=== PATIENT | female | born 1950 | race Caucasian/White ===

== ENCOUNTER → 2017-02-20 | Outpatient (CLI) | payer MEDICARE ==
[~2017-02-20] MED LIST: AMLO2.5T PO; AMLO5TAB2 PO; ASPI-198 PO; BIOT800T PO; CALC-656 PO; CPR500T PO; DIAZ5TAB3 PO; FAMO-119 PO; HYDR-3729 PO; HYDR-3812 PO; METR500T PO; MULT-608 PO; OMEP20CA12 PO; OMEP40CA36 PO; OXYC-12 PO; POLY17PO23 PO; SIMV20TA3 PO
[2017-02-20 15:42] LABS: BASOPHILS % (AUTO) 0 % (0-10); EOSINOPHILS # (AUTO) 0.4 10^3/uL (0.0-0.3); EOSINOPHILS % (AUTO) 5 % (0-10); LYMPHOCYTES # (AUTO) 2.9 X 10^3 (1.0-4.0); LYMPHOCYTES % (AUTO) 41 % (12-44); MEAN CORPUSCULAR HEMOGLOBIN 30 PG (25-34); MEAN CORPUSCULAR HGB CONC 33 G/DL (32-36); MEAN CORPUSCULAR VOLUME 92 FL (80-99); MEAN PLATELET VOLUME 9.8 FL (7.4-10.4); MONOCYTES # (AUTO) 0.5 X 10^3 (0.0-1.0); MONOCYTES % (AUTO) 7 % (0-12); NEUTROPHILS # (AUTO) 3.3 X 10^3 (1.8-7.8); NEUTROPHILS % (AUTO) 47 % (42-75); PLATELET COUNT 253 10^3/uL (130-400); RED BLOOD COUNT 4.03 10^6/uL (4.35-5.85); RED CELL DISTRIBUTION WIDTH 13.6 % (10.0-14.5); WHITE BLOOD COUNT 7.1 10^3/uL (4.3-11.0)
[2017-02-20 16:02] LABS: ERYTHROCYTE SEDIMENTATION RATE 7 MM/HR (0-30)
[2017-02-20 16:12] LABS: ALANINE AMINOTRANSFERASE 16 U/L (0-55); ALBUMIN 3.8 GM/DL (3.2-4.5); ANION GAP 8 MMOL/L (5-14); ASPARTATE AMINO TRANSFERASE 17 U/L (5-34); BILIRUBIN,TOTAL 0.5 MG/DL (0.1-1.0); BLOOD UREA NITROGEN 13 MG/DL (7-18); BUN/CREATININE RATIO 19; CALCIUM 9.1 MG/DL (8.5-10.1); CARBON DIOXIDE 28 MMOL/L (21-32); CHLORIDE 103 MMOL/L (98-107); CREATININE SERUM 0.67 MG/DL (0.60-1.30); GFR ESTIMATED > 60; GLUCOSE 80 MG/DL (70-105); POTASSIUM 3.4 MMOL/L (3.6-5.0); SODIUM 139 MMOL/L (135-145); TOTAL PROTEIN 6.6 GM/DL (6.4-8.2); URIC ACID 4.7 MG/DL (2.6-7.2)
--- NOTE | 2017-02-20 16:35 | Diagnostic Imaging Report ---
EXAMINATION: Left lower extremity duplex venous ultrasound. TECHNIQUE: DVT protocol. Multiple sonographic images with color Doppler and waveform interrogation were performed of the left lower extremity veins with compression and augmentation maneuvers. INDICATION: Left leg pain. FINDINGS: The left lower extremity veins from the groin to below the knee veins were examined with normal color-flow, compressibility and waveform demonstrated. The great saphenous vein is patent. IMPRESSION: No evidence of DVT in the left lower extremity. Dictated by: Dictated on workstation # [id number]
== END ==
LOC: RAD 15:15
PROVIDERS: ATTEND Internal Medicine
DX: M79.605 Pain in left leg (principal)
CPT/HCPCS: 36415; 80053; 84550; 85025; 85652

== ENCOUNTER → 2017-03-01 | Outpatient (CLI) | payer MEDICARE ==
--- NOTE | 2017-03-01 19:46 | Diagnostic Imaging Report ---
Bilateral screening mammogram 2D views with tomosynthesis The current study was also evaluated with a Computer Aided Detection (CAD) system. Indication: Screening. No current complaints stated on the questionnaire. COMPARISON: 02/29/16. FINDINGS: The breasts are composed of heterogeneously dense parenchyma which may decrease mammographic sensitivity. No mass, architectural distortion or suspicious cluster of calcifications seen. Allowing for technique and positional differences, no suspicious change is seen. IMPRESSION: Dense breasts with no definite change. ACR BI-RADS Category 2: Benign findings. Result letter will be mailed to the patient. Note: At least 10% of breast cancer is not imaged by mammography. Dictated by: Dictated on workstation # [id number]
== END ==
LOC: RAD 08:59
PROVIDERS: ATTEND Internal Medicine
DX: Z12.31 Encounter for screening mammogram for malignant neoplasm of breast (principal)
CPT/HCPCS: 77067

== ENCOUNTER 2017-05-02 08:57 | Emergency (ER) | payer MEDICARE ==
[~2017-05-02] VITALS: Ht 165.1 cm; Wt 68.0 kg
[~2017-05-02 08:57] MED LIST changes: +ACHD5005 PO; -HYDR-3812 PO
--- NOTE | 2017-05-02 09:27 | ED GU-Female ---
General Stated Complaint: BREAKOUTS AND PAIN IN GENITAL AREA Source: patient History of Present Illness Time seen by provider: 09:17 Initial Comments C/O SEVERE PAIN AND " RASH" IN GENITAL AREA SINCE 04/28/17 PT HAD UTI SYMPTOMS AND ON 04/08 WAS PLACED ON CIPRO ON 04/21/17, SAW DENTIST FOR JAW PAIN AND WAS PLACED ON AMOXIL BEGAN HAVING THESE SYMPTOMS ON 04/28/17--THOUGHT SHE HAD A YEAST INFECTION FROM THE ANTIBIOTICS-- AND WAS STARTED ON FLUCONAZOLE-SUPPOSED TO TAKE FOR 5 DAYS, BUT HAS ONLY TAKEN 2 PILLS PT STATES SHE STILL HAS BURNING ON URINATION AND SOME INCONTINENCE ON URINATION C/O SWOLLEN GLANDS IN BILATERAL GROIN AREA X 2 DAYS NO KNOWN FEVER, BUT HAD BRIEF EPISODE OF NAUSEA THIS AM--NOT NOW NO ABDOMINAL PAIN OR BACK PAIN NO SIGNIFICANT VAGINAL DISCHARGE PT HAS HAD SAME SEXUAL PARTNER FOR THE LAST 6 MONTHS. PRIOR TO 6 MONTHS AGO, PT HAD BEEN CELIBATE FOR MANY YEARS. LAST INTERCOURSE WAS 04/28/17--WAS HAVING SYMPTOMS AT THAT TIME, BUT SYMPTOMS HAVE GOTTEN WORSE SINCE THEN NO HISTORY OF SIMILAR HAS NOT TAKEN ANYTHING FOR PAIN Allergies and Home Medications Allergies Coded Allergies: Sulfa (Sulfonamide Antibiotics) (Verified Allergy, Unknown, FACE SWELLING / SECRETIONS, 10/13/15) Home Medications Acyclovir 30 Gm Oint, 30 GM TP Q4H, #1 Prescribed by: ROBYN KHAN on 05/02/17 1012 Amlodipine Besylate 5 Mg Tablet, 5 MG PO HS, (Reported) Diazepam 5 Mg Tablet, 10 MG PO HS, #10 Prescribed by: PROSPER COCHRAN on 10/19/15 0956 Famotidine 20 Mg Tablet, 20 MG PO DAILY PRN for HEARTBURN, (Reported) Hydrocodone/Acetaminophen 1 Each Tablet, 1-2 TAB PO Q4H PRN for pain, #60 Prescribed by: PROSPER COCHRAN on 10/19/15 0956 Hydrocodone/Ibuprofen 1 Each Tablet, 1-2 EACH PO Q4H, #20 Prescribed by: ROBYN KHAN on 05/02/17 1012 Lidocaine HCl 15 Ml Solution, 15 ML MM Q 1-2 HOURS, #120 Prescribed by: ROBYN KHAN on 05/02/17 1012 Multivitamins 1 Tab Tablet, 1 TAB PO HS, (Reported) Omeprazole 20 Mg Capsule.dr, 20 MG PO DAILY PRN for HEARTBURN, (Reported) Polyethylene Glycol 3350 17 Gm Powd.pack, 17 GM PO DAILY PRN PRN for CONSTIPATION, #1 Prescribed by: PROSPER COCHRAN on 10/19/15 0956 Simvastatin 20 Mg Tablet, 20 MG PO HS, (Reported) Valacyclovir HCl 1,000 Mg Tablet, 1,000 MG PO TID, #30 Prescribed by: ROBYN KHAN on 05/02/17 1012 Constitutional: no symptoms reported Respiratory: no symptoms reported Cardiovascular: no symptoms reported Gastrointestinal: see HPI Genitourinary: see HPI : No Musculoskeletal: no symptoms reported Skin: no symptoms reported Psychiatric/Neurological: No Symptoms Reported Past Tqjeyjw-Enpbqi-Hoqpgy Hx Patient Social History Recent Foreign Travel: No Contact w/Someone Who Travel: No Immunizations Up To Date Date of Pneumonia Vaccine: Jun 01, 2010 Seasonal Allergies Seasonal Allergies: No Cardiovascular Cardiac Disorders: High Cholesterol, Hypertension Neurological History of Neurological Disord: No Reproductive System Hx Reproductive Disorders: No Sexually Transmitted Disease: No HIV/AIDS: No Gastrointestinal History of Gastrointestinal Di: Yes Gastrointestinal Disorders: Gastroesophageal Reflux, Huerta's Esophagus, Chronic Constipation, Hiatal Hernia Musculoskeletal History of Musculoskeletal Dis: No Endocrine History of Endocrine Disorders: No HEENT History of HEENT Disorders: No Cancer History of Cancer: No Psychosocial History of Psychiatric Problem: Yes Behavioral Health Disorders: Anxiety Integumentary History of Skin or Integumenta: No Blood Transfusions History of Blood Disorders: No Adverse Reaction to a Blood Tr: No Family Medical History Significant Family History: No Pertinent Family Hx Family Medial History: Unknown family medical history 19 FATHER 19 MOTHER G8 BROTHER G8 SISTER Physical Exam Vital Signs Vital Sign - Last 12Hours 05/02/17 09:30 Temp 100.0 Pulse 84 Resp 18 B/P (MAP) 144/82 (102) Pulse Ox 97 O2 Delivery Room Air Capillary Refill : General Appearance: WD/WN, no apparent distress, thin Cardiovascular: regular rate, rhythm Respiratory: normal breath sounds Gastrointestinal: normal bowel sounds, non tender, soft Pelvic: other (EXTENSIVE ULCERATIONS TO LABIA, INTROITUS AND EXTENDING TO MONS AREA. MODERATE SWELLING OF AFFECTED AREA WELL. +BILATERAL INGUINAL ADENOPATHY. UNABLE TO DO SPECULUM OR DIGITAL EXAM DUE TO SEVERE PAIN, AND HAD MUCH DIFFICULTY OBTAINING SPECIMEN SWABS OF VAGINAL AREA AND OF LESIONS/ULCERS, DUE TO SEVERE PAIN . 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, no motor/sensory deficits, alert, oriented x 3 Skin: normal color, warm/dry Lymphatic: inguinal node tender (R), inguinal node tender (L) Progress/Results/Core Measures Suspected Sepsis SIRS Temperature: Pulse: Respiratory Rate: Laboratory Tests 05/02/17 10:21: White Blood Count 7.1 Blood Pressure / Mean: Laboratory Tests 05/02/17 10:21: Platelet Count 232 Results/Orders Lab Results Laboratory Tests Test 05/02/17 09:31 05/02/17 10:21 Range/Units Urine Color YELLOW Urine Clarity SLIGHTLY CLOUDY Urine pH 7 5-9 Urine Specific Patriot 1.005 L 1.016-1.022 Urine Protein 2+ H NEGATIVE Urine Glucose (UA) NEGATIVE NEGATIVE Urine Ketones 2+ H NEGATIVE Urine Nitrite NEGATIVE NEGATIVE Urine Bilirubin NEGATIVE NEGATIVE Urine Urobilinogen NORMAL NORMAL MG/DL Urine Leukocyte Esterase 3+ H NEGATIVE Urine RBC (Auto) 3+ H NEGATIVE Urine RBC 5-10 H /HPF Urine WBC 25-50 H /HPF Urine Squamous Epithelial Cells 2-5 /HPF Urine Crystals NONE /LPF Urine Bacteria NEGATIVE /HPF Urine Casts NONE /LPF Urine Mucus SMALL H /LPF Urine Culture Indicated YES White Blood Count 7.1 4.3-11.0 10^3/uL Red Blood Count 4.32 L 4.35-5.85 10^6/uL Hemoglobin 13.1 11.5-16.0 G/DL Hematocrit 40 35-52 % Mean Corpuscular Volume 92 80-99 FL Mean Corpuscular Hemoglobin 30 25-34 PG Mean Corpuscular Hemoglobin Concent 33 32-36 G/DL Red Cell Distribution Width 13.4 10.0-14.5 % Platelet Count 232 130-400 10^3/uL Mean Platelet Volume 9.3 7.4-10.4 FL Neutrophils (%) (Auto) 77 H 42-75 % Lymphocytes (%) (Auto) 13 12-44 % Monocytes (%) (Auto) 9 0-12 % Eosinophils (%) (Auto) 1 0-10 % Basophils (%) (Auto) 1 0-10 % Neutrophils # (Auto) 5.5 1.8-7.8 X 10^3 Lymphocytes # (Auto) 0.9 L 1.0-4.0 X 10^3 Monocytes # (Auto) 0.6 0.0-1.0 X 10^3 Eosinophils # (Auto) 0.1 0.0-0.3 10^3/uL Basophils # (Auto) 0.0 0.0-0.1 10^3/uL Micro Results Microbiology 05/02/17 Genital Culture, Resulted Pending 05/02/17 LORENZO Preparation, Resulted Pending 05/02/17 Wet Prep - Final, Resulted My Orders Orders - ROBYN KHAN DO Ua Culture If Indicated (05/02/17 09:27) Urine Culture (05/02/17 09:31) Neisseria Gonorrhea Dna (05/02/17 09:59) Chlam Dna Probe (05/02/17 09:59) Genital Culture (05/02/17 09:59) Wet Prep (05/02/17 09:59) Lorenzo Prep (05/02/17 09:59) Herpes Simplex Culture (05/02/17 09:59) Herpes Simplex Virus 1&2 G&M (05/02/17 09:59) Cbc With Automated Diff (05/02/17 09:59) Comprehensive Metabolic Panel (05/02/17 09:59) Hepatitis Panel Acute (05/02/17 09:59) Hiv 1&2 Antibody (05/02/17 09:59) Syphilis Antibody Screen (05/02/17 09:59) Ceftriaxone Injection (Rocephin Injectio (05/02/17 10:00) Lidocaine 1% Injection (Xylocaine 1% Inj (05/02/17 10:00) Azithromycin Tablet (Zithromax Tablet) (05/02/17 10:00) Lidocaine Pf 1% 5 Ml Injection (Xylocain (05/02/17 10:31) Vital Signs/I&O Vital Sign - Last 12Hours 05/02/17 09:30 Temp 100.0 Pulse 84 Resp 18 B/P (MAP) 144/82 (102) Pulse Ox 97 O2 Delivery Room Air Capillary Refill : Departure Impression Impression: Primary Impression: Genital ulcer, female Additional Impression: suspected genital herpes Disposition: 01 HOME, SELF-CARE Condition: Stable Departure-Patient Inst. Referrals: PROSPER COCHRAN DO (PCP/Family) Primary Care Physician Patient Instructions: Genital Herpes (DC), Sexually-Transmitted Diseases (DC) Add. Discharge Instructions: NO INTERCOURSE UNTIL YOU ARE RECHECKED AND CLEARED BY YOUR DR. TYLENOL AND MOTRIN NEEDED FOR PAIN FOLLOW UP WITH DR. COCHRAN THIS WEEK FOR FURTHER CARE Scripts Lidocaine HCl (Lidocaine HCl Viscous) 15 Ml Solution 15 ML MM Q 1-2 HOURS for Pain, #120 ML Prov: ROBYN KHAN DO 05/02/17 Acyclovir (Zovirax) 30 Gm Oint 30 GM TP Q4H, #1 TUBE Prov: ROBYN KHAN DO 05/02/17 Valacyclovir HCl (Valtrex) 1,000 Mg Tablet 1000 MG PO TID, #30 TAB Prov: ROBYN KHAN DO 05/02/17 Hydrocodone/Ibuprofen (Hydrocodone-Ibuprofen 7.5-200) 1 Each Tablet 1-2 EACH PO Q4H for Pain, #20 TAB Prov: ROBYN KHAN DO 05/02/17 ROBYN KHAN DO May 02, 2017 09:27
[2017-05-02 09:36] LABS: BILIRUBIN,URINE NEGATIVE (NEGATIVE); KETONES,URINE 2+ (NEGATIVE); LEUKOCYTE ESTERASE ,URINE 3+ (NEGATIVE); NITRITE,URINE NEGATIVE (NEGATIVE); PH,URINE 7 (5-9); PROTEIN,URINE 2+ (NEGATIVE); UROBILINOGEN,URINE NORMAL (NORMAL)
[2017-05-02 09:51] LABS: WBC,URINE 25-50 /HPF
[2017-05-02] MEDS ORDERED: LIDOCAINE 1% INJ 20 ML (XYLOCAINE) VIAL INJ ONE (10:00)
[2017-05-02] MEDS ORDERED: cefTRIAXone 1 GM (ROCEPHIN) VIAL IM ONE (10:00)
[2017-05-02] MEDS ORDERED: AZITHROMYCIN 250 MG TAB (ZITHROMAX) PO ONE (10:00)
[2017-05-02] MEDS ORDERED: VALA10004 PO (10:12)
[2017-05-02] MEDS ORDERED: LIDO15SO2 MM (10:12)
[2017-05-02] MEDS ORDERED: ACYC30OI TP (10:12)
[2017-05-02] MEDS ORDERED: HYDR-87 PO (10:12)
[2017-05-02 10:29] LABS: BASOPHILS % (AUTO) 1 % (0-10); EOSINOPHILS # (AUTO) 0.1 10^3/uL (0.0-0.3); EOSINOPHILS % (AUTO) 1 % (0-10); LYMPHOCYTES # (AUTO) 0.9 X 10^3 (1.0-4.0); LYMPHOCYTES % (AUTO) 13 % (12-44); MEAN CORPUSCULAR HEMOGLOBIN 30 PG (25-34); MEAN CORPUSCULAR HGB CONC 33 G/DL (32-36); MEAN CORPUSCULAR VOLUME 92 FL (80-99); MEAN PLATELET VOLUME 9.3 FL (7.4-10.4); MONOCYTES # (AUTO) 0.6 X 10^3 (0.0-1.0); MONOCYTES % (AUTO) 9 % (0-12); NEUTROPHILS # (AUTO) 5.5 X 10^3 (1.8-7.8); NEUTROPHILS % (AUTO) 77 % (42-75); PLATELET COUNT 232 10^3/uL (130-400); RED BLOOD COUNT 4.32 10^6/uL (4.35-5.85); RED CELL DISTRIBUTION WIDTH 13.4 % (10.0-14.5); WHITE BLOOD COUNT 7.1 10^3/uL (4.3-11.0)
[2017-05-02] MEDS ORDERED: LIDOCAINE PF 1% 5 ML (XYLOCAINE) AMP ONE (10:31)
[2017-05-02 10:53] LABS: ALANINE AMINOTRANSFERASE 14 U/L (0-55); ALBUMIN 3.8 GM/DL (3.2-4.5); ANION GAP 13 MMOL/L (5-14); ASPARTATE AMINO TRANSFERASE 15 U/L (5-34); BILIRUBIN,TOTAL 0.5 MG/DL (0.1-1.0); BLOOD UREA NITROGEN 10 MG/DL (7-18); BUN/CREATININE RATIO 15; CALCIUM 8.5 MG/DL (8.5-10.1); CARBON DIOXIDE 24 MMOL/L (21-32); CHLORIDE 102 MMOL/L (98-107); CREATININE SERUM 0.68 MG/DL (0.60-1.30); GFR ESTIMATED > 60; GLUCOSE 93 MG/DL (70-105); POTASSIUM 3.4 MMOL/L (3.6-5.0); SODIUM 139 MMOL/L (135-145); TOTAL PROTEIN 6.5 GM/DL (6.4-8.2)
[2017-05-02 10:55] VITALS: BP 144/82
[2017-05-03 06:42] LABS: HIV AG AB SCREEN Non-Reactive (Non-Reactive)
[2017-05-03 06:43] LABS: SYPHILIS SCREEN PT Non-Reactive (Non-Reactive)
[2017-05-03 06:50] LABS: HERPES SIMPLEX VIRUS 1 IGG/EIA 5.67 H INDEX (0.00-0.89)
[2017-05-03 06:51] LABS: HSV 1 IGG INTRP Positive (Negative)
[2017-05-03 06:52] LABS: HERPES SIMPLEX VIRUS 2 IGG EIA 0.32 INDEX (0.00-0.89); HSV 2 IGG INTRP Negative (Negative)
[2017-05-04 06:30] LABS: CHLAMYDIA DNA PROBE PT Not Detected (Not Detected)
[2017-05-04 06:31] LABS: NEISSERIA GONORRHEA DNA Not Detected (Not Detected)
== END 2017-05-02 10:59 | disposition home or self-care (01) ==
LOC: EDUNIT# 08:57 → ER 08:59
DX: N76.6 Ulceration of vulva (principal); E78.00 Pure hypercholesterolemia, unspecified; I10 Essential (primary) hypertension; K21.9 Gastro-esophageal reflux disease without esophagitis; F41.9 Anxiety disorder, unspecified; Z87.19 Personal history of other diseases of the digestive system
CPT/HCPCS: 36415; 80053; 80074; 81000; 85025; 86695; 86696; 86703; 86780; 87070; 87088; 87210; 87220; 87254; 87491; 87591; 99284

== ENCOUNTER 2017-05-04 17:15 | Inpatient (IN) | payer MEDICARE ==
[~2017-05-04] VITALS: Ht 165.1 cm; Wt 68.0 kg
[~2017-05-04 17:15] MED LIST changes: +ACYC30OI TP; +HYDR-87 PO; +LIDO15SO2 MM; +VALA10004 PO
[2017-05-04 17:20] VITALS: BP 147/88
[2017-05-04] MEDS ORDERED: diphenhydrAMINE 25 MG TAB (BENADRYL) PO PRN (18:30)
[2017-05-04] MEDS ORDERED: oxyCODONE/APAP 7.5-325 MG (PERCOCET 7.5) TABLET PO PRN (18:30)
[2017-05-04] MEDS ORDERED: ACETAMINOPHEN 500 MG TAB (TYLENOL) PO PRN (18:30)
[2017-05-04] MEDS ORDERED: IBUPROFEN TABLET 200 MG TAB PO PRN (18:30)
[2017-05-04] MEDS ORDERED: ONDANSETRON 4 MG/2 ML (SDV) Z0FRAN IVP PRN (18:30)
[2017-05-04] MEDS: fentaNYL INJECTION 100 MCG/2 ML AMP IVP PRN ×3 (18:33→23:10)
[2017-05-04] MEDS: NS IV 1000 ML 1,000 ML IV SCH (18:34)
[2017-05-04 18:42] LABS: BASOPHILS % (AUTO) 1 % (0-10); EOSINOPHILS # (AUTO) 0.3 10^3/uL (0.0-0.3); EOSINOPHILS % (AUTO) 4 % (0-10); HEMATOCRIT 38 % (35-52); HEMOGLOBIN 12.9 G/DL (11.5-16.0); LYMPHOCYTES # (AUTO) 2.6 X 10^3 (1.0-4.0); LYMPHOCYTES % (AUTO) 30 % (12-44); MEAN CORPUSCULAR HEMOGLOBIN 31 PG (25-34); MEAN CORPUSCULAR HGB CONC 34 G/DL (32-36); MEAN CORPUSCULAR VOLUME 90 FL (80-99); MEAN PLATELET VOLUME 9.8 FL (7.4-10.4); MONOCYTES # (AUTO) 0.8 X 10^3 (0.0-1.0); MONOCYTES % (AUTO) 9 % (0-12); NEUTROPHILS # (AUTO) 5.1 X 10^3 (1.8-7.8); NEUTROPHILS % (AUTO) 58 % (42-75); PLATELET COUNT 231 10^3/uL (130-400); RED BLOOD COUNT 4.19 10^6/uL (4.35-5.85); RED CELL DISTRIBUTION WIDTH 12.9 % (10.0-14.5); WHITE BLOOD COUNT 8.8 10^3/uL (4.3-11.0)
[2017-05-04] MEDS ORDERED: CATHETER FLUSH 10 ML SYR IV PRN (18:45)
[2017-05-04] MEDS ORDERED: INFLUENZA TRIvalent 2017-2018 0.5 ML/45 MCG SYR IM ONE (18:45)
[2017-05-04 18:59] LABS: ERYTHROCYTE SEDIMENTATION RATE 16 MM/HR (0-30)
[2017-05-04 19:00] LABS: ALANINE AMINOTRANSFERASE 14 U/L (0-55); ALBUMIN 3.7 GM/DL (3.2-4.5); ALKALINE PHOSPHATASE 68 U/L (40-136); BILIRUBIN,TOTAL 0.4 MG/DL (0.1-1.0); BUN/CREATININE RATIO 15; CALCIUM 9.4 MG/DL (8.5-10.1); CARBON DIOXIDE 29 MMOL/L (21-32); CHLORIDE 101 MMOL/L (98-107); CREATININE SERUM 0.68 MG/DL (0.60-1.30); GFR ESTIMATED > 60; GLUCOSE 100 MG/DL (70-105); POTASSIUM 3.7 MMOL/L (3.6-5.0); SODIUM 139 MMOL/L (135-145); TOTAL PROTEIN 6.9 GM/DL (6.4-8.2)
[2017-05-04 19:57] VITALS: BP 127/57
[2017-05-04 20:00] VITALS: BP 131/72
[2017-05-04] MEDS: ALPRAZolam 0.25 MG (XANAX) TAB PO PRN (23:14)
[2017-05-04 23:47] VITALS: BP 122/60
[2017-05-05] MEDS: NS IV 1000 ML 1,000 ML IV SCH ×3 (03:06→19:13)
[2017-05-05 03:56] VITALS: BP 120/65
[2017-05-05] MEDS: fentaNYL INJECTION 100 MCG/2 ML AMP IVP PRN ×2 (05:41→09:30)
[2017-05-05 08:00] VITALS: BP 131/77
[2017-05-05] MEDS: ACYCLOVIR IV SCH ×2 (09:29→16:30)
[2017-05-05] MEDS: D5W IV SCH ×2 (09:29→16:30)
[2017-05-05] MEDS ORDERED: LIDO15SO2 MM (09:53)
[2017-05-05] MEDS ORDERED: NFBIOT1000 PO (10:00)
[2017-05-05] MEDS ORDERED: ASCO-262 PO (10:00)
[2017-05-05] MEDS ORDERED: GINK60CA PO (10:00)
[2017-05-05] MEDS ORDERED: MULT1TAB69 PO (10:00)
[2017-05-05] MEDS ORDERED: CALC-676 PO (10:00)
[2017-05-05] MEDS: PANTOPRAZOLE 40 MG (PROTONIX) TAB PO SCH (11:02)
[2017-05-05] MEDS: SUCRALFATE 1 GM (CARAFATE) TAB PO SCH ×3 (11:02→20:05)
--- NOTE | 2017-05-05 11:02 | Consultation ---
History of Present Illness History of Present Illness Patient Consulted On(fredy/time) 05/05/17 10:57 Date Seen by Provider: May 05, 2017 Time Seen by Provider: 08:35 Reason for Visit: dehydration, rash, vulvovaginal ulcerations, urinary retention History of Present Illness This 67-year-old female is a consultation to me from Dr. Virginia Toro for suspicion of HSV-2 outbreak, as well as associated diffuse laterally rash. The patient reports that this all began with what she suspected was a UTI about 2 weeks ago. She was started on antibiotic, and had a subsequent what she thought was yeast infection. She started the treatment for the yeast infection over the rash in the vagina seemed worse the point that it felt like razor blades. She ended up going to the emergency department the day after Adele , and was told at that visit that she had a herpes outbreak and was started on Valtrex. The next day after undergoing 2 doses of Valtrex she began to have a diffuse bodily rash that she describes is non-pleuritic. She reports diffuse muscle pain especially in her buttocks and hamstring area. She reports pains all over, and reports that this rash is becoming painful to the touch. She denies any fevers, but reports a weight loss of 15 pounds in the last month and a half. She reports that she underwent hysterectomy in her 30s for endometriosis followed by subsequent bilateral oophorectomy later in her 30s. She reports being on estrogen replacement for a period of time however when she began to approach menopausal age she was taken off the hormone replacement. Otherwise she reports herself as being a fairly healthy young lady. She recently became sexually active with a new partner who she started seeing in the past 6 months. She denies any history of sexual transmitted diseases in the past denies any history of abnormal Pap smears in the past. Allergies and Home Medications Allergies Coded Allergies: Sulfa (Sulfonamide Antibiotics) (Verified Allergy, Unknown, FACE SWELLING / SECRETIONS, 10/13/15) Home Medications Acyclovir 30 Gm Oint, 30 GM TP Q4H, #1 Prescribed by: ROBYN KHAN on 05/02/17 1012 Amlodipine Besylate 5 Mg Tablet, 5 MG PO DAILY, (Reported) Ascorbate Calcium 500 Mg Tablet, 500 MG PO DAILY, (Reported) Biotin 1,000 Mcg Tablet, 1,000 MCG PO DAILY, (Reported) Calcium Carbonate/Vitamin D3 1 Each Tablet, 1 TAB PO DAILY, (Reported) Ginkgo Biloba Tula Extract 60 Mg Capsule, 60 MG PO DAILY, (Reported) Hydrocodone/Ibuprofen 1 Each Tablet, 1-2 EACH PO Q4H, #20 Prescribed by: ROBYN KHAN on 05/02/17 1012 Lidocaine HCl 15 Ml Solution, 15 ML MM EVERY 1-2 HOURS PRN for PAIN-MILD, ( Reported) Multivitamin 1 Each Tablet, 1 TAB PO DAILY, (Reported) Valacyclovir HCl 1,000 Mg Tablet, 1,000 MG PO TID, #30 Prescribed by: ROBYN KHAN on 05/02/17 1012 Past Cspnnxl-Rbnics-Hanfkq Hx Patient Social History Alcohol Use: Occasionally Uses Recreational Drug Use: No Smoking Status: Never a Smoker Recent Foreign Travel: No Contact w/Someone Who Travel: No Recent Infectious Disease Expo: No Recent Hopitalizations: No Immunizations Up To Date PED Vaccines UTD: Yes Date of Pneumonia Vaccine: Jun 01, 2010 Seasonal Allergies Seasonal Allergies: No Surgeries History of Surgeries: Yes (CYST REMOVED FROM HEAD, UMB HERNIA, scalp lesion) Respiratory History of Respiratory Disorde: No Currently Using CPAP: No Currently Using BIPAP: No Cardiovascular History of Cardiac Disorders: Yes Cardiac Disorders: High Cholesterol, Hypertension Neurological History of Neurological Disord: No Reproductive System Hx Reproductive Disorders: No Sexually Transmitted Disease: No HIV/AIDS: No Genitourinary History of Genitourinary Disor: No Gastrointestinal History of Gastrointestinal Di: Yes Gastrointestinal Disorders: Gastroesophageal Reflux, Huerta's Esophagus, Chronic Constipation, Diverticulosis, Hiatal Hernia Musculoskeletal History of Musculoskeletal Dis: No Endocrine History of Endocrine Disorders: No HEENT History of HEENT Disorders: No Cancer History of Cancer: No Psychosocial History of Psychiatric Problem: Yes Behavioral Health Disorders: Anxiety Integumentary History of Skin or Integumenta: No Blood Transfusions History of Blood Disorders: No Adverse Reaction to a Blood Tr: No Family Medical History Significant Family History: No Pertinent Family Hx Family Medial History: Unknown family medical history 19 FATHER 19 MOTHER G8 BROTHER G8 SISTER Review of Systems-General Constitutional: see HPI EENTM: see HPI Respiratory: see HPI Cardiovascular: see HPI Gastrointestinal: see HPI Genitourinary: see HPI : No Musculoskeletal: see HPI Skin: see HPI Psychiatric/Neurological: See HPI All Other Systems Reviewed Negative Unless Noted: Yes Physical Exam-General Problems Physical Exam Vital Signs Vital Sign - Last 12Hours 05/04/17 17:20 Temp 96.6 Pulse 76 Resp 20 B/P (MAP) 147/88 (107) Pulse Ox 96 O2 Delivery Room Air Capillary Refill : General Appearance: WD/WN, no apparent distress HEENT: PERRL/EOMI Neck: non-tender, supple, normal inspection Respiratory: normal breath sounds Cardiovascular: regular rate, rhythm Gastrointestinal: non tender, soft Rectal: deferred Genital/Rectal: other (there are several circular ulcerations of the vulva as well as diffuse swelling of the vulva making a vaginal exam extremely painful. 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 Toro and pain control and IV fluid hydration Will make further recommendations pending patient's course in response to treatment Clinical Quality Measures DVT/VTE Risk/Contraindication: Risk Factor Score Per Nursin RFS Level Per Nursing on Admit: 3=High JAYESH RODRIGUEZ DO May 05, 2017 11:02
[2017-05-05 12:00] VITALS: BP 128/76
--- NOTE | 2017-05-05 12:07 | History & Physical-Hospitalist ---
HPI History of Present Illness: HPI/Chief Complaint CC: Dehydration due to systemic herpes virus with vulvar inflammation HPI: This is a 67 yoWF clinic pt of [facility]. Pt was seen in clinic yesterday with severe rash and dehydration and vulvar inflammation from blisters from presumed herpes genitalis. No fever, vitals stable, WBC 8.8, CMP normal, CRP elevated 3.29. 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 Rash has not progressed and is looking better. Labs discussed and look good. Pt confirms seeing Dr. White. Pt states she discussed the large hives she had previously with Dr. White Physical exam stable. Pt states he has been coughing Pt states she has been tearing up. Pt states she needs another endoscopy and wonders if her issues are due to stress. I confirmed that this can happen. Pt asked how this started, I informed the pt that we may not know what caused her major symptoms. Pt joked about not having a New Years republican. Scribed by Henna Anderson under direct supervision of Dr. Eliana Cochran. 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) Alcohol Use: Occasionally Uses Recreational Drug Use: No Smoking Status: Never a Smoker Physical Abuse Screen: No Sexual Abuse: No Recent Foreign Travel: No Contact w/other who traveled: No Recent Hopitalizations: No Recent Infectious Disease Expo: No Immunizations Up To Date Pediatric: Yes Date of Pneumonia Vaccine: Jun 01, 2010 Seasonal Allergies Seasonal Allergies: No Surgeries Yes (CYST REMOVED FROM HEAD, UMB HERNIA, scalp lesion) Abdominal (colon resection Dr Masterson 2015) Respiratory No Currently Using CPAP: No Currently Using BIPAP: No Cardiovascular Yes High Cholesterol, Hypertension Neurological No Reproductive System Hx Reproductive Disorders: No Sexually Transmitted Disease: No HIV/AIDS: No Genitourinary No Gastrointestinal Yes Gastroesophageal Reflux, Huerta's Esophagus, Chronic Constipation, Diverticulosis, Hiatal Hernia Musculoskeletal No Endocrine History of Endocrine Disorders: No HEENT History of HEENT Disorders: No Cancer No Psychosocial History of Psychiatric Problem: Yes Behavioral Health Disorders: Anxiety Integumentary History of Skin or Integumenta: No Blood Transfusions History of Blood Disorders: No Adverse Reaction to a Blood Tr: No Family Medical History Significant Family History: No Pertinent Family Hx Family Hx: Unknown family medical history 19 FATHER 19 MOTHER G8 BROTHER G8 SISTER Review of Systems Constitutional: see HPI, dizziness, malaise, weakness EENTM: no symptoms reported Respiratory: no symptoms reported Cardiovascular: no symptoms reported Gastrointestinal: loss of appetite, nausea Genitourinary: dysuria, pain Musculoskeletal: no symptoms reported Skin: see HPI, lesions, rash Psychiatric/Neurological: Anxiety All Other Systems Reviewed Negative Unless Noted: Yes Physical Exam Physical Exam Vital Signs Vital Sign - Last 12Hours 05/04/17 17:20 Temp 96.6 Pulse 76 Resp 20 B/P (MAP) 147/88 (107) Pulse Ox 96 O2 Delivery Room Air Capillary Refill : General Appearance: WD/WN, Chronically ill, Moderate Distress (due to vulvar discomfort), Thin Eyes: Bilateral Eye Normal Inspection, Bilateral Eye PERRL HEENT: PERRL/EOMI, Normal ENT Inspection, Pharynx Normal Neck: Full Range of Motion, Normal Inspection, Non Tender, Supple, Carotid Bruit Respiratory: Chest Non Tender, Lungs Clear, Normal Breath Sounds, No Accessory Muscle Use, No Respiratory Distress Cardiovascular: Regular Rate, Rhythm, No Edema, No Gallop, No JVD, No Murmur, Normal Peripheral Pulses Gastrointestinal: Normal Bowel Sounds, No Organomegaly, No Pulsatile Mass, Non Tender, Soft Genital/Rectal: Other (vesicles severe in periarea) Back: Normal Inspection, No CVA Tenderness, No Vertebral Tenderness Extremity: Normal Capillary Refill, Normal Inspection, Normal Range of Motion, Non Tender, No Calf Tenderness, No Pedal Edema Neurologic/Psychiatric: Alert, Oriented x3, No Motor/Sensory Deficits, Normal Mood/Affect Skin: Normal Color, Warm/Dry Lymphatic: No Adenopathy Results Results/Procedures Lab Laboratory Tests 05/04/17 18:30 Assessment/Plan Admission Diagnosis Systemic herpes outbreak Dehydration Assessment and Plan Plan: Antacid treatment w/PPI and Carafate Maintain on pain medications and IVF AM labs Change to in-pt labs Acyclovir IV Appreciate Dr White consultation Monitor closely Diagnosis/Problems Diagnosis/Problems (1) Herpes simplex, disseminated Status: Acute Assessment & Plan: IV Acyclovir (2) Dehydration Status: Acute Assessment & Plan: IVF (3) Hypertension Status: Chronic (4) Hypercholesteremia Status: Chronic Clinical Quality Measures DVT/VTE Risk/Contraindication: Risk Factor Score Per Nursin RFS Level Per Nursing on Admit: 3=High ELIANA COCHRAN DO May 05, 2017 12:06
[2017-05-05] MEDS ORDERED: ACYCLOVIR TP SCH (12:30)
[2017-05-05] MEDS ORDERED: LIDOCAINE 2% VISCOUS 15 ML UDC MM PRN (12:30)
[2017-05-05] MEDS: HYDROcodone /IBUPROFEN (VICOPROFEN) 7.5 MG/ 200 MG TAB PO SCH ×3 (13:03→20:05)
[2017-05-05 16:59] VITALS: BP 139/71
[2017-05-05 19:32] VITALS: BP 127/71
[2017-05-06] VITALS: BP 142/77
[2017-05-06] MEDS: HYDROcodone /IBUPROFEN (VICOPROFEN) 7.5 MG/ 200 MG TAB PO SCH ×6 (00:06→20:31)
[2017-05-06] MEDS: D5W IV SCH ×3 (00:06→17:06)
[2017-05-06] MEDS: ACYCLOVIR IV SCH ×3 (00:06→17:06)
[2017-05-06] MEDS: ALPRAZolam 0.25 MG (XANAX) TAB PO PRN ×2 (00:55→23:47)
[2017-05-06] MEDS: NS IV 1000 ML 1,000 ML IV SCH (02:30)
[2017-05-06 04:00] VITALS: BP 153/84
[2017-05-06 05:31] LABS: BASOPHILS % (AUTO) 1 % (0-10); EOSINOPHILS # (AUTO) 0.4 10^3/uL (0.0-0.3); EOSINOPHILS % (AUTO) 7 % (0-10); HEMATOCRIT 34 % (35-52); HEMOGLOBIN 11.6 G/DL (11.5-16.0); LYMPHOCYTES # (AUTO) 3.1 X 10^3 (1.0-4.0); LYMPHOCYTES % (AUTO) 51 % (12-44); MEAN CORPUSCULAR HEMOGLOBIN 31 PG (25-34); MEAN CORPUSCULAR HGB CONC 34 G/DL (32-36); MEAN CORPUSCULAR VOLUME 91 FL (80-99); MEAN PLATELET VOLUME 9.4 FL (7.4-10.4); MONOCYTES # (AUTO) 0.4 X 10^3 (0.0-1.0); MONOCYTES % (AUTO) 6 % (0-12); NEUTROPHILS # (AUTO) 2.1 X 10^3 (1.8-7.8); NEUTROPHILS % (AUTO) 36 % (42-75); PLATELET COUNT 236 10^3/uL (130-400); RED BLOOD COUNT 3.77 10^6/uL (4.35-5.85); RED CELL DISTRIBUTION WIDTH 12.9 % (10.0-14.5)
[2017-05-06 05:52] LABS: ALANINE AMINOTRANSFERASE 11 U/L (0-55); ALBUMIN 3.1 GM/DL (3.2-4.5); ALKALINE PHOSPHATASE 52 U/L (40-136); BILIRUBIN,TOTAL 0.4 MG/DL (0.1-1.0); BUN/CREATININE RATIO 11; CALCIUM 7.7 MG/DL (8.5-10.1); CARBON DIOXIDE 26 MMOL/L (21-32); CHLORIDE 106 MMOL/L (98-107); CREATININE SERUM 0.55 MG/DL (0.60-1.30); GFR ESTIMATED > 60; GLUCOSE 87 MG/DL (70-105); POTASSIUM 3.2 MMOL/L (3.6-5.0); SODIUM 140 MMOL/L (135-145); TOTAL PROTEIN 5.4 GM/DL (6.4-8.2)
[2017-05-06] MEDS: SUCRALFATE 1 GM (CARAFATE) TAB PO SCH ×4 (07:29→20:31)
[2017-05-06] MEDS: PANTOPRAZOLE 40 MG (PROTONIX) TAB PO SCH (07:29)
[2017-05-06 08:00] VITALS: BP 144/77
[2017-05-06] MEDS ORDERED: NON-FORMULARY MEDICATION 1 EA EA (Biotin 1,000 MCG) PO SCH (09:00)
[2017-05-06] MEDS ORDERED: GINKGO BILOBA LEAF EXTRACT 60 MG PO SCH (09:00)
[2017-05-06] MEDS: amLODIPine 5 MG (NORVASC) TAB PO SCH (09:22)
[2017-05-06] MEDS: CALCIUM CARB + VIT D 600 MG (CALCARB + D) TAB PO SCH (09:22)
[2017-05-06] MEDS: ASCORBIC ACID (VIT C) 500 MG TABLET PO SCH (09:22)
--- NOTE | 2017-05-06 10:24 | Progress Note-Standard ---
Standard Progress Note Progress Notes/Assess & Plan Date Seen by Provider: May 06, 2017 Time Seen by Provider: 10:15 Progress/Assessment & Plan Patient is doing much better today reports that soreness and buttocks and hamstrings has gotten significantly better. She is not sure if the pain medication is just working better however we have not changed her pain medication regimen since admission. She still has significant swelling in the vulva and is catheterized at this point due to urinary retention and pain with urination. I am continuing IV acyclovir today, will consider transition to oral antiviral agent tomorrow and if able to urinate consider discharge tomorrow or Monday pending continued improvement. Vital Sign - Last 24 Hours 05/05/17 05/05/17 05/05/17 05/05/17 12:00 13:03 16:59 17:39 Temp 98.7 97.8 98.0 98.0 Pulse 67 63 Resp 16 16 B/P (MAP) 128/76 (93) 139/71 (93) Pulse Ox 97 97 O2 Delivery Room Air Room Air 05/05/17 05/06/17 05/06/17 05/06/17 19:32 00:00 04:00 08:00 Temp 97.5 97.2 96.9 98.3 Pulse 71 67 66 69 Resp 18 18 18 20 B/P (MAP) 127/71 (89) 142/77 (98) 153/84 (107) 144/77 (99) Pulse Ox 97 96 96 98 O2 Delivery Room Air Room Air Room Air Room Air Intake and Output 05/05/17 05/05/17 05/06/17 15:00 23:00 07:00 Intake Total 2175 ml 1810 ml 1310 ml Output Total 2000 ml 1325 ml 800 ml Balance 175 ml 485 ml 510 ml Diagnosis: 67-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 JAYESH RODRIGUEZ DO May 06, 2017 10:24 am
[2017-05-06] MEDS ORDERED: KCL 20 MEQ TAB (K-DUR) PO NR (11:38)
[2017-05-06 12:00] VITALS: BP 135/71
[2017-05-06] MEDS: NS W/KCL 20 MEQ/L 1,000 ML IV SCH ×2 (12:06→23:47)
[2017-05-06] MEDS ORDERED: FLEET ENEMA ADULT 1 EA BTL PR PRN (12:30)
[2017-05-06] MEDS ORDERED: BISACODYL 10 MG SUPP (DULCOLAX) PR NR (12:30)
--- NOTE | 2017-05-06 13:19 | Progress Note-Hospitalist ---
Progress Note HPI/CC on Admission CC: Dehydration due to systemic herpes virus with vulvar inflammation HPI: This is a 67 [facility] clinic pt of mine. Pt was seen in clinic yesterday with severe rash and dehydration and vulvar inflammation from blisters from presumed herpes genitalis. No fever, vitals stable, WBC 8.8, CMP normal, CRP elevated 3.29. 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 Rash has not progressed and is looking better. Labs discussed and look good. Pt confirms seeing Dr. White. Pt states she discussed the large hives she had previously with Dr. White Physical exam stable. Pt states he has been coughing Pt states she has been tearing up. Pt states she needs another endoscopy and wonders if her issues are due to stress. I confirmed that this can happen. Pt asked how this started, I informed the pt that we may not know what caused her major symptoms. Pt joked about not having a New Years democrat. Scribed by Henna Anderson under direct supervision of Dr. Eliana Cochran. Progress Notes/Assess & Plan Date Seen 05/06/17 Time Seen by Provider: 10:15 Admission Dx/Process Systemic herpes outbreak Dehydration Diagonsis/Assessment & Plan Patient appears to be doing much better although she has difficulty coping and does not feel like she is doing as well as she should be IV fluids continue but will decrease to 90 mL an hour Low potassium will be replaced by oral route and an IV fluid I appreciate Dr. WHITE in consultation services Rashes much improved Excoriation in the germaine-area high risk for complicated bedsores so she will do more standing and walking today after shower Having difficulty with constipation so will initiate suppository fleets enema and/or soapsuds enema with lactulose No fever, vital signs stable except for blood pressure mild elevation Much improved, pleasant, oriented 3, fatigued Regular rate and rhythm, clear to auscultation bilaterally No edema Rash much improved still excoriation the germaine-area Laboratory Tests 05/06/17 05:22 Assessment: Systemic herpes outbreak placed on IV Acyclovir due to the severity Dehydration maintained in IVF HTN Hypokalemia acute HLP Constipation GERD Plan: Antacid treatment w/PPI and Carafate Maintain on pain medications and IVF AM labs Acyclovir IV Appreciate Dr White consultation Monitor closely Replace potassium Ambulate Likely DC catheter tomorrow Doing much better Diagnosis/Problems Diagnosis/Problems (1) Herpes simplex, disseminated Status: Acute Assessment & Plan: IV Acyclovir (2) Dehydration Status: Acute Assessment & Plan: IVF (3) Hypertension Status: Chronic (4) Hypercholesteremia Status: Chronic ELIANA COCHRAN DO May 06, 2017 13:19
[2017-05-06] MEDS: LACTULOSE SYRUP 10GM/15ML (ENULOSE) 30ML UDC PO SCH ×2 (14:46→20:31)
[2017-05-06 16:00] VITALS: BP 146/77
[2017-05-06 20:32] VITALS: BP 131/79
[2017-05-07] VITALS: BP 132/68
[2017-05-07] MEDS: HYDROcodone /IBUPROFEN (VICOPROFEN) 7.5 MG/ 200 MG TAB PO SCH ×6 (02:26→22:16)
[2017-05-07] MEDS: ACYCLOVIR IV SCH ×2 (02:27→10:09)
[2017-05-07] MEDS: D5W IV SCH ×2 (02:27→10:09)
[2017-05-07 05:36] LABS: BASOPHILS % (AUTO) 0 % (0-10); EOSINOPHILS # (AUTO) 0.4 10^3/uL (0.0-0.3); EOSINOPHILS % (AUTO) 5 % (0-10); HEMATOCRIT 34 % (35-52); LYMPHOCYTES # (AUTO) 3.1 X 10^3 (1.0-4.0); LYMPHOCYTES % (AUTO) 43 % (12-44); MEAN CORPUSCULAR HEMOGLOBIN 30 PG (25-34); MEAN CORPUSCULAR HGB CONC 33 G/DL (32-36); MEAN CORPUSCULAR VOLUME 92 FL (80-99); MEAN PLATELET VOLUME 9.6 FL (7.4-10.4); MONOCYTES # (AUTO) 0.5 X 10^3 (0.0-1.0); MONOCYTES % (AUTO) 7 % (0-12); NEUTROPHILS # (AUTO) 3.1 X 10^3 (1.8-7.8); NEUTROPHILS % (AUTO) 44 % (42-75); PLATELET COUNT 246 10^3/uL (130-400); RED BLOOD COUNT 3.64 10^6/uL (4.35-5.85); RED CELL DISTRIBUTION WIDTH 12.8 % (10.0-14.5); WHITE BLOOD COUNT 7.1 10^3/uL (4.3-11.0)
[2017-05-07] MEDS: PANTOPRAZOLE 40 MG (PROTONIX) TAB PO SCH (05:44)
[2017-05-07] MEDS: SUCRALFATE 1 GM (CARAFATE) TAB PO SCH ×4 (05:44→22:16)
[2017-05-07 05:54] LABS: ALANINE AMINOTRANSFERASE 15 U/L (0-55); ALKALINE PHOSPHATASE 53 U/L (40-136); BILIRUBIN,TOTAL 0.4 MG/DL (0.1-1.0); BUN/CREATININE RATIO 13; CALCIUM 8.4 MG/DL (8.5-10.1); CARBON DIOXIDE 28 MMOL/L (21-32); CHLORIDE 105 MMOL/L (98-107); GFR ESTIMATED > 60; GLUCOSE 91 MG/DL (70-105); POTASSIUM 3.5 MMOL/L (3.6-5.0); SODIUM 140 MMOL/L (135-145); TOTAL PROTEIN 5.4 GM/DL (6.4-8.2)
[2017-05-07 08:00] VITALS: BP 126/75
[2017-05-07] MEDS: CALCIUM CARB + VIT D 600 MG (CALCARB + D) TAB PO SCH (10:07)
[2017-05-07] MEDS: ASCORBIC ACID (VIT C) 500 MG TABLET PO SCH (10:08)
[2017-05-07] MEDS: amLODIPine 5 MG (NORVASC) TAB PO SCH (10:08)
[2017-05-07] MEDS: LACTULOSE SYRUP 10GM/15ML (ENULOSE) 30ML UDC PO SCH ×2 (10:09→22:17)
[2017-05-07] MEDS: NS W/KCL 20 MEQ/L 1,000 ML IV SCH (10:27)
--- NOTE | 2017-05-07 11:39 | Progress Note-Hospitalist ---
Progress Note HPI/CC on Admission CC: Dehydration due to systemic herpes virus with vulvar inflammation HPI: This is a 67 [facility] clinic pt of [facility]. Pt was seen in clinic yesterday with severe rash and dehydration and vulvar inflammation from blisters from presumed herpes genitalis. No fever, vitals stable, WBC 8.8, CMP normal, CRP elevated 3.29. 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 Rash has not progressed and is looking better. Labs discussed and look good. Pt confirms seeing Dr. White. Pt states she discussed the large hives she had previously with Dr. White Physical exam stable. Pt states he has been coughing Pt states she has been tearing up. Pt states she needs another endoscopy and wonders if her issues are due to stress. I confirmed that this can happen. Pt asked how this started, I informed the pt that we may not know what caused her major symptoms. Pt joked about not having a New Years republican. Scribed by Henna Anderson under direct supervision of Dr. Eliana Cochran. Progress Notes/Assess & Plan Date Seen 05/07/17 Time Seen by Provider: 11:15 Admission Dx/Process Systemic herpes outbreak Dehydration Diagonsis/Assessment & Plan Patient appears to be doing much better although she becomes tearful at times HLIVF Low potassium will be replaced by oral route again I appreciate Dr. WHITE in consultation services Rash is much improved Excoriation in the germaine-area high risk for complicated bedsores so she will do more standing and walking today after shower in the halls as did better yesterday Constipation resolved No fever, vital signs stable Much improved, pleasant, oriented 3, fatigued Regular rate and rhythm, clear to auscultation bilaterally No edema Rash much improved still excoriation the germaine-area Laboratory Tests 05/07/17 05:14 05/07/17 05:18 Assessment: Systemic herpes outbreak placed on IV Acyclovir due to the severity Dehydration s/p IVF no HLIVF HTN Hypokalemia acute- replacing HLP Constipation now resolved GERD Plan: Antacid treatment w/PPI and Carafate to be maintained Maintain on pain medications Acyclovir IV to PO today Appreciate Dr White consultation Monitor closely Replace potassium Ambulate Likely DC catheter today Doing much better although she has difficulty coping Diagnosis/Problems Diagnosis/Problems (1) Herpes simplex, disseminated Status: Acute Assessment & Plan: IV Acyclovir (2) Dehydration Status: Acute Assessment & Plan: IVF (3) Hypertension Status: Chronic (4) Hypercholesteremia Status: Chronic ELIANA COCHRAN DO May 07, 2017 11:38
[2017-05-07] MEDS ORDERED: ACYC400T PO (12:10)
--- NOTE | 2017-05-07 12:14 | Progress Note-Standard ---
Standard Progress Note Progress Notes/Assess & Plan Date Seen by Provider: May 07, 2017 Time Seen by Provider: 12:00 Progress/Assessment & Plan Patient continues to improve and doing well. She just had panda removed and feels much better that it is out. 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 Continue pain control regimen as ordered, seems to be working well Anticipate id tomorrow as long as continues to improve and no urinary retention after panda removed today. 10 day course of acyclovir to be called in. I want to see patient back in my office in approx 10 days for re-evaluation, and discussion of care going forward. JAYESH RODRIGUEZ DO May 07, 2017 12:14
[2017-05-07] MEDS: ACYCLOVIR 400 MG TABLET (ZOVIRAX) PO SCH ×3 (13:50→22:16)
[2017-05-07] MEDS: KCL 10 MEQ TAB (MICRO K) PO SCH ×2 (13:50→17:34)
[2017-05-07 16:20] VITALS: BP 131/70
[2017-05-07] MEDS: ALPRAZolam 0.25 MG (XANAX) TAB PO PRN (22:26)
[2017-05-08 00:10] VITALS: BP 120/63
[2017-05-08] MEDS: HYDROcodone /IBUPROFEN (VICOPROFEN) 7.5 MG/ 200 MG TAB PO SCH ×2 (02:00→05:56)
[2017-05-08] MEDS: KCL 10 MEQ TAB (MICRO K) PO SCH ×2 (05:56→12:56)
[2017-05-08] MEDS: SUCRALFATE 1 GM (CARAFATE) TAB PO SCH ×2 (05:57→12:56)
[2017-05-08] MEDS: ACYCLOVIR 400 MG TABLET (ZOVIRAX) PO SCH ×3 (05:57→12:56)
[2017-05-08] MEDS: PANTOPRAZOLE 40 MG (PROTONIX) TAB PO SCH (05:57)
[2017-05-08 08:36] VITALS: BP 125/75
[2017-05-08] MEDS: CALCIUM CARB + VIT D 600 MG (CALCARB + D) TAB PO SCH (08:43)
[2017-05-08] MEDS: amLODIPine 5 MG (NORVASC) TAB PO SCH (08:43)
[2017-05-08] MEDS: LACTULOSE SYRUP 10GM/15ML (ENULOSE) 30ML UDC PO SCH (08:44)
[2017-05-08] MEDS: ASCORBIC ACID (VIT C) 500 MG TABLET PO SCH (08:44)
[2017-05-08] MEDS ORDERED: HYDROcodone /IBUPROFEN (VICOPROFEN) 7.5 MG/ 200 MG TAB PO SCH (10:00)
--- NOTE | 2017-05-08 11:58 | Discharge Summary-Hospitalist ---
Diagnosis/Chief Complaint Date of Admission May 05, 2017 at 11:18 Date of Discharge Discharge Date: May 08, 2017 Admission Diagnosis Systemic herpes outbreak Dehydration Discharge Diagnosis Assessment: Systemic herpes outbreak placed on IV Acyclovir due to the severity Dehydration s/p IVF no HLIVF HTN Hypokalemia acute- replacing HLP Constipation now resolved GERD Plan: Antacid treatment w/PPI and Carafate to be maintained Maintain on pain medications Acyclovir IV to PO today Appreciate Dr Rodriguez consultation Monitor closely Replace potassium Ambulate Likely DC catheter today Doing much better although she has difficulty coping (1) Herpes simplex, disseminated Status: Acute Assessment & Plan: IV Acyclovir (2) Dehydration Status: Acute Assessment & Plan: IVF (3) Hypertension Status: Chronic (4) Hypercholesteremia Status: Chronic Discharge Summary Discharge Physical Examination Allergies: Coded Allergies: Sulfa (Sulfonamide Antibiotics) (Verified Allergy, Unknown, FACE SWELLING / SECRETIONS, 10/13/15) Vitals & I&Os Vital Signs Date Time Temp Pulse Resp B/P (MAP) Pulse Ox O2 Delivery O2 Flow Rate FiO2 05/08/17 09:00 Room Air 05/08/17 08:36 98.2 64 16 125/75 (92) 98 Hospital Course Hospital course: Patient had a standard hospital course after she was directly admitted due to severe dehydration and severe pain due to systemic and severe herpes breakout. Dr. RODRIGUEZ was consulted who is very helpful in evaluating any other source of her problem and acyclovir IV was initiated with good improvement of her symptoms. Pain was resolving at time of discharge she was eating and drinking and bowels were moving and overall felt very well and was in agreement for discharge with close follow-up with me on in the clinic and Dr. RODRIGUEZ in 2 weeks. Discharge Home Medications: Active Scripts Active Acyclovir 400 Mg Tablet 400 Mg PO 5XD 10 Days Zovirax (Acyclovir) 30 Gm Oint 30 Gm TP Q4H Valtrex (Valacyclovir HCl) 1,000 Mg Tablet 1,000 Mg PO TID Hydrocodone-Ibuprofen 7.5-200 (Hydrocodone/Ibuprofen) 1 Each Tablet 1-2 Each PO Q4H Reported Ginkgo Biloba Extract (Ginkgo Biloba [place] Extract) 60 Mg Capsule 60 Mg PO DAILY Calcium 500 + Vit D 200 Caplet (Calcium Carbonate/Vitamin D3) 1 Each Tablet 1 Tab PO DAILY Vitamin C (Ascorbate Calcium) 500 Mg Tablet 500 Mg PO DAILY Biotin 1,000 Mcg Tablet 1,000 Mcg PO DAILY Multivitamins (Multivitamin) 1 Each Tablet 1 Tab PO DAILY Lidocaine HCl Viscous (Lidocaine HCl) 15 Ml Solution 15 Ml MM EVERY 1-2 HOURS PRN Amlodipine Besylate 5 Mg Tablet 5 Mg PO DAILY Instructions to patient/family Please see electronic discharge instructions given to patient. Clinical Quality Measures DVT/VTE Risk/Contraindication: Risk Factor Score Per Nursin RFS Level Per Nursing on Admit: 3=High PROSPER COCHRAN DO May 08, 2017 11:58
--- OUTSIDE RECORDS SUMMARY | 2017-05-09 12:27 | XMS REPORT | Clinical Summary ---
Author Author [facility] Organization [facility] Address Unknown Phone Unavailable Care Team Providers Care Cash Applications Representative Name Role Phone PCP Unavailable Source Comments Some departments are not documenting in the electronic medical record. If you do not see the information that you expected, contact Release of Information in the Health Information Management department at [phone] for further assistance in locating additional records.[facility] Allergies Active Allergy Reactions Severity Noted Date Comments Sulfa (Sulfonamide HIVES 03/22/2012 Antibiotics) Current Medications Prescription Sig. Disp. Refills Start End Date Status Date omeprazole DR(+) Take 40 mg by mouth Active (PRILOSEC) 40 mg capsule daily. Active Problems Not on file Family History Relation Name Status Comments Brother Brother Father Mother Sister Social History Tobacco Use Types Packs/Day Years Used Date Never Smoker Alcohol Use Drinks/Week oz/Week Comments Yes 5 Glasses of 3.0 wine Sex Assigned at Date Recorded Not on file Last Filed Vital Signs Vital Sign Reading Time Taken Blood Pressure 146/87 03/22/2012 2:44 PM [employer] Pulse 65 03/22/2012 2:44 PM [employer] Temperature 36.9 C (98.4 F) 03/22/2012 2:44 PM [employer] Respiratory Rate 16 03/22/2012 2:44 PM [employer] Oxygen Saturation - - Inhaled Oxygen - - Concentration Weight 76.5 kg (168 lb 11.2 oz) 03/22/2012 2:44 PM [employer] Height 162.6 cm (5' 4") 03/22/2012 2:44 PM [employer] Body Mass Index 28.96 03/22/2012 2:44 PM [employer] Plan of Treatment Health Maintenance Due Date Last Done Comments HEPATITIS C SCREENING 1948 PHYSICAL (COMPREHENSIVE) 1955 EXAM PERTUSSIS VACCINE 1959 TETANUS VACCINE 1965 BREAST CANCER SCREENING 1988 COLORECTAL CANCER 1998 SCREENING SHINGLES VACCINE 2008 OSTEOPOROSIS SCREENING 2013 PREVNAR/PNEUMOVAX (#1) 2013 INFLUENZA VACCINE 12/06/2016 Results Not on filefrom Last 3 Months
--- OUTSIDE RECORDS SUMMARY | 2017-05-09 12:29 | XMS REPORT | Continuity of Care Document ---
Author Author [facility] Organization [facility] Address Unknown Phone Unavailable Allergies Active Description Code Type Severity Reaction Onset Reported/Identified Relationship to Patient Clinical Status Yes Sulfa (Sulfonamide Antibiotics) [id number] Drug Allergy Unknown N/A 2015 Yes Sulfa (Sulfonamide Antibiotics) [id number] Drug Allergy Unknown FACE SWELLING/ 10/13/2015 Medications There is no data. Problems Date Dx Coded Attending Type Code Diagnosis Diagnosed By 09/22/2009 Ot 530.81 ESOPHAGEAL REFLUX 09/22/2009 Ot 530.85 EMANUEL'S ESOPHAGUS 09/22/2009 Ot 535.40 OTH SPECIFIED GASTRITIS,W/O MENTION OF H 09/22/2009 Ot 553.3 DIAPHRAGMATIC HERNIA 09/22/2009 Ot 558.9 NONINF GASTROENTERIT NEC 09/22/2009 Ot 562.10 DIVERTICULOSIS COLON (W/O MENT OF HEMORR 09/01/2011 Ot 530.81 ESOPHAGEAL REFLUX 09/01/2011 Ot 553.3 DIAPHRAGMATIC HERNIA 09/01/2011 Ot 787.91 DIARRHEA 12/07/2012 ANDREA ANGEL MD Ot 562.11 DIVERTICULITIS COLON (W/O MENT OF HEMORR 12/07/2012 ANDREA ANGEL MD Ot 789.09 ABDOMINAL PAIN, OTHER SPECIFIED SITE 04/14/2014 Ot V76.12 04/14/2014 Ot 573.8 04/14/2014 Ot 789.06 04/14/2014 Ot 789.06 04/14/2014 Ot V76.12 04/14/2014 Ot 496 04/14/2014 Ot 786.59 04/14/2014 Ot 787.3 04/14/2014 Ot 789.00 04/14/2014 Ot 791.9 04/14/2014 Ot V72.84 04/14/2014 Ot V72.84 04/14/2014 VIN VIVEROS MD Ot 272.4 04/14/2014 VIN VIVEROS MD Ot 459.81 04/14/2014 JACKELINE MARINO, VNI Aayush Ot 715.90 04/14/2014 JF MARINO, MECCA Tom Ot 789.00 04/14/2014 LEENA MARINO, DONA Boyle Ot 553.3 04/14/2014 LEENA MARINO, DONA Boyle Ot 562.10 04/14/2014 LEENA MARINO, DONA Boyle Ot V72.84 04/14/2014 JF MARINO, MECCA Tom Ot V76.12 04/16/2014 KLARISSA MARINO, SONIA Ot 709.9 04/16/2014 KLARISSA MARINO, SONIA Ot V72.84 04/16/2014 KLARISSA MARINO, SONIA Ot V74.8 04/24/2014 KLARISSA MARINO, SONIA Ot 704.[address] [facility] 03/16/2015 Ot 573.8 03/16/2015 Ot 789.06 03/16/2015 Ot 789.06 03/16/2015 Ot V76.12 03/16/2015 Ot 496 03/16/2015 Ot 786.59 03/16/2015 Ot 787.3 03/16/2015 Ot 789.00 03/16/2015 Ot 791.9 03/16/2015 Ot V72.84 03/16/2015 Ot V72.84 03/16/2015 JACKELINE MARINO, VIN Looney Ot 272.4 03/16/2015 JACKELINE MARINO, VIN Looney Ot 459.81 03/16/2015 JACKELINE MARINO, VIN Looney Ot 715.90 03/16/2015 JF MARINO, MECCA Tom Ot 789.00 03/16/2015 LEENA MARINO, DONA Boyle Ot 553.3 03/16/2015 LEENA MARINO, DONA Boyle Ot 562.10 03/16/2015 LEENA MARINO, ODNA Boyle Ot V72.84 03/16/2015 MECCA RHOADES MD Ot V76.12 03/16/2015 KLARISSA MARINO, SONIA Ot 709.9 03/16/2015 KLARISSA MARINO, AVKI Ot V72.84 03/16/2015 KLARISSA MARINO, TAKAAKI Ot V74.8 04/08/2015 SAMMIE VILLARREAL PROSPER Ot E78.5 04/08/2015 SAMMIE VILLARREAL PROSPER Ot G43.119 04/08/2015 COCHRAN DO, PROSPER Ot I10 04/09/2015 COCHRAN DO, PROSPER Ot E78.5 04/09/2015 COCHRAN DO, PROSPER Ot G43.119 04/09/2015 COCHRAN DO, PROSPER Ot I10 08/31/2015 SAMMIE VILLARREAL, PROSPER Ot K57.32 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 09/14/2015 JOSEPH MARINO, THOMAS Tom Ot K57.90 DVRTCLOS OF INTEST, PART UNSP, W/O PERF 09/15/2015 SAMMIE VILLARREAL PROSPER Ot K57.32 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 09/29/2015 JOSEPH MARINO, THOMAS Tom Ot Z01.818 ENCOUNTER FOR OTHER PREPROCEDURAL EXAMIN 09/30/2015 JOSEPH MARINO, THOMAS Tom Ot Z01.818 ENCOUNTER FOR OTHER PREPROCEDURAL EXAMIN 09/30/2015 JOSEPH MARINO, THOMAS Tom Ot K25.9 GASTRIC ULCER, UNSP ACUTE OR CHRONIC, 09/30/2015 JOSEPH MARINO, THOMAS Tom Ot K56.60 UNSPECIFIED INTESTINAL OBSTRUCTION 09/30/2015 JOSEPH MARINO, THOMAS Tom Ot K57.90 DVRTCLOS OF INTEST, PART UNSP, W/O PERF 10/01/2015 JOSEPH MARINO, THOMAS Tom Ot K25.9 GASTRIC ULCER, UNSP ACUTE OR CHRONIC, 10/01/2015 JOSEPH MARINO, THOMAS Tom Ot K56.60 UNSPECIFIED INTESTINAL OBSTRUCTION 10/01/2015 JOSEPH MARINO, THOMAS Tom Ot K57.90 DVRTCLOS OF INTEST, PART UNSP, W/O PERF 10/01/2015 CIERRA COCHRAN DOI Ot K57.32 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 10/01/2015 JOSEPH MARINO, THOMAS Tom Ot K57.90 DVRTCLOS OF INTEST, PART UNSP, W/O PERF 10/07/2015 JOSEPH MARINO, THOMAS Tom Ot K57.90 DVRTCLOS OF INTEST, PART UNSP, W/O PERF 10/08/2015 JOSEPH MARINO, THOMAS Tom Ot K56.60 UNSPECIFIED INTESTINAL OBSTRUCTION 10/08/2015 JOSEPH MARINO, THOMAS Tom Ot Z01.812 ENCOUNTER FOR PREPROCEDURAL LABORATORY E 10/08/2015 THOMAS RUIZ MD Ot Z11.2 ENCOUNTER FOR SCREENING FOR OTHER BACTER 10/09/2015 THOMAS RUIZ MD Ot K25.9 GASTRIC ULCER, UNSP ACUTE OR CHRONIC, 10/09/2015 THOMAS RUIZ MD Ot K56.60 UNSPECIFIED INTESTINAL OBSTRUCTION 10/09/2015 THOMAS RUIZ MD Ot K57.90 DVRTCLOS OF INTEST, PART UNSP, W/O PERF 10/09/2015 THOMAS RUIZ MD Ot K56.60 UNSPECIFIED INTESTINAL OBSTRUCTION 10/09/2015 THOMAS RUIZ MD Ot Z01.812 ENCOUNTER FOR PREPROCEDURAL LABORATORY E 10/09/2015 THOMAS RUIZ MD Ot Z11.2 ENCOUNTER FOR SCREENING FOR OTHER BACTER 10/15/2015 THOMAS RUIZ MD Ot E78.0 PURE HYPERCHOLESTEROLEMIA 10/15/2015 THOMAS RUIZ MD Ot E87.6 HYPOKALEMIA 10/15/2015 THOMAS RUIZ MD Ot F41.9 ANXIETY DISORDER, UNSPECIFIED 10/15/2015 THOMAS RUIZ MD Ot I10 ESSENTIAL (PRIMARY) HYPERTENSION 10/15/2015 THOMAS RUIZ MD Ot K56.69 OTHER INTESTINAL OBSTRUCTION 10/16/2015 THOMAS RUIZ MD Ot E78.0 PURE HYPERCHOLESTEROLEMIA 10/16/2015 THOMAS RUIZ MD Ot E78.5 HYPERLIPIDEMIA, UNSPECIFIED 10/16/2015 THOMAS RUIZ MD Ot E87.6 HYPOKALEMIA 10/16/2015 THOMAS RUIZ MD Ot F41.9 ANXIETY DISORDER, UNSPECIFIED 10/16/2015 THOMAS RUIZ MD Ot I10 ESSENTIAL (PRIMARY) HYPERTENSION 10/16/2015 THOMAS RUIZ MD Ot K56.69 OTHER INTESTINAL OBSTRUCTION 10/16/2015 THOMAS RUIZ MD Ot K57.32 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 10/17/2015 THOMAS RUIZ MD Ot K25.9 GASTRIC ULCER, UNSP ACUTE OR CHRONIC, 10/17/2015 THOMAS RUIZ MD Ot K56.60 UNSPECIFIED INTESTINAL OBSTRUCTION 10/17/2015 THOMAS RUIZ MD Ot K57.90 DVRTCLOS OF INTEST, PART UNSP, W/O PERF 10/19/2015 CIERRA COCHRAN DOI Ot E78.5 HYPERLIPIDEMIA, UNSPECIFIED 10/19/2015 SAMMIE VILLARREAL PROSPER Ot F41.9 ANXIETY DISORDER, UNSPECIFIED 10/19/2015 SAMMIE VILLARREAL PROSPER Ot I10 ESSENTIAL (PRIMARY) HYPERTENSION 10/19/2015 CIERRA COCHRAN DOI Ot K21.9 GASTRO-ESOPHAGEAL REFLUX DISEASE WITHOUT 10/19/2015 CIERRA COCHRAN DOI Ot K59.00 CONSTIPATION, UNSPECIFIED 10/19/2015 SAMMIE VILLARREAL PROSPER Ot R53.1 WEAKNESS 10/19/2015 CIERRA COCHRAN DOI Ot Z48.815 ENCNTR FOR SURGICAL AFTCR FOLLOWING SURG 02/29/2016 Ot V76.12 OTH SCREEN MAMMO-MALIGN NEOPLASM OF ZION 02/29/2016 Ot 496 CHR AIRWAY OBSTRUCT NEC 02/29/2016 Ot 786.59 CHEST PAIN NEC 02/29/2016 Ot 787.3 FLATUL/ ERUCTAT/GAS PAIN 02/29/2016 Ot 789.00 ABDOMINAL PAIN, UNSPECIFIED SITE 02/29/2016 Ot 791.9 ABN URINE FINDINGS NEC 02/29/2016 Ot V72.84 EXAM PRE- OPERATIVE NOS 02/29/2016 Ot V72.84 EXAM PRE- OPERATIVE NOS 02/29/2016 VIN VIVEROS MD Ot 272.4 HYPERLIPIDEMIA NEC/NOS 02/29/2016 VIN VIVEROS MD Ot 459.81 VENOUS INSUFFICIENCY NOS 02/29/2016 VIN VIVEROS MD Ot 715.90 OSTEOARTHROS NOS-UNSPEC 02/29/2016 JF MARINO, MECCA Tom Ot 789.00 ABDOMINAL PAIN, UNSPECIFIED SITE 02/29/2016 LEENA MARINO, DONA Boyle Ot 553.3 DIAPHRAGMATIC HERNIA 02/29/2016 DONA STERN MD Ot 562.10 DIVERTICULOSIS COLON (W/O MENT OF HEMORR 02/29/2016 DONA STERN MD Ot V72.84 EXAM PRE-OPERATIVE NOS 02/29/2016 JF MARINO, MECCA Tom Ot V76.12 OTH SCREEN MAMMO-MALIGN NEOPLASM OF ZION 02/29/2016 KLARISSA MARINO, SONIA Ot 709.9 SKIN DISORDER NOS 02/29/2016 SONIA CYR MD Ot V72.84 EXAM PRE-OPERATIVE NOS 02/29/2016 KLARISSA MARINO, SONIA Ot V74.8 SCREEN-BACTERIAL DIS NEC 02/29/2016 SAMMIE VILLARREAL PROSPER Ot E78.5 HYPERLIPIDEMIA, UNSPECIFIED 02/29/2016 SAMMIE DO PROSPER Ot G43.119 MIGRAINE WITH AURA, INTRACTABLE, WITHOUT 02/29/2016 COCHRANPROSPER SUGGS DO Ot I10 ESSENTIAL (PRIMARY) HYPERTENSION 02/29/2016 COCHRANPROSPER SUGGS DO Ot K57.32 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 02/29/2016 JOSEPH MARINO, THOMAS Tom Ot K57.90 DVRTCLOS OF INTEST, PART UNSP, W/O PERF 02/29/2016 Ot V76.12 OTH SCREEN MAMMO-MALIGN NEOPLASM OF ZION 02/29/2016 Ot 496 CHR AIRWAY OBSTRUCT NEC 02/29/2016 Ot 786.59 CHEST PAIN NEC 02/29/2016 Ot 787.3 FLATUL/ ERUCTAT/GAS PAIN 02/29/2016 Ot 789.00 ABDOMINAL PAIN, UNSPECIFIED SITE 02/29/2016 Ot 791.9 ABN URINE FINDINGS NEC 02/29/2016 Ot V72.84 EXAM PRE- OPERATIVE NOS 02/29/2016 Ot V72.84 EXAM PRE- OPERATIVE NOS 02/29/2016 VIN VIVEROS MD Ot 272.4 HYPERLIPIDEMIA NEC/NOS 02/29/2016 VIN VIVEROS MD Ot 459.81 VENOUS INSUFFICIENCY NOS 02/29/2016 VIN VIVEROS MD Ot 715.90 OSTEOARTHROS NOS-UNSPEC 02/29/2016 JF MARINO, MECCA Tom Ot 789.00 ABDOMINAL PAIN, UNSPECIFIED SITE 02/29/2016 LEENA MARINO, DONA Boyle Ot 553.3 DIAPHRAGMATIC HERNIA 02/29/2016 LEENA MARINO, DONA Boyle Ot 562.10 DIVERTICULOSIS COLON (W/O MENT OF HEMORR 02/29/2016 DONA STERN MD Ot V72.84 EXAM PRE-OPERATIVE NOS 02/29/2016 JF MARINO, MECCA Tom Ot V76.12 OTH SCREEN MAMMO-MALIGN NEOPLASM OF ZION 02/29/2016 KLARISSA MARINO, SONIA Ot 709.9 SKIN DISORDER NOS 02/29/2016 KLARISSA MARINO, SONIA Ot V72.84 EXAM PRE-OPERATIVE NOS 02/29/2016 KLARISSA MARINO, SONIA Ot V74.8 SCREEN-BACTERIAL DIS NEC 02/29/2016 PROSPER COCHRAN DO Ot E78.5 HYPERLIPIDEMIA, UNSPECIFIED 02/29/2016 PROSPER COCHRAN DO Ot G43.119 MIGRAINE WITH AURA, INTRACTABLE, WITHOUT 02/29/2016 PROSPER COCHRAN DO Ot I10 ESSENTIAL (PRIMARY) HYPERTENSION 02/29/2016 PROSPER COCHRAN DO Ot K57.32 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 02/29/2016 JOSEPH MARINO, THOMAS Tom Ot K57.90 DVRTCLOS OF INTEST, PART UNSP, W/O PERF 02/29/2016 PROSPER COCHRAN DO Ot Z12.31 ENCNTR SCREEN MAMMOGRAM FOR MALIGNANT NE 02/29/2016 PROSPER COCHRAN DO Ot Z12.31 ENCNTR SCREEN MAMMOGRAM FOR MALIGNANT NE 03/01/2016 PROSPER COCHRAN DO Ot Z12.31 ENCNTR SCREEN MAMMOGRAM FOR MALIGNANT NE 03/08/2016 PROSPER COCHRAN DO Ot E78.2 MIXED HYPERLIPIDEMIA 03/09/2016 SAMMIE VILLARREAL PROSPER Ot E78.00 PURE HYPERCHOLESTEROLEMIA, UNSPECIFIED 03/09/2016 CIERRA COCHRAN DOI Ot E78.1 PURE HYPERGLYCERIDEMIA 03/09/2016 CIERRA COCHRAN DOI Ot Z00.00 ENCNTR FOR GENERAL ADULT MEDICAL EXAM W03/10/2016 PROSPER COCHRAN DO Ot Z12.31 ENCNTR SCREEN MAMMOGRAM FOR MALIGNANT NE 03/14/2016 CIERRA COCHRAN DOI Ot E78.00 PURE HYPERCHOLESTEROLEMIA, UNSPECIFIED 03/14/2016 SAMMIE VILLARREAL PROSPER Ot E78.1 PURE HYPERGLYCERIDEMIA 03/14/2016 SAMMIE VILLARREAL PROSPER Ot Z00.00 ENCNTR FOR GENERAL ADULT MEDICAL EXAM W03/14/2016 SAMMIE VILLARREAL PROSPER Ot E78.00 PURE HYPERCHOLESTEROLEMIA, UNSPECIFIED 03/14/2016 SAMMIE VILLARREAL PROSPER Ot E78.1 PURE HYPERGLYCERIDEMIA 03/14/2016 SAMMIE VILLARREAL PROSPER Ot Z00.00 ENCNTR FOR GENERAL ADULT MEDICAL EXAM W04/05/2016 SAMMIE VILLARREAL PROSPER Ot E78.00 PURE HYPERCHOLESTEROLEMIA, UNSPECIFIED 04/05/2016 CIERRA COCHRAN DOI Ot E78.1 PURE HYPERGLYCERIDEMIA 04/05/2016 CIERRA COCHRAN DOI Ot Z00.00 ENCNTR FOR GENERAL ADULT MEDICAL EXAM 01/17/2017 SAMMIE VILLARREAL PROSPER Ot Z12.31 ENCNTR SCREEN MAMMOGRAM FOR MALIGNANT NE 02/21/2017 CIERRA COCHRAN DOI Ot M79.605 PAIN IN LEFT LEG 02/27/2017 SAMMIE VILLARREAL PROSPER Ot M79.605 PAIN IN LEFT LEG 02/27/2017 SAMMIE VILLARREAL PROSPER Ot M79.605 PAIN IN LEFT LEG 03/20/2017 SAMMIE VILLARREAL PROSPER Ot M79.605 PAIN IN LEFT LEG 03/22/2017 SAMMIE VILLARREAL PROSPER Ot Z12.31 ENCNTR SCREEN MAMMOGRAM FOR MALIGNANT NE 03/29/2017 CIERRA COCHRAN DOI Ot M79.605 PAIN IN LEFT LEG Procedures Code Description Performed By Performed On [id number] 10/12/2015 [id number] 10/12/2015 Results Test Result Range Comprehensive metabolic panel - 03/08/16 09:36 Serum or plasma sodium measurement (moles/volume) 142 mmol/L 135-145 Serum or plasma potassium measurement (moles/volume) 3.9 mmol/L 3.6-5.0 Serum or plasma chloride measurement (moles/volume) 107 mmol/L 98-107 Carbon dioxide 25 mmol/L 21-32 Serum or plasma anion gap determination (moles/volume) 10 mmol/L 5-14 Serum or plasma urea nitrogen measurement (mass/volume) 16 mg/dL 7-18 Serum or plasma creatinine measurement (mass/volume) 0.68 mg/dL 0.60-1.30 Serum or plasma urea nitrogen/creatinine mass ratio 24 NRG Serum or plasma creatinine measurement with calculation of estimated glomerular filtration rate > NRG Serum or plasma glucose measurement (mass/volume) 87 mg/dL 70-105 Serum or plasma calcium measurement (mass/volume) 9.2 mg/dL 8.5-10.1 Serum or plasma total bilirubin measurement (mass/volume) 0.9 mg/dL 0.1-1.0 Serum or plasma alkaline phosphatase measurement (enzymatic activity/volume) 71 U/L 40-136 Serum or plasma aspartate aminotransferase measurement (enzymatic activity/ volume) 16 U/L 5-34 Serum or plasma alanine aminotransferase measurement (enzymatic activity/volume ) 19 U/L 0-55 Serum or plasma protein measurement (mass/volume) 6.6 g/dL 6.4-8.2 Serum or plasma albumin measurement (mass/volume) 4.0 g/dL 3.2-4.5 Serum or plasma triglyceride measurement (mass/volume) - 03/08/16 09:36 Serum or plasma triglyceride measurement (mass/volume) 67 mg/dL <150 Serum or plasma cholesterol measurement (mass/volume) - 03/08/16 09:36 Serum or plasma cholesterol measurement (mass/volume) 233 mg/dL < 200 THYROID STIMULATING HORMONE - 03/08/16 09:36 THYROID STIMULATING HORMONE 2.58 u[iU]/mL 0.35-4.94 Complete blood count (CBC) with automated white blood cell (WBC) differential - 02/20/17 15:38 Blood leukocytes automated count (number/volume) 7.1 10*3/uL 4.3-11.0 Blood erythrocytes automated count (number/volume) 4.03 10*6/uL 4.35-5.85 Venous blood hemoglobin measurement (mass/volume) 12.2 g/dL 11.5-16.0 Blood hematocrit (volume fraction) 37 % 35-52 Automated erythrocyte mean corpuscular volume 92 [foz_us] 80-99 Automated erythrocyte mean corpuscular hemoglobin (mass per erythrocyte) 30 pg 25-34 Automated erythrocyte mean corpuscular hemoglobin concentration measurement ( mass/volume) 33 g/dL 32-36 Automated erythrocyte distribution width ratio 13.6 % 10.0-14.5 Automated blood platelet count (count/volume) 253 10*3/uL 130-400 Automated blood platelet mean volume measurement 9.8 [foz_us] 7.4-10.4 Automated blood neutrophils/100 leukocytes 47 % 42-75 Automated blood lymphocytes/100 leukocytes 41 % 12-44 Blood monocytes/100 leukocytes 7 % 0-12 Automated blood eosinophils/100 leukocytes 5 % 0-10 Automated blood basophils/100 leukocytes 0 % 0-10 Blood neutrophils automated count (number/volume) 3.3 10*3 1.8-7.8 Blood lymphocytes automated count (number/volume) 2.9 10*3 1.0-4.0 Blood monocytes automated count (number/volume) 0.5 10*3 0.0-1.0 Automated eosinophil count 0.4 10*3/uL 0.0-0.3 Automated blood basophil count (count/volume) 0.0 10*3/uL 0.0-0.1 Erythrocyte sedimentation rate by westergren method - 02/20/17 15:38 Erythrocyte sedimentation rate by westergren method 7 mm 0-30 Comprehensive metabolic panel - 02/20/17 15:38 Serum or plasma sodium measurement (moles/volume) 139 mmol/L 135-145 Serum or plasma potassium measurement (moles/volume) 3.4 mmol/L 3.6-5.0 Serum or plasma chloride measurement (moles/volume) 103 mmol/L 98-107 Carbon dioxide 28 mmol/L 21-32 Serum or plasma anion gap determination (moles/volume) 8 mmol/L 5-14 Serum or plasma urea nitrogen measurement (mass/volume) 13 mg/dL 7-18 Serum or plasma creatinine measurement (mass/volume) 0.67 mg/dL 0.60-1.30 Serum or plasma urea nitrogen/creatinine mass ratio 19 NRG Serum or plasma creatinine measurement with calculation of estimated glomerular filtration rate > NRG Serum or plasma glucose measurement (mass/volume) 80 mg/dL 70-105 Serum or plasma calcium measurement (mass/volume) 9.1 mg/dL 8.5-10.1 Serum or plasma total bilirubin measurement (mass/volume) 0.5 mg/dL 0.1-1.0 Serum or plasma alkaline phosphatase measurement (enzymatic activity/volume) 71 U/L 40-136 Serum or plasma aspartate aminotransferase measurement (enzymatic activity/ volume) 17 U/L 5-34 Serum or plasma alanine aminotransferase measurement (enzymatic activity/volume ) 16 U/L 0-55 Serum or plasma protein measurement (mass/volume) 6.6 g/dL 6.4-8.2 Serum or plasma albumin measurement (mass/volume) 3.8 g/dL 3.2-4.5 Serum or plasma uric acid measurement (mass/volume) - 02/20/17 15:38 Serum or plasma uric acid measurement (mass/volume) 4.7 mg/dL 2.6-7.2 Complete urinalysis with reflex to culture - 05/02/17 09:31 Urine color determination YELLOW NRG Urine clarity determination SLIGHTLY CLOUDY NRG Urine pH measurement by test strip 7 5-9 Specific gravity of urine by test strip 1.005 1.016- 1.022 Urine protein assay by test strip, semi-quantitative 2+ NEGATIVE Urine glucose detection by automated test strip NEGATIVE NEGATIVE Erythrocytes detection in urine sediment by light microscopy 3+ NEGATIVE Urine ketones detection by automated test strip 2+ NEGATIVE Urine nitrite detection by test strip NEGATIVE NEGATIVE Urine total bilirubin detection by test strip NEGATIVE NEGATIVE Urine urobilinogen measurement by automated test strip (mass/volume) NORMAL NORMAL Urine leukocyte esterase detection by dipstick 3+ NEGATIVE Automated urine sediment erythrocyte count by microscopy (number/high power field) [HPF] NRG Automated urine sediment leukocyte count by microscopy (number/high power field ) [HPF] NRG Bacteria detection in urine sediment by light microscopy NEGATIVE NRG Squamous epithelial cells detection in urine sediment by light microscopy 2-5 NRG Crystals detection in urine sediment by light microscopy NONE NRG Casts detection in urine sediment by light microscopy NONE NRG Mucus detection in urine sediment by light microscopy SMALL NRG Complete urinalysis with reflex to culture YES NRG Bacterial urine culture - 05/02/17 09:31 URINE CULTURE RESULTS MORE THAN 3 ISOLATES NRG Bacteria identification in genital specimen by aerobe culture - 05/02/17 09:50 FREE TEXT EXTERNAL PLUS ABUNDANT NORMAL RICKY NRG QUANTITY OF GROWTH Scant Growth NRG Bacteria identification in genital specimen by aerobe culture [id number] NRG Chlamydia trachomatis DNA detection by probe and signal amplification method - 05/02/17 09:50 Chlamydia trachomatis DNA detection by probe and target amplification method Not Detected Not Detected [id number] - 05/02/17 09:50 [id number] Negative Negative Serum herpes simplex virus 1 IgG antibody assay (units/volume) 5.67 H 0.00-0.89 Serum herpes simplex virus 2 IgG antibody assay by immunoassay (units/volume) 0.32 {index_val} 0.00-0.89 Cerebrospinal fluid herpes simplex virus 1+2 IgM antibody assay (units/volume) 0.60 % 0.00-0.89 Human immunodeficiency virus (HIV) type 1 and 2 antibody detection - 05/02/17 09:50 Serum HIV 1+2 antibody detection by immunoblot Non-Reactive Non-Reactive Acute hepatitis panel - 05/02/17 09:50 Confirmatory quantitative serum or plasma hepatitis B virus surface antigen measurement Non-Reactive Non-Reactive Hepatitis A virus IgM antibody assay Non-Reactive Non- Reactive Hepatitis B virus core IgM antibody assay Non-Reactive Non-Reactive Serum hepatitis C virus antibody detection Non-Reactive Non-Reactive Microscopic examination by LORENZO preparation - 05/02/17 09:50 Microscopic examination by LORENZO preparation TNP NRG Microscopic examination by wet preparation - 05/02/17 09:50 WET PREP RESULTS NO YEAST OBSERVED, NO TRICHOMONAS OBSERVED NRG Neisseria gonorrhoeae DNA detection by probe and signal amplification method - 05/02/17 09:50 Gonorrhea amp DNA-urine Not Detected Not Detected Serum reagin antibody assay (units/volume) by RPR - 05/02/17 09:50 Serum reagin antibody assay (units/volume) by RPR Non-Reactive Non-Reactive Herpes simplex virus (HSV) culture - 05/02/17 09:50 Herpes simplex virus (HSV) culture POS NRG Complete blood count (CBC) with automated white blood cell (WBC) differential - 05/02/17 10:21 Blood leukocytes automated count (number/volume) 7.1 10*3/uL 4.3-11.0 Blood erythrocytes automated count (number/volume) 4.32 10*6/uL 4.35-5.85 Venous blood hemoglobin measurement (mass/volume) 13.1 g/dL 11.5-16.0 Blood hematocrit (volume fraction) 40 % 35-52 Automated erythrocyte mean corpuscular volume 92 [foz_us] 80-99 Automated erythrocyte mean corpuscular hemoglobin (mass per erythrocyte) 30 pg 25-34 Automated erythrocyte mean corpuscular hemoglobin concentration measurement ( mass/volume) 33 g/dL 32-36 Automated erythrocyte distribution width ratio 13.4 % 10.0-14.5 Automated blood platelet count (count/volume) 232 10*3/uL 130-400 Automated blood platelet mean volume measurement 9.3 [foz_us] 7.4-10.4 Automated blood neutrophils/100 leukocytes 77 % 42-75 Automated blood lymphocytes/100 leukocytes 13 % 12-44 Blood monocytes/100 leukocytes 9 % 0-12 Automated blood eosinophils/100 leukocytes 1 % 0-10 Automated blood basophils/100 leukocytes 1 % 0-10 Blood neutrophils automated count (number/volume) 5.5 10*3 1.8-7.8 Blood lymphocytes automated count (number/volume) 0.9 10*3 1.0-4.0 Blood monocytes automated count (number/volume) 0.6 10*3 0.0-1.0 Automated eosinophil count 0.1 10*3/uL 0.0-0.3 Automated blood basophil count (count/volume) 0.0 10*3/uL 0.0-0.1 Comprehensive metabolic panel - 05/02/17 10:21 Serum or plasma sodium measurement (moles/volume) 139 mmol/L 135-145 Serum or plasma potassium measurement (moles/volume) 3.4 mmol/L 3.6-5.0 Serum or plasma chloride measurement (moles/volume) 102 mmol/L 98-107 Carbon dioxide 24 mmol/L 21-32 Serum or plasma anion gap determination (moles/volume) 13 mmol/L 5-14 Serum or plasma urea nitrogen measurement (mass/volume) 10 mg/dL 7-18 Serum or plasma creatinine measurement (mass/volume) 0.68 mg/dL 0.60-1.30 Serum or plasma urea nitrogen/creatinine mass ratio 15 NRG Serum or plasma creatinine measurement with calculation of estimated glomerular filtration rate > NRG Serum or plasma glucose measurement (mass/volume) 93 mg/dL 70-105 Serum or plasma calcium measurement (mass/volume) 8.5 mg/dL 8.5-10.1 Serum or plasma total bilirubin measurement (mass/volume) 0.5 mg/dL 0.1-1.0 Serum or plasma alkaline phosphatase measurement (enzymatic activity/volume) 71 U/L 40-136 Serum or plasma aspartate aminotransferase measurement (enzymatic activity/ volume) 15 U/L 5-34 Serum or plasma alanine aminotransferase measurement (enzymatic activity/volume ) 14 U/L 0-55 Serum or plasma protein measurement (mass/volume) 6.5 g/dL 6.4-8.2 Serum or plasma albumin measurement (mass/volume) 3.8 g/dL 3.2-4.5 Complete blood count (CBC) with automated white blood cell (WBC) differential - 05/04/17 18:30 Blood leukocytes automated count (number/volume) 8.8 10*3/uL 4.3-11.0 Blood erythrocytes automated count (number/volume) 4.19 10*6/uL 4.35-5.85 Venous blood hemoglobin measurement (mass/volume) 12.9 g/dL 11.5-16.0 Blood hematocrit (volume fraction) 38 % 35-52 Automated erythrocyte mean corpuscular volume 90 [foz_us] 80-99 Automated erythrocyte mean corpuscular hemoglobin (mass per erythrocyte) 31 pg 25-34 Automated erythrocyte mean corpuscular hemoglobin concentration measurement ( mass/volume) 34 g/dL 32-36 Automated erythrocyte distribution width ratio 12.9 % 10.0-14.5 Automated blood platelet count (count/volume) 231 10*3/uL 130-400 Automated blood platelet mean volume measurement 9.8 [foz_us] 7.4-10.4 Automated blood neutrophils/100 leukocytes 58 % 42-75 Automated blood lymphocytes/100 leukocytes 30 % 12-44 Blood monocytes/100 leukocytes 9 % 0-12 Automated blood eosinophils/100 leukocytes 4 % 0-10 Automated blood basophils/100 leukocytes 1 % 0-10 Blood neutrophils automated count (number/volume) 5.1 10*3 1.8-7.8 Blood lymphocytes automated count (number/volume) 2.6 10*3 1.0-4.0 Blood monocytes automated count (number/volume) 0.8 10*3 0.0-1.0 Automated eosinophil count 0.3 10*3/uL 0.0-0.3 Automated blood basophil count (count/volume) 0.0 10*3/uL 0.0-0.1 Erythrocyte sedimentation rate by westergren method - 05/04/17 18:30 Erythrocyte sedimentation rate by westergren method 16 mm 0-30 Comprehensive metabolic panel - 05/04/17 18:30 Serum or plasma sodium measurement (moles/volume) 139 mmol/L 135-145 Serum or plasma potassium measurement (moles/volume) 3.7 mmol/L 3.6-5.0 Serum or plasma chloride measurement (moles/volume) 101 mmol/L 98-107 Carbon dioxide 29 mmol/L 21-32 Serum or plasma anion gap determination (moles/volume) 9 mmol/L 5-14 Serum or plasma urea nitrogen measurement (mass/volume) 10 mg/dL 7-18 Serum or plasma creatinine measurement (mass/volume) 0.68 mg/dL 0.60-1.30 Serum or plasma urea nitrogen/creatinine mass ratio 15 NRG Serum or plasma creatinine measurement with calculation of estimated glomerular filtration rate > NRG Serum or plasma glucose measurement (mass/volume) 100 mg/dL 70-105 Serum or plasma calcium measurement (mass/volume) 9.4 mg/dL 8.5-10.1 Serum or plasma total bilirubin measurement (mass/volume) 0.4 mg/dL 0.1-1.0 Serum or plasma alkaline phosphatase measurement (enzymatic activity/volume) 68 U/L 40-136 Serum or plasma aspartate aminotransferase measurement (enzymatic activity/ volume) 13 U/L 5-34 Serum or plasma alanine aminotransferase measurement (enzymatic activity/volume ) 14 U/L 0-55 Serum or plasma protein measurement (mass/volume) 6.9 g/dL 6.4-8.2 Serum or plasma albumin measurement (mass/volume) 3.7 g/dL 3.2-4.5 Serum or plasma C reactive protein measurement (mass/volume) - 05/04/17 18:30 Serum or plasma C reactive protein measurement (mass/volume) 3.29 mg /dL 0.00-0.50 Herpes simplex virus (HSV) culture - 05/05/17 09:25 Herpes simplex virus (HSV) culture POS NRG Complete blood count (CBC) with automated white blood cell (WBC) differential - 05/06/17 05:22 Blood leukocytes automated count (number/volume) 6.0 10*3/uL 4.3-11.0 Blood erythrocytes automated count (number/volume) 3.77 10*6/uL 4.35-5.85 Venous blood hemoglobin measurement (mass/volume) 11.6 g/dL 11.5-16.0 Blood hematocrit (volume fraction) 34 % 35-52 Automated erythrocyte mean corpuscular volume 91 [foz_us] 80-99 Automated erythrocyte mean corpuscular hemoglobin (mass per erythrocyte) 31 pg 25-34 Automated erythrocyte mean corpuscular hemoglobin concentration measurement ( mass/volume) 34 g/dL 32-36 Automated erythrocyte distribution width ratio 12.9 % 10.0-14.5 Automated blood platelet count (count/volume) 236 10*3/uL 130-400 Automated blood platelet mean volume measurement 9.4 [foz_us] 7.4-10.4 Automated blood neutrophils/100 leukocytes 36 % 42-75 Automated blood lymphocytes/100 leukocytes 51 % 12-44 Blood monocytes/100 leukocytes 6 % 0-12 Automated blood eosinophils/100 leukocytes 7 % 0-10 Automated blood basophils/100 leukocytes 1 % 0-10 Blood neutrophils automated count (number/volume) 2.1 10*3 1.8-7.8 Blood lymphocytes automated count (number/volume) 3.1 10*3 1.0-4.0 Blood monocytes automated count (number/volume) 0.4 10*3 0.0-1.0 Automated eosinophil count 0.4 10*3/uL 0.0-0.3 Automated blood basophil count (count/volume) 0.0 10*3/uL 0.0-0.1 Comprehensive metabolic panel - 05/06/17 05:22 Serum or plasma sodium measurement (moles/volume) 140 mmol/L 135-145 Serum or plasma potassium measurement (moles/volume) 3.2 mmol/L 3.6-5.0 Serum or plasma chloride measurement (moles/volume) 106 mmol/L 98-107 Carbon dioxide 26 mmol/L 21-32 Serum or plasma anion gap determination (moles/volume) 8 mmol/L 5-14 Serum or plasma urea nitrogen measurement (mass/volume) 6 mg/dL 7-18 Serum or plasma creatinine measurement (mass/volume) 0.55 mg/dL 0.60-1.30 Serum or plasma urea nitrogen/creatinine mass ratio 11 NRG Serum or plasma creatinine measurement with calculation of estimated glomerular filtration rate > NRG Serum or plasma glucose measurement (mass/volume) 87 mg/dL 70-105 Serum or plasma calcium measurement (mass/volume) 7.7 mg/dL 8.5-10.1 Serum or plasma total bilirubin measurement (mass/volume) 0.4 mg/dL 0.1-1.0 Serum or plasma alkaline phosphatase measurement (enzymatic activity/volume) 52 U/L 40-136 Serum or plasma aspartate aminotransferase measurement (enzymatic activity/ volume) 13 U/L 5-34 Serum or plasma alanine aminotransferase measurement (enzymatic activity/volume ) 11 U/L 0-55 Serum or plasma protein measurement (mass/volume) 5.4 g/dL 6.4-8.2 Serum or plasma albumin measurement (mass/volume) 3.1 g/dL 3.2-4.5 Comprehensive metabolic panel - 05/07/17 05:14 Serum or plasma sodium measurement (moles/volume) 140 mmol/L 135-145 Serum or plasma potassium measurement (moles/volume) 3.5 mmol/L 3.6-5.0 Serum or plasma chloride measurement (moles/volume) 105 mmol/L 98-107 Carbon dioxide 28 mmol/L 21-32 Serum or plasma anion gap determination (moles/volume) 7 mmol/L 5-14 Serum or plasma urea nitrogen measurement (mass/volume) 8 mg/dL 7-18 Serum or plasma creatinine measurement (mass/volume) 0.60 mg/dL 0.60-1.30 Serum or plasma urea nitrogen/creatinine mass ratio 13 NRG Serum or plasma creatinine measurement with calculation of estimated glomerular filtration rate > NRG Serum or plasma glucose measurement (mass/volume) 91 mg/dL 70-105 Serum or plasma calcium measurement (mass/volume) 8.4 mg/dL 8.5-10.1 Serum or plasma total bilirubin measurement (mass/volume) 0.4 mg/dL 0.1-1.0 Serum or plasma alkaline phosphatase measurement (enzymatic activity/volume) 53 U/L 40-136 Serum or plasma aspartate aminotransferase measurement (enzymatic activity/ volume) 16 U/L 5-34 Serum or plasma alanine aminotransferase measurement (enzymatic activity/volume ) 15 U/L 0-55 Serum or plasma protein measurement (mass/volume) 5.4 g/dL 6.4-8.2 Serum or plasma albumin measurement (mass/volume) 3.0 g/dL 3.2-4.5 Complete blood count (CBC) with automated white blood cell (WBC) differential - 05/07/17 05:18 Blood leukocytes automated count (number/volume) 7.1 10*3/uL 4.3-11.0 Blood erythrocytes automated count (number/volume) 3.64 10*6/uL 4.35-5.85 Venous blood hemoglobin measurement (mass/volume) 11.0 g/dL 11.5-16.0 Blood hematocrit (volume fraction) 34 % 35-52 Automated erythrocyte mean corpuscular volume 92 [foz_us] 80-99 Automated erythrocyte mean corpuscular hemoglobin (mass per erythrocyte) 30 pg 25-34 Automated erythrocyte mean corpuscular hemoglobin concentration measurement ( mass/volume) 33 g/dL 32-36 Automated erythrocyte distribution width ratio 12.8 % 10.0-14.5 Automated blood platelet count (count/volume) 246 10*3/uL 130-400 Automated blood platelet mean volume measurement 9.6 [foz_us] 7.4-10.4 Automated blood neutrophils/100 leukocytes 44 % 42-75 Automated blood lymphocytes/100 leukocytes 43 % 12-44 Blood monocytes/100 leukocytes 7 % 0-12 Automated blood eosinophils/100 leukocytes 5 % 0-10 Automated blood basophils/100 leukocytes 0 % 0-10 Blood neutrophils automated count (number/volume) 3.1 10*3 1.8-7.8 Blood lymphocytes automated count (number/volume) 3.1 10*3 1.0-4.0 Blood monocytes automated count (number/volume) 0.5 10*3 0.0-1.0 Automated eosinophil count 0.4 10*3/uL 0.0-0.3 Automated blood basophil count (count/volume) 0.0 10*3/uL 0.0-0.1 Encounters ACCT No. Visit Date/Time Discharge Status Pt. Type Provider Facility Loc./Unit Complaint [id number] 03/01/2017 08:59:00 03/01/2017 23:59:59 CLS Outpatient COCHRAN DO PROSPER [facility] RAD Z12.31 [id number] 02/20/2017 15:15:00 02/20/2017 23:59:59 CLS Outpatient COCHRAN DO PROSPER [facility] RAD LT LEG PAIN M79.605 R60.0 [id number] 03/08/2016 09:24:00 03/08/2016 23:59:59 CLS Outpatient COCHRAN DO, PROSPER [facility] LAB ZOO.00,E78.0 [id number] 02/29/2016 14:49:00 02/29/2016 23:59:59 CLS Outpatient COCHRAN DO PROSPER [facility] RAD SCREENING [id number] 10/16/2015 09:45:00 10/19/2015 11:45:00 DIS Inpatient COCHRAN DO PROSPER [facility] 4TH SWB, SIGMOID DIVERTIC STRICTURE [id number] 10/12/2015 11:21:00 10/16/2015 09:30:00 DIS Inpatient THOMAS RUIZ MD [facility] 4TH SIGMOID DIVERTIC STRICTURE [id number] 10/08/2015 10:15:00 10/08/2015 12:19:00 DIS Outpatient THOMAS RUIZ MD [facility] PREOP STRICTURE [id number] 09/30/2015 12:06:00 09/30/2015 17:15:00 DIS Outpatient THOMAS RUIZ MD Via [facility] ABNORMAL CT;GERD [id number] 09/29/2015 05:37:00 09/29/2015 08:28:00 DIS Outpatient THOMAS RUIZ MD [facility] PREOP ABNORMAL CT; GERD [id number] 09/11/2015 12:54:00 09/11/2015 23:59:59 CLS Outpatient THOMAS RUIZ MD [facility] RAD ABD ABSCESS, DIVERTICULITIS,COLON THICKENING [id number] 08/25/2015 10:14:00 08/25/2015 23:59:59 CLS Outpatient PROSPER COCHRAN DO [facility] RAD DIVERTICULITIS OF LARGE INTESTINE W/O PERFORATION [id number] 03/16/2015 13:57:00 03/16/2015 23:59:59 CLS Outpatient PROSPER COCHRAN DO [facility] RAD HEADACHE [id number] 04/24/2014 07:22:00 04/24/2014 11:30:00 DIS Outpatient SONIA CYR MD [facility] SCALP LESION [id number] 04/14/2014 13:30:00 04/14/2014 23:59:59 CLS Outpatient SONIA CYR MD [facility] PREOP SCALP LESION [id number] 02/22/2013 07:32:00 02/22/2013 23:59:59 CLS Outpatient MECCA RHOADES MD [facility] RAD SCREENING [id number] 02/22/2013 07:29:00 02/22/2013 23:59:59 CLS Outpatient DONA STERN MD [facility] BARRX [id number] 02/20/2013 07:20:00 02/20/2013 23:59:59 CLS Outpatient DONA STERN MD [facility] PREOP BARRX [id number] 12/19/2012 12:04:00 12/19/2012 23:59:59 CLS Outpatient MECCA RHOADES MD [facility] RAD HX OF ACUTE DIVERTICULITIS,ABD PAIN [id number] 12/06/2012 22:46:00 12/07/2012 01:52:00 DIS Emergency JEANNE MARINO, ANDREA Boyle [facility] ER ABD PAIN [id number] 10/10/2012 08:29:00 10/10/2012 23:59:59 CLS Outpatient JACKELINE MARINO, VIN Looney [facility] LAB OA,HLP,VENOUS INSUFFICINECY [id number] 05/04/2017 18:44:00 Document Registration [id number] 05/02/2017 09:52:00 Document Registration [id number] 04/14/2014 13:29:00 Document Registration [id number] 09/01/2011 06:28:00 Document Registration [id number] 08/30/2011 07:33:00 Document Registration [id number] 06/23/2011 08:29:00 Document Registration [id number] 11/18/2010 15:14:00 Document Registration [id number] 10/15/2010 15:17:00 Document Registration [id number] 02/25/2010 07:37:00 Document Registration [id number] 10/12/2009 08:12:00 Document Registration [id number] 09/22/2009 08:00:00 Document Registration [id number] 04/01/2009 15:26:00 Document Registration
== END 2017-05-08 15:30 | disposition home or self-care (01) | DRG 866 ==
LOC: 4TH 17:15 → UNDOADMOB 17:20 → 4TH 17:20 → OBSVTOIN 05-05 11:18 → INTOOBSV 05-05 11:18 → UNDODISIN 05-08 15:30
PROVIDERS: ADMIT Internal Medicine; ATTEND Internal Medicine
DX: B00.89 Other herpesviral infection (principal); A60.04 Herpesviral vulvovaginitis; E86.0 Dehydration; R33.9 Retention of urine, unspecified; R21 Rash and other nonspecific skin eruption; E87.6 Hypokalemia; I10 Essential (primary) hypertension; K59.00 Constipation, unspecified; E78.00 Pure hypercholesterolemia, unspecified; E78.5 Hyperlipidemia, unspecified; K21.9 Gastro-esophageal reflux disease without esophagitis
CPT/HCPCS: 36415; 80053; 80074; 81000; 85025; 85652; 86141; 86695; 86696; 86703; 86780; 87070; 87088; 87210; 87220; 87254; 87491; 87591; 96372; 99284; G0378

== ENCOUNTER → 2017-05-31 | Outpatient (CLI) | payer MEDICARE ==
[~2017-05-31] VITALS: Ht 165.1 cm; Wt 62.1 kg
[~2017-05-31] MED LIST changes: +ACYC400T PO; +ASCO-262 PO; +CALC-676 PO; +GINK60CA PO; +MULT1TAB69 PO; +NFBIOT1000 PO
[2017-05-31 20:55] VITALS: BP 141/83
[2017-05-31 21:19] VITALS: BP 141/83
[2017-05-31 21:22] VITALS: BP 163/95
[2017-05-31 21:58] VITALS: BP 155/82
== END ==
LOC: 4THo 20:31
PROVIDERS: ATTEND Internal Medicine
DX: R33.9 Retention of urine, unspecified (principal)

== ENCOUNTER → 2017-09-18 | Outpatient (CLI) | payer MEDICARE ==
--- NOTE | 2017-09-18 09:21 | Diagnostic Imaging Report ---
INDICATION: Abdominal aortic aneurysm. The proximal aorta measures 2.2 x 2.3 cm. Mid aorta is 1.4 x 1.4 cm. Distal aorta is 1.4 x 1.3 cm. The iliacs cannot be visualized due to bowel gas. IMPRESSION: No evidence of abdominal aortic aneurysm. Dictated by: Dictated on workstation # [id number]
== END ==
LOC: RAD 07:26
PROVIDERS: ATTEND Internal Medicine
DX: I71.4 Abdominal aortic aneurysm, without rupture (principal)
CPT/HCPCS: 76775

== ENCOUNTER → 2017-10-05 | Outpatient (CLI) | payer MEDICARE | LOC: CARD 12:25 | PROVIDERS: ATTEND Internal Medicine | DX: R07.9 Chest pain, unspecified (principal); I34.0 Nonrheumatic mitral (valve) insufficiency | CPT/HCPCS: 93306 ==

== ENCOUNTER → 2017-10-06 | Outpatient (CLI) | payer MEDICARE ==
[~2017-10-06] MED LIST changes: +CATHETER FLUSH 10 ML SYR IV PRN; +REGADENOSON 0.4 MG/5 ML SYR (LEXISCAN) IV ONE
--- NOTE | 2017-10-06 14:08 | STRESS TEST ---
DATE OF SERVICE: 10/06/2017 NUCLEAR MYOVIEW REPORT SUMMARY: The patient was injected with 10.48 mCi of technetium-99 Myoview and the resting images were obtained. Then, with peak stress level, the patient received a 31.8 mCi of technetium-99 Myoview. Test was supervised by Dr. Eliana Toro. The resting and stress images were reviewed and compared in the short axis, horizontal long axis, and vertical long axis views. Review of the images showed breast attenuation with mild ischemia involving the basal to mid anterior wall. SSS is 5, SDS 5, TID value 1.04. On the gated images, the left ventricle appeared to be normal in size with normal contractility. Calculated ejection fraction 69%. CONCLUSION: 1. Breast attenuation affecting the quality of the images with mild ischemia at the basal to mid anterior wall, which could be related to the underlying breast attenuation. 2. Normal left ventricular size with normal contractility. Calculated ejection fraction 69%. Job ID: [id number] DocumentID: [id number] Dictated Date: 10/06/2017 11:39:59 Sheet Roller Operator Date: 10/06/2017 14:08:29 Dictated By: NOHEMI PADILLA MD
== END ==
LOC: CARD 06:59
PROVIDERS: ATTEND Internal Medicine
DX: R07.9 Chest pain, unspecified (principal)
CPT/HCPCS: 78452; 93017

== ENCOUNTER → 2018-06-13 | Outpatient (CLI) | payer MEDICARE ==
[~2018-06-13] MED LIST changes: -AMLO2.5T PO; +AMLO2.5T4 PO; -AMLO5TAB2 PO; +AMLO5TAB9 PO; -CATHETER FLUSH 10 ML SYR IV PRN; -POLY17PO23 PO; +POLY17PO31 PO; -REGADENOSON 0.4 MG/5 ML SYR (LEXISCAN) IV ONE
--- NOTE | 2018-06-13 12:56 | Diagnostic Imaging Report ---
PROCEDURE: CT abdomen and pelvis without contrast. TECHNIQUE: Multiple contiguous axial images were obtained through the abdomen and pelvis without the use of intravenous contrast. INDICATION: Left-sided colon surgery 3 years ago, intermittent pain and swelling in that region and in the left lower quadrant. COMPARISON: 10/01/2015. FINDINGS: There is contrast media within the lumen of the large bowel and distal small bowel. No contrast extravasation. No evidence for a bowel obstruction. No pericolonic or perienteric edema. No abdominal wall defect or fluid collection. No pneumatosis. No free gas. No evidence for a bowel obstruction. There are no opaque kidney stones. There is no hydronephrosis. The liver, spleen, adrenals and pancreas are unremarkable. Small mass right hepatic lobe posteroinferiorly today measures 12 mm, previously 23 mm. No new or suspect liver mass. IMPRESSION: 1. No abdominal wall defect, hernia or fluid collection. No obstruction perforation or inflammatory process. 2. No hydronephrosis with 3 mm nonobstructing left renal stone. 3. Right lobe liver mass decreased in size from prior, presumed hemangioma or other benign etiology. 4. No acute appearing abnormality Dictated by: Dictated on workstation # [id number]
== END ==
LOC: RAD 09:51
PROVIDERS: ATTEND Surgery
DX: R16.0 Hepatomegaly, not elsewhere classified (principal); R19.04 Left lower quadrant abdominal swelling, mass and lump; Z98.890 Other specified postprocedural states
CPT/HCPCS: 74176

== ENCOUNTER → 2019-03-08 | Outpatient (CLI) | payer MEDICARE ==
[~2019-03-08] MED LIST changes: +BACI1TAB3 PO; -DIAZ5TAB3 PO; +DIAZ5TAB49 PO; +ESTR0.5T VG; +OMEG10005 PO; +OMEP-280 PO; +UBID100C44 PO
--- NOTE | 2019-03-08 12:08 | Diagnostic Imaging Report ---
INDICATION: Routine screening. Comparison is made with prior mammogram from 03/01/2017 and 02/29/2016. 2-D and 3-D bilateral screening mammography was performed with a Computer Aided Detection (CAD) system. 3-D tomosynthesis was also performed and reviewed. FINDINGS: Both breasts remain heterogeneously dense, limiting the sensitivity of mammography. The parenchymal pattern is stable. No mass or malignant appearing microcalcifications are seen. The axillae are unremarkable. IMPRESSION: No mammographic features suspicious for malignancy are identified. ACR BI-RADS Category 1: Negative. Result letter will be mailed to the patient. Note: At least 10% of breast cancer is not imaged by mammography. Dictated by: Dictated on workstation # [id number]
== END ==
LOC: RAD 10:04
PROVIDERS: ATTEND Internal Medicine
DX: Z12.31 Encounter for screening mammogram for malignant neoplasm of breast (principal)
CPT/HCPCS: 77067

== ENCOUNTER 2019-04-07 17:05 | Inpatient (IN) | payer MEDICARE ==
[~2019-04-07] VITALS: Ht 162 cm; Wt 71.0 kg
[~2019-04-07 17:05] MED LIST changes: -BACI1TAB3 PO; +DIAZ5TAB3 PO; -DIAZ5TAB49 PO; -ESTR0.5T VG; -OMEG10005 PO; -OMEP-280 PO; +OMEP20CA13 PO; -UBID100C44 PO
[2019-04-07] MEDS ORDERED: LACTATED RINGERS 1,000 ML IV ONE (17:27)
[2019-04-07] MEDS ORDERED: HYOSCYAMINE 0.125 MG (LEVSIN) TAB SL ONE (17:30)
[2019-04-07] MEDS ORDERED: KETOROLAC 30 MG/ML VIAL IVP ONE (17:30)
[2019-04-07] MEDS ORDERED: PANTOPRAZOLE 40 MG (PROTONIX) VIAL IV ONE (17:30)
--- NOTE | 2019-04-07 17:37 | ED Abdominal Pain ---
General Chief Complaint: Abdominal/GI Problems Stated Complaint: STOMACH PAIN Source of Information: Patient History of Present Illness Date Seen by Provider: Apr 07, 2019 Time Seen by Provider: 17:21 Initial Comments PT ARRIVES VIA POV FROM HOME C/O SEVERE EPIGASTRIC PAIN HAS BEEN HAVING PAIN IN THIS AREA FOR THE LAST WEEK TODAY SHE ATE LUNCH AROUND 1300 AND PAIN HAS BEEN CONSTANT AND SEVERE--ATE AT [facility], HAD CHIPS AND SALSA AND GRILLED CHICKEN SALAD NO NAUSEA/VOMITING HAD NORMAL BM YESTERDAY NO URINARY SYMPTOMS NO FEVER/SWEATS/CHILLS HAS HISTORY OF EMANUEL'S ESOPHAGITIS, AND DIVERTICULITIS--S/P COLON RESECTION, HAS HAD UMBILICAL HERNIA REPAIR AND HAS HAD HYSTERECTOMY NO OTHER ABDOMINAL SURGERIES--STILL HAS GALLBLADDER AND APPENDIX OCCASIONALLY DRINKS ALCOHOL PCP: DR. COCHRAN Allergies and Home Medications Allergies Coded Allergies: Sulfa (Sulfonamide Antibiotics) (Verified Allergy, Unknown, FACE SWELLING/ SECRETIONS, 10/13/15) Home Medications Acyclovir 400 Mg Tablet, 400 MG PO 5XD Prescribed by: JAYESH RODRIGUEZ on 05/07/17 1210 Amlodipine Besylate 5 Mg Tablet, 5 MG PO DAILY, (Reported) Ascorbate Calcium 500 Mg Tablet, 500 MG PO DAILY, (Reported) Biotin 1,000 Mcg Tablet, 1,000 MCG PO DAILY, (Reported) Calcium Carbonate/Vitamin D3 1 Each Tablet, 1 TAB PO DAILY, (Reported) Ginkgo Biloba [place] Extract 60 Mg Capsule, 60 MG PO DAILY, (Reported) Hydrocodone/Ibuprofen 1 Each Tablet, 1-2 EACH PO Q4H Prescribed by: ROBYN KHAN on 05/02/17 1012 Lidocaine HCl 15 Ml Solution, 15 ML MM EVERY 1-2 HOURS PRN for PAIN-MILD, (Reported) Multivitamin 1 Each Tablet, 1 TAB PO DAILY, (Reported) Patient Home Medication List Home Medication List Reviewed: Yes Review of Systems Review of Systems Constitutional: no symptoms reported; No fever Respiratory: No Symptoms Reported Cardiovascular: No Symptoms Reported, Other (LATER STATES SHE HAS BEEN HAVING SWELLING IN LEGS FOR THE LAST COUPLE OF WEEKS) Gastrointestinal: See HPI, Abdominal Pain; Denies Constipated, Denies Diarrhea, Denies Nausea, Denies Vomiting Genitourinary: No Symptoms Reported Musculoskeletal: no symptoms reported; No back pain Skin: no symptoms reported Psychiatric/Neurological: No Symptoms Reported Endocrine: No Symptoms Reported Hematologic/Lymphatic: No Symptoms Reported Past Prfrwhz-Ypfbrp-Ggdiyy Hx Patient Social History Alcohol Use: Occasionally Uses Recreational Drug Use: No Smoking Status: Never a Smoker Recent Foreign Travel: No Contact w/Someone Who Travel: No Recent Hopitalizations: No Immunizations Up To Date Tetanus Booster (TDap): Unknown PED Vaccines UTD: Yes Date of Pneumonia Vaccine: Jun 01, 2010 Seasonal Allergies Seasonal Allergies: No Past Medical History Surgeries: Yes (CYST REMOVED FROM HEAD; UMBILICAL HERNIA; COLON RESECTION FOR DIVERTICULITIS; EGD/COLONOSCOPY) Abdominal, Bowel Surgery, Hysterectomy, Oophorectomy Respiratory: No Currently Using CPAP: No Currently Using BIPAP: No Cardiac: Yes High Cholesterol, Hypertension Neurological: No Reproductive Disorders: No Sexually Transmitted Disease: No HIV/AIDS: No Genitourinary: No Gastrointestinal: Yes (S/P COLON RESECTION) Gastroesophageal Reflux, Emanuel's Esophagus, Chronic Constipation, Diverticulosis, Hiatal Hernia Musculoskeletal: No Endocrine: No HEENT: No Cancer: No Psychosocial: Yes Anxiety Integumentary: No Blood Disorders: No Adverse Reaction/Blood Tranf: No Family Medical History Unknown family medical history 19 FATHER 19 MOTHER G8 BROTHER G8 SISTER No Pertinent Family Hx Physical Exam Vital Signs Vital Signs - First Documented 04/07/19 17:16 Temp 36.5 Pulse 75 Resp 14 B/P (MAP) 157/98 (117) Pulse Ox 99 O2 Delivery Room Air Capillary Refill : Height/Weight/BMI Height: 5'5.00" Weight: 137lbs. 0.0oz. 62.665306jr; 22.8 BMI Method:Stated General Appearance: WD/WN, no apparent distress (BUT LOOKS UNCOMFORTABLE) Respiratory: normal breath sounds, no respiratory distress, no accessory muscle use Cardiovascular: regular rate, rhythm, no murmur Peripheral Pulses: 2+ Dorsalis Pedis (R), 2+ Left Dors-Pedis (L) Gastrointestinal: normal bowel sounds, soft, no organomegaly, no pulsatile mass; No distended, No guarding, No rebound; tenderness (EPIGASTRIC); No hernia, No mass Extremities: normal range of motion, non-tender, no calf tenderness, normal capillary refill, pedal edema (TRACE BILATERALLY) Back: normal inspection, no CVA tenderness Neurologic/Psychiatric: patrol judge II-XII nml as tested, no motor/sensory deficits, alert, oriented x 3 Skin: normal color, warm/dry Progress/Results/Core Measures Results/Orders Lab Results Laboratory Tests Test 04/07/19 17:24 04/07/19 17:58 Range/Units White Blood Count 7.2 4.3-11.0 10^3/uL Red Blood Count 4.12 L 4.35-5.85 10^6/uL Hemoglobin 13.2 11.5-16.0 G/DL Hematocrit 39 35-52 % Mean Corpuscular Volume 94 80-99 FL Mean Corpuscular Hemoglobin 32 25-34 PG Mean Corpuscular Hemoglobin Concent 34 32-36 G/DL Red Cell Distribution Width 13.5 10.0-14.5 % Platelet Count 272 130-400 10^3/uL Mean Platelet Volume 9.8 7.4-10.4 FL Neutrophils (%) (Auto) 48 42-75 % Lymphocytes (%) (Auto) 40 12-44 % Monocytes (%) (Auto) 8 0-12 % Eosinophils (%) (Auto) 4 0-10 % Basophils (%) (Auto) 1 0-10 % Neutrophils # (Auto) 3.5 1.8-7.8 X 10^3 Lymphocytes # (Auto) 2.9 1.0-4.0 X 10^3 Monocytes # (Auto) 0.6 0.0-1.0 X 10^3 Eosinophils # (Auto) 0.3 0.0-0.3 10^3/uL Basophils # (Auto) 0.0 0.0-0.1 10^3/uL Prothrombin Time 12.8 12.2-14.7 SEC INR Comment 0.9 0.8-1.4 Activated Partial Thromboplast Time 26 24-35 SEC Sodium Level 142 135-145 MMOL/L Potassium Level 3.6 3.6-5.0 MMOL/L Chloride Level 104 98-107 MMOL/L Carbon Dioxide Level 24 21-32 MMOL/L Anion Gap 14 5-14 MMOL/L Blood Urea Nitrogen 7 7-18 MG/DL Creatinine 0.70 0.60-1.30 MG/DL Estimat Glomerular Filtration Rate > 60 BUN/Creatinine Ratio 10 Glucose Level 102 70-105 MG/DL Calcium Level 9.2 8.5-10.1 MG/DL Corrected Calcium 8.9 8.5-10.1 MG/DL Magnesium Level 1.9 1.6-2.4 MG/DL Total Bilirubin 0.3 0.1-1.0 MG/DL Aspartate Amino Transf (AST/SGOT) 19 5-34 U/L Alanine Aminotransferase (ALT/SGPT) 19 0-55 U/L Alkaline Phosphatase 62 40-136 U/L Troponin I 0.051 H <0.028 NG/ML B-Type Natriuretic Peptide 51.9 <100.0 PG/ML Total Protein 7.3 6.4-8.2 GM/DL Albumin 4.4 3.2-4.5 GM/DL Amylase Level 50 25-125 U/L Lipase 28 8-78 U/L Serum Alcohol 10 <10 MG/DL Urine Color YELLOW Urine Clarity CLEAR Urine pH 7.5 5-9 Urine Specific [place] 1.020 1.016-1.022 Urine Protein NEGATIVE NEGATIVE Urine Glucose (UA) NEGATIVE NEGATIVE Urine Ketones NEGATIVE NEGATIVE Urine Nitrite NEGATIVE NEGATIVE Urine Bilirubin NEGATIVE NEGATIVE Urine Urobilinogen 0.2 < = 1.0 MG/DL Urine Leukocyte Esterase NEGATIVE NEGATIVE Urine RBC (Auto) TRACE-I NEGATIVE Urine RBC 0-2 /HPF Urine WBC NONE /HPF Urine Crystals NONE /LPF Urine Bacteria MODERATE H /HPF Urine Casts NONE /LPF Urine Mucus NEGATIVE /LPF Urine Culture Indicated YES My Orders Orders - ROBYN KHAN DO Ed Iv/Invasive Line Start (04/07/19 17:27) Ekg Tracing (04/07/19 17:27) Monitor-Rhythm Ecg Trace Only (04/07/19 17:27) Acute Abd Series (04/07/19 17:27) Alcohol (04/07/19 17:27) Amylase (04/07/19 17:27) Cbc With Automated Diff (04/07/19 17:27) Comprehensive Metabolic Panel (04/07/19 17:27) Lipase (04/07/19 17:27) Magnesium (04/07/19 17:27) Protime With Inr (04/07/19 17:) Partial Thromboplastin Time (04/07/19 17:27) Ua Culture If Indicated (04/07/19 17:27) Troponin I (04/07/19 17:27) Ed Iv/Invasive Line Start (04/07/19 17:27) Lactated Ringers (Lr 1000 Ml Iv Solution (04/07/19 17:27) Hyoscyamine Sl Tablet (Levsin Sl Tablet) (04/07/19 17:30) Pantoprazole Injection (Protonix Injecti (04/07/19 17:30) Ketorolac Injection (Toradol Injection) (04/07/19 17:30) Iohexol Injection (Omnipaque 350 Mg/Ml 1 (04/07/19 18:00) Received Contrast (Hold Metformin- Contr (04/07/19 18:00) Ns (Ivpb) (Sodium Chloride 0.9% Ivpb Bag (04/07/19 18:00) Ct [place] Chest/Noang Abd-Pelv W (04/07/19 18:12) Urine Culture (04/07/19 17:58) BNP (04/07/19 18:19) Aspirin Chewable Tablet (Baby Aspirin Ch (04/07/19 19:45) Metoprolol Succinate (Xl) Tab (Toprol Xl (04/07/19 20:00) Enoxaparin Injection (Lovenox Injection) (04/07/19 20:00) Clopidogrel Tablet (Plavix Tablet) (04/07/19 20:00) Medications Given in ED Current Medications Medications Dose Ordered Sig/Marta Route Start Time Stop Time Status Last Admin Dose Admin Aspirin 324 mg ONCE ONCE PO 04/07/19 19:45 04/07/19 19:46 DC 04/07/19 19:47 324 MG Hyoscyamine Sulfate 0.25 mg ONCE ONCE SL 04/07/19 17:30 04/07/19 17:31 DC 04/07/19 17:40 0.25 MG Iohexol 100 ml ONCE ONCE IV 04/07/19 18:00 04/07/19 18:19 DC 04/07/19 18:16 100 ML Ketorolac Tromethamine 30 mg ONCE ONCE IVP 04/07/19 17:30 04/07/19 17:31 DC 04/07/19 17:40 30 MG Lactated Ringer's 1,000 ml @ 0 mls/hr Q0M ONCE IV 04/07/19 17:27 04/07/19 17:30 DC 04/07/19 17:40 0 MLS/HR Pantoprazole 40 mg ONCE ONCE IV 04/07/19 17:30 04/07/19 17:31 DC 12/1/19 17:40 40 MG Sodium Chloride 100 ml ONCE ONCE IV 04/07/19 18:00 04/07/19 18:19 DC 04/07/19 18:17 80 ML Vital Signs/I&O 04/07/19 17:16 Temp 36.5 Pulse 75 Resp 14 B/P (MAP) 157/98 (117) Pulse Ox 99 O2 Delivery Room Air Progress Progress Note : Progress Note GIVEN PROTONIX, LEVSIN, TORADOL WITH RELIEF OF PAIN PRIOR TO ADMIT, STATES PAIN IS STARTING TO FEEL LIKE A "GNAWING" IN EPIGASTRIC AREA PT ALSO STATES PRIOR TO ADMIT, THAT SHE HAS BEEN UNDER MUCH EMOTIONAL STRESS RECENTLY DUE TO A RECENT BREAK UP FROM HER LONGTIME MALE S.O. Initial ECG Impression Date: Apr 07, 2019 Initial ECG Impression Time: 17:48 Initial ECG Rate: 71 Initial ECG Rhythm: Normal Sinus Initial ECG Impression: Normal Initial ECG Comparisson: No Previous ECG Available Diagnostic Imaging Comments CXR--NO ACUTE PROCESS, PER RADIOLOGIST REPORT CT CHEST ANGIOGRAM/ABDOMEN-PELVIS--NO ACUTE PROCESS, OTHER NON-ACUTE FINDINGS--4 MM RIGHT AND LEFT PULMONARY NODULES, STABLE/UNCHANGED LIVER LESION--PER RADIOLOGIST REPORT AT 1939 Reviewed: Reviewed by Me Departure Communication (Admissions) 1939/1940--PAGED/SPOKE WITH DR. RILEY. ACCEPTS PT FOR ADMIT. ORDERS NOTED. 1944--SPOKE WITH DR. COCHRAN FOR MEDICINE CONSULT Impression Primary Impression: NSTEMI (non-ST elevated myocardial infarction) Additional Impression: HTN (hypertension) Disposition: ADMITTED INPATIENT Condition: Improved Admissions Decision to Admit Reason: Admit from ER (General) Decision to Admit/Date: Apr 07, 2019 Time/Decision to Admit Time: 19:45 Departure-Patient Inst. Referrals: PROSPER COCHRAN DO (PCP/Family) Primary Care Physician ROBYN KHAN DO Apr 07, 2019 17:37 POS
[2019-04-07 17:40] LABS: BASOPHILS % (AUTO) 1 % (0-10); EOSINOPHILS # (AUTO) 0.3 10^3/uL (0.0-0.3); EOSINOPHILS % (AUTO) 4 % (0-10); HEMATOCRIT 39 % (35-52); HEMOGLOBIN 13.2 G/DL (11.5-16.0); LYMPHOCYTES # (AUTO) 2.9 X 10^3 (1.0-4.0); LYMPHOCYTES % (AUTO) 40 % (12-44); MEAN CORPUSCULAR HEMOGLOBIN 32 PG (25-34); MEAN CORPUSCULAR HGB CONC 34 G/DL (32-36); MEAN CORPUSCULAR VOLUME 94 FL (80-99); MEAN PLATELET VOLUME 9.8 FL (7.4-10.4); MONOCYTES # (AUTO) 0.6 X 10^3 (0.0-1.0); MONOCYTES % (AUTO) 8 % (0-12); NEUTROPHILS # (AUTO) 3.5 X 10^3 (1.8-7.8); NEUTROPHILS % (AUTO) 48 % (42-75); PLATELET COUNT 272 10^3/uL (130-400); RED CELL DISTRIBUTION WIDTH 13.5 % (10.0-14.5); WHITE BLOOD COUNT 7.2 10^3/uL (4.3-11.0)
[2019-04-07 17:49] LABS: INR 0.9 (0.8-1.4); PROTHROMBIN TIME PATIENT 12.8 SEC (12.2-14.7)
[2019-04-07 17:58] LABS: BUN/CREATININE RATIO 10; CARBON DIOXIDE 24 MMOL/L (21-32); CHLORIDE 104 MMOL/L (98-107); POTASSIUM 3.6 MMOL/L (3.6-5.0); SODIUM 142 MMOL/L (135-145)
[2019-04-07 17:59] LABS: ALANINE AMINOTRANSFERASE 19 U/L (0-55); ALBUMIN 4.4 GM/DL (3.2-4.5); ALKALINE PHOSPHATASE 62 U/L (40-136); AMYLASE 50 U/L (25-125); BILIRUBIN,TOTAL 0.3 MG/DL (0.1-1.0); CALCIUM 9.2 MG/DL (8.5-10.1); GFR ESTIMATED > 60; GLUCOSE 102 MG/DL (70-105); LIPASE 28 U/L (8-78); MAGNESIUM 1.9 MG/DL (1.6-2.4); TOTAL PROTEIN 7.3 GM/DL (6.4-8.2)
[2019-04-07] MEDS ORDERED: IOHEXOL 350 MG/ML 100 ML (OMNIPAQUE 350) VIAL IV ONE (18:00)
[2019-04-07] MEDS ORDERED: NS 100 ML (IVPB) BAG IV ONE (18:00)
[2019-04-07] MEDS ORDERED: HOLD METFORMIN - RECEIVED CONTRAST 20 ML VIAL IV SCH (18:00)
[2019-04-07 18:07] LABS: BILIRUBIN,URINE NEGATIVE (NEGATIVE); CLARITY,URINE CLEAR; COLOR,URINE YELLOW; GLUCOSE, URINE (UA) NEGATIVE (NEGATIVE); KETONES,URINE NEGATIVE (NEGATIVE); LEUKOCYTE ESTERASE ,URINE NEGATIVE (NEGATIVE); NITRITE,URINE NEGATIVE (NEGATIVE); PH,URINE 7.5 (5-9); PROTEIN,URINE NEGATIVE (NEGATIVE)
[2019-04-07 18:16] LABS: BACTERIA,URINE MODERATE /HPF; RBC,URINE 0-2 /HPF
--- NOTE | 2019-04-07 19:36 | Diagnostic Imaging Report ---
EXAM: CT chest, abdomen and pelvis with intravenous contrast. DATE: April 07, 2019. INDICATION: 68-year-old female, history of upper abdominal pain. History of prior diverticulitis. COMPARISON: CT abdomen and pelvis June 13, 2018. TECHNIQUE: Axial CT images of the level of the chest, abdomen and pelvis were obtained following the intravenous administration of contrast. Coronal and sagittal reformats were obtained and provided. All CT scans use one or more of the following dose optimizing techniques: automated exposure control, MA and/or KvP adjustment based on a patient size and exam type, or iterative reconstruction. FINDINGS: There is a 4 mm noncalcified right lower lobe pulmonary nodule on axial image 83. There is a 4 mm noncalcified left lower lobe pulmonary nodule on axial image 87. There is no lung mass. There is no focal airspace consolidation. There is no pneumothorax. There is no pleural effusion. The central airways are patent. There is no identified pulmonary embolus. The main pulmonary artery is normal in caliber. The heart is not enlarged. There is no pericardial effusion. There are atherosclerotic calcifications. There is no identified abnormally enlarged mediastinal, hilar or axillary lymph node which meets CT size criteria for adenopathy. The liver is normal in size and contour. There is a low-attenuation lesion in the right lobe of the liver on axial image 33 which measures 1.4 cm in size. This is unchanged since at least September 11, 2015 consistent with benign etiology. The main, right and left portal veins are patent. The gallbladder is unremarkable. There is no identified intrahepatic or extrahepatic bowel duct dilation. The main pancreatic duct is not abnormally dilated. Unremarkable appearance of the pancreatic parenchyma. The spleen is normal in size. The adrenal glands are unremarkable. Unremarkable appearance of the renal parenchyma. The urinary collecting systems are not distended. There is no identified renal or ureteral stone. There are pelvic calcifications consistent with phleboliths. The urinary bladder is unremarkable in appearance. There are sutures at the level of the rectosigmoid junction. The intestinal tract is not distended. There is a small hiatal hernia. There is no free intraperitoneal air. There is no drainable fluid collection. There is no free pelvic fluid. There is no identified abnormally enlarged lymph node in the abdomen or pelvis which meets CT size criteria for adenopathy. There are multilevel degenerative changes of the spine. There is no identified acute bony abnormality. IMPRESSION: 1. No identified acute cardiopulmonary abnormality. 2. 4 mm noncalcified right lower lobe and left lower lobe pulmonary nodules. 3. No identified acute abnormality in the abdomen or pelvis. 4. Benign low-attenuation lesion in the liver stable since at least 2015. Dictated by: Dictated on workstation # [id number]
--- NOTE | 2019-04-07 19:43 | Diagnostic Imaging Report ---
EXAMINATION: Abdominal radiographs, acute series. DATE: April 07, 2019. CLINICAL INDICATION: 68-year-old female, upper abdominal pain. COMPARISON: CT abdomen and pelvis June 13, 2018. COMMENTS: Heart size and mediastinal contours are unremarkable. There is no identifiable pneumothorax, pleural effusion, or focal airspace consolidation. There is contrast in urinary collecting systems consistent with recent administration of contrast. There are no gas distended segments of bowel. IMPRESSION: No identified acute abdominal radiographic abnormality. Dictated by: Dictated on workstation # [id number]
[2019-04-07] MEDS ORDERED: ASPIRIN 81 MG CHEW (CHILDREN'S ASA) PO ONE (19:45)
[2019-04-07] MEDS ORDERED: CLOPIDOGREL 300 MG (PLAVIX) TABLET PO ONE (20:00)
[2019-04-07] MEDS ORDERED: meTOproloL SUCCINATE 50 MG (TOPROL XL) TAB PO SCH (20:00)
[2019-04-07] MEDS ORDERED: ENOXAPARIN 80 MG/0.8 ML (LOVENOX) SYR SC ONE (20:00)
--- NOTE | 2019-04-07 21:17 | NUR ---
DARONFAUSTINO Kortney admitted to room CU4-1, with an admitting diagnosis of NSTEMI, on 04/07/19 from [facility] ED via wheelchair, accompanied by friend.FAUSTINO NERI introduced to surroundings, call light, bed controls, phone, TV, temperature control, lights, meal times, smoking policy, visitor policy, side rail policy, bathrooms and showers. Patient Rights given to patient in the handbook. FAUSTINO NERI verbalizes understanding that [facility] is not responsible for the loss or damage to any personal effects or valuables that are kept in the patients possession during their hospitalization. The following Patient Care Plans were discussed with the patient: Discharge Planning, pain,activity, and diet. FAUSTINO NERI verbalizes understanding of Interdisciplinary Patient Education. Patient and/or family were informed about the Rapid Response Team and its purpose.
[2019-04-07 21:20] VITALS: BP 143/87
[2019-04-07 21:30] VITALS: BP 146/86
[2019-04-07 21:36] VITALS: BP 143/87
[2019-04-07 21:45] VITALS: BP 142/93
[2019-04-07 22:00] VITALS: BP 136/72
[2019-04-07] MEDS ORDERED: ONDANSETRON 4 MG/2 ML (SDV) Z0FRAN IV PRN (22:30)
[2019-04-07] MEDS ORDERED: morphine INJ 4 MG/ML 1 ML (VIAL/SYRINGE) IV PRN (22:30)
[2019-04-07 23:00] VITALS: BP 127/71
[2019-04-08] VITALS (10 sets, daily range): BP systolic 110–135; BP diastolic 61–90
[2019-04-08 04:45] LABS: BASOPHILS # (AUTO) 0.1 10^3/uL (0.0-0.1); BASOPHILS % (AUTO) 1 % (0-10); EOSINOPHILS # (AUTO) 0.3 10^3/uL (0.0-0.3); EOSINOPHILS % (AUTO) 4 % (0-10); HEMATOCRIT 35 % (35-52); HEMOGLOBIN 11.5 G/DL (11.5-16.0); LYMPHOCYTES # (AUTO) 2.8 X 10^3 (1.0-4.0); LYMPHOCYTES % (AUTO) 44 % (12-44); MEAN CORPUSCULAR HEMOGLOBIN 31 PG (25-34); MEAN CORPUSCULAR HGB CONC 33 G/DL (32-36); MEAN CORPUSCULAR VOLUME 95 FL (80-99); MEAN PLATELET VOLUME 9.8 FL (7.4-10.4); MONOCYTES # (AUTO) 0.4 X 10^3 (0.0-1.0); MONOCYTES % (AUTO) 7 % (0-12); NEUTROPHILS # (AUTO) 2.8 X 10^3 (1.8-7.8); NEUTROPHILS % (AUTO) 44 % (42-75); PLATELET COUNT 238 10^3/uL (130-400); RED CELL DISTRIBUTION WIDTH 13.4 % (10.0-14.5); WHITE BLOOD COUNT 6.3 10^3/uL (4.3-11.0)
[2019-04-08 05:08] LABS: ALANINE AMINOTRANSFERASE 14 U/L (0-55); ALBUMIN 3.6 GM/DL (3.2-4.5); ALKALINE PHOSPHATASE 50 U/L (40-136); BILIRUBIN,TOTAL 0.6 MG/DL (0.1-1.0); BUN/CREATININE RATIO 13; CALCIUM 8.3 MG/DL (8.5-10.1); CARBON DIOXIDE 24 MMOL/L (21-32); CHLORIDE 107 MMOL/L (98-107); CHOLESTEROL 211 MG/DL (< 200); CREATININE SERUM 0.64 MG/DL (0.60-1.30); GFR ESTIMATED > 60; GLUCOSE 85 MG/DL (70-105); HDL CHOLESTEROL 67 MG/DL (40-60); POTASSIUM 3.4 MMOL/L (3.6-5.0); SODIUM 140 MMOL/L (135-145); TOTAL PROTEIN 5.9 GM/DL (6.4-8.2); TRIGLYCERIDES 50 MG/DL (<150); VLDL CHOLESTEROL 10 MG/DL (5-40)
[2019-04-08] MEDS ORDERED: FLU QUADRIvalent (5+ YOA) 2019-2020 (AFLURIA) 0.5 ML IM ONE (07:15)
[2019-04-08] MEDS: ASPIRIN E.C. 81 MG (ECOTRIN) TAB PO SCH (08:15)
[2019-04-08] MEDS: PANTOPRAZOLE 40 MG (PROTONIX) VIAL IV SCH (08:15)
[2019-04-08] MEDS: meTOproloL SUCCINATE 50 MG (TOPROL XL) TAB PO SCH (08:15)
--- NOTE | 2019-04-08 08:55 | Consultation-Cardiology ---
HPI-Cardiology Cardiology Consultation: Date of Consultation 04/08/19 Time Seen by a Provider: 08:25 Date of Admission 04-07-19 Attending Physician Silver Holly MD [facility] Admitting Physician Eliana Toro DO Consulting Physician Silver Holly MD HPI: Chief Complaint: NSTEMI Ms. Neri is a 68 year old female admitted to ICU 4 from the ED with c/o epigastric discomfort. She reports she has had intermit epigastric discomfort for several years which she describes as a tightness, pressure. She states activity does not typically affect the discomfort. However, over the last month the episodes of discomfort have become more frequent and intense. She states yesterday she began to have the epigastric/lower chest discomfort prior to lunch. She states she ate lunch, typically food improves the discomfort, but it persisted. She states around 4 p.m. she walked around 6 blocks back home from her friends house and the discomfort was "excruciating". She states she could not get comfortable. She tried lying down and ended up having to lie in a position to get any relief. She denies any SOB, palpitations, syncope or near syncope. She denies any n/v/d. She denies any fever or chills. She states in the ED she received "pain medication" in her IV which did provide relief, however the discomfort has returned this morning, although not as severe as yesterday. She states she feels the discomfort is at its usual baseline. Review of Systems-Cardiology Review of Systems Constitutional: No chills, No fever, No malaise Eyes: No vision change Ears/Nose/Throat: No epistaxis, No nasal drainage, No recent hearing loss Respiratory: As described under HPI Cardiovascular: As described under HPI Gastrointestinal: No constipation, No diarrhea, No nausea, No vomiting Genitourinary: No dysuria, No hematuria Musculoskeletal: no symptoms reported Skin: No rash on exposed areas, No ulcerations on exposed areas Psychiatric/Neurological: No seizure, No focal weakness, No syncope Hematologic: No bleeding abnormalities GCK-Xeprqq-Oygzpr Hx Patient Social History Alcohol Use: Occasionally Uses Recreational Drug Use: No Smoking Status: Never a Smoker Recent Foreign Travel: No Recent Infectious Disease Expo: No Immunizations Up To Date Tetanus Booster (TDap): Unknown Date of Pneumonia Vaccine: Jun 01, 2010 Past Medical History PMH As described under Assessment. Family Medical History Family Medical History: She reports she knows very little about her family health history, although she does not believe any of her family members had CAD or CVA. Family History: Unknown family medical history 19 FATHER 19 MOTHER G8 BROTHER G8 SISTER Allergies and Home Medications Allergies Coded Allergies: Sulfa (Sulfonamide Antibiotics) (Verified Allergy, Unknown, FACE SWELLING/ SECRETIONS, 10/13/15) Home Medications Acyclovir 400 Mg Tablet, 400 MG PO BID, (Reported) Amlodipine Besylate 5 Mg Tablet, 5 MG PO DAILY, (Reported) LAST FILLED #90 11-12-18 Ascorbate Calcium 500 Mg Tablet, 500 MG PO DAILY, (Reported) Bacillus Coagulans 1 Each Tab.chew, 1 TAB.CHEW PO DAILY, (Reported) Biotin 1,000 Mcg Tablet, 1,000 MCG PO DAILY, (Reported) Calcium Carbonate/Vitamin D3 1 Each Tablet, 1 TAB PO DAILY, (Reported) Estradiol 0.5 Mg Tablet, 0.5 MG VG Tu, (Reported) Ginkgo Biloba Icard Extract 60 Mg Capsule, 60 MG PO DAILY, (Reported) Multivitamin 1 Each Tablet, 1 TAB PO DAILY, (Reported) [place]-3 Fatty Acids 1,000 Mg Capsule, 1,000 MG PO DAILY, (Reported) Ubidecarenone 100 Mg Capsule, 100 MG PO DAILY, (Reported) Physical Exam-Cardiology Physical Exam Vital Signs/I&O 04/08/19 04/08/19 04/08/19 04/09/19 20:00 20:15 21:00 00:00 Temp 36.2 36.6 Pulse 67 Resp 16 B/P (MAP) 109/63 (78) Pulse Ox 96 96 99 O2 Delivery Room Air Room Air Room Air 04/09/19 04/09/19 04/09/19 04/09/19 00:00 01:00 04:00 04:00 Temp 36.8 Pulse 61 66 Resp 18 B/P (MAP) 126/85 (99) Pulse Ox 96 66 96 O2 Delivery Room Air Room Air 04/09/19 00:00 Intake Total 500 ml Balance 500 ml Capillary Refill : Less Than 3 Seconds Constitutional: AAO x 3, well-developed, well-nourished HEENT: PERRL, hearing is well preserved, oral hygience is good Neck: No carotid bruit; carotid pulses are 2 + bilaterally Respiratory: No accessory muscle use, No respiratory distress; chest expansion is symmetric, chest is bilaterally symmetric, lungs clear to auscultation Cardiovascular: regular rate-rhythm; No JVD; S1 and S2 Gastrointestinal: tender (epigastric to RUQ with palpation), soft, round Rectal: deferred Extremities: no lower extremity edema bilateral Neurologic/Psychiatric: oriented x 3, grossly intact Skin: No rash on exposed areas, No ulcerations on exposed areas Data Review Labs Microbiology 04/07/19 Urine Culture - Final, Complete NO GROWTH Radiology NAME: FAUSTINO NERI [facility] REC#: [id number] PT STATUS: REG ER : 1950 PHYSICIAN: ROBYN KHAN DO ADMIT DATE: 04/07/19/ER Signed Date of Exam:04/07/19 ACUTE ABD SERIES EXAMINATION: Abdominal radiographs, acute series. DATE: April 07, 2019. CLINICAL INDICATION: 68-year-old female, upper abdominal pain. COMPARISON: CT abdomen and pelvis June 13, 2018. COMMENTS: Heart size and mediastinal contours are unremarkable. There is no identifiable pneumothorax, pleural effusion, or focal airspace consolidation. There is contrast in urinary collecting systems consistent with recent administration of contrast. There are no gas distended segments of bowel. IMPRESSION: No identified acute abdominal radiographic abnormality. Dictated by: Dictated on workstation # [id number] Dict: 04/07/191855 Trans: 04/07/19[address] [facility] [id number] Interpreted by: OSWALD LACY MD Electronically signed by: OSWALD LACY MD 04/07/191953 NAME: FAUSTINO NERI [facility] REC#: [id number] PT STATUS: REG ER : 1950 PHYSICIAN: ROBYN KHAN DO ADMIT DATE: 04/07/19/ER Signed Date of Exam:04/07/19 CT ELISABET CHEST/NOANG ABD-PELV W EXAM: CT chest, abdomen and pelvis with intravenous contrast. DATE: April 07, 2019. INDICATION: 68-year-old female, history of upper abdominal pain. History of prior diverticulitis. COMPARISON: CT abdomen and pelvis June 13, 2018. TECHNIQUE: Axial CT images of the level of the chest, abdomen and pelvis were obtained following the intravenous administration of contrast. Coronal and sagittal reformats were obtained and provided. All CT scans use one or more of the following dose optimizing techniques: automated exposure control, MA and/or KvP adjustment based on a patient size and exam type, or iterative reconstruction. FINDINGS: There is a 4 mm noncalcified right lower lobe pulmonary nodule on axial image 83. There is a 4 mm noncalcified left lower lobe pulmonary nodule on axial image 87. There is no lung mass. There is no focal airspace consolidation. There is no pneumothorax. There is no pleural effusion. The central airways are patent. There is no identified pulmonary embolus. The main pulmonary artery is normal in caliber. The heart is not enlarged. There is no pericardial effusion. There are atherosclerotic calcifications. There is no identified abnormally enlarged mediastinal, hilar or axillary lymph node which meets CT size criteria for adenopathy. The liver is normal in size and contour. There is a low-attenuation lesion in the right lobe of the liver on axial image 33 which measures 1.4 cm in size. This is unchanged since at least September 11, 2015 consistent with benign etiology. The main, right and left portal veins are patent. The gallbladder is unremarkable. There is no identified intrahepatic or extrahepatic bowel duct dilation. The main pancreatic duct is not abnormally dilated. Unremarkable appearance of the pancreatic parenchyma. The spleen is normal in size. The adrenal glands are unremarkable. Unremarkable appearance of the renal parenchyma. The urinary collecting systems are not distended. There is no identified renal or ureteral stone. There are pelvic calcifications consistent with phleboliths. The urinary bladder is unremarkable in appearance. There are sutures at the level of the rectosigmoid junction. The intestinal tract is not distended. There is a small hiatal hernia. There is no free intraperitoneal air. There is no drainable fluid collection. There is no free pelvic fluid. There is no identified abnormally enlarged lymph node in the abdomen or pelvis which meets CT size criteria for adenopathy. There are multilevel degenerative changes of the spine. There is no identified acute bony abnormality. IMPRESSION: 1. No identified acute cardiopulmonary abnormality. 2. 4 mm noncalcified right lower lobe and left lower lobe pulmonary nodules. 3. No identified acute abnormality in the abdomen or pelvis. 4. Benign low-attenuation lesion in the liver stable since at least 2015. Dictated by: Dictated on workstation # [id number] Dict: 04/07/191842 Trans: 04/07/19[address] [facility] [id number] Interpreted by: OSWALD LACY MD Electronically signed by: OSWALD LACY MD 04/07/191953 ECG Impression ECG Initial ECG Rhythm: Normal Sinus A/P-Cardiology Assessment/Admission Diagnosis NSTEMI RUQ/Epigastric discomfort of undetermined etiology Possible UTI - medical services managing MPI by Dr. Escamilla October 2017 showed Breast attenuation affecting the quality of the images with mild ischemia at the basal to mid anterior wall, which could be related to the underlying breast attenuation. Normal left ventricular size with normal contractility. Calculated ejection fraction 69%. Echo by Dr. Escamilla September 2017 showed LVEF 55-65%. Grade 1 diastolic dysfunction. Mild MR. PASP 35 mmHg. Mild TR. HTN H/O hiatal hernia/Huerta's esophagitis H/O sigmoid colectomy by Dr. Masterson approx 3 years ago d/t diverticulitis (per pt report) Clinical Quality Measures DVT/VTE Risk/Contraindication: Risk Factor Score Per Nursin RFS Level Per Nursing on Admit: 2=Moderate MISSAEL GOMES Apr 08, 2019 08:55 POS
[2019-04-08] MEDS ORDERED: ENOXAPARIN 80 MG/0.8 ML (LOVENOX) SYR SC SCH (09:00)
[2019-04-08] MEDS ORDERED: CLOPIDOGREL 75 MG (PLAVIX) TABLET PO SCH (09:00)
[2019-04-08] MEDS ORDERED: ESTR0.5T VG (09:03)
[2019-04-08] MEDS ORDERED: UBID100C44 PO (09:03)
[2019-04-08] MEDS ORDERED: BACI1TAB3 PO (09:03)
[2019-04-08] MEDS ORDERED: OMEG10005 PO (09:03)
[2019-04-08] MEDS ORDERED: ACYC400T PO (09:03)
--- NOTE | 2019-04-08 09:05 | NUR ---
SPOKE WITH THE PATIENT ABOUT HER MEDICATIONS. SHE LISTED MEDS. I COMPARED THE PRESCRIPTIONS TO THE EXT MED HX. I NOTED THE PAST DUE FILL DATE ON HER AMLODIPINE AND VERIFIED IT WITH LAURO HOWEVER SHE STATES SHE DOES NOT MISS A DOSE OF THAT MED AND THINKS JENAES FILLS IF EARLY SOMETIMES AND SHE HAD A SUPPLY ON HAND AT HOME. OTC MEDS: VITAMIN C DAILY PROBIOTIC DAILY BIOTIN DAILY CALCIUM +D DAILY GINKGO BILOBA DAILY MTV DAILY OMEGA 3 DAILY CO Q 10 DAILY
--- NOTE | 2019-04-08 09:46 | History & Physical-Hospitalist ---
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 She did undergo a stress test relatively recent but that was deemed negative for reversible ischemia Cardiac catheterization will be performed by Dr. Holly and I did confer with him. Source: patient, RN/MD Exam Limitations: no limitations Date Seen 04/08/19 Time Seen by a Provider: 09:30 Attending Physician Silver Holly MD [facility] PCP Eliana Cochran DO Referring Physician Date of Admission Apr 07, 2019 at 19:45 Home Medications & Allergies Home Medications Reviewed patient Home Medication Reconciliation performed by pharmacy medication reconciliations software support technician and/or nursing. Patients Allergies have been reviewed. Allergies Allergies Coded Allergies Sulfa (Sulfonamide Antibiotics) (Verified Allergy, Unknown, FACE SWELLING/ SECRETIONS, 10/13/15) Past Qxnxtbt-Ywcnca-Kvsoel Hx Past Med/Social Hx: Reviewed Nursing Past Med/Soc Hx, Reviewed and Corrections made Patient Social History Marrital Status: Employed/Student: retired Alcohol Use: Occasionally Uses Recreational Drug Use: No Smoking Status: Never a Smoker Recent Foreign Travel: No Contact w/other who traveled: No Recent Hopitalizations: No Recent Infectious Disease Expo: No Immunizations Up To Date Tetanus Booster (TDap): Unknown Pediatric: Yes Date of Pneumonia Vaccine: Jun 01, 2010 Seasonal Allergies Seasonal Allergies: No Past Medical History Surgeries: Abdominal, Bowel Surgery, Hysterectomy, Oophorectomy Currently Using CPAP: No Currently Using BIPAP: No Cardiac: High Cholesterol, Hypertension Reproductive: No Sexually Transmitted Disease: No HIV/AIDS: No Gastrointestinal: Gastroesophageal Reflux, Huerta's Esophagus, Chronic Constipation, Diverticulosis, Hiatal Hernia Psychosocial: Anxiety History of Blood Disorders: No Adverse Reaction to Blood [place]: No Family History Unknown family medical history 19 FATHER 19 MOTHER G8 BROTHER G8 SISTER No Pertinent Family Hx Review of Systems Constitutional: see HPI Cardiovascular: chest pain Gastrointestinal: abdominal pain (LUQ) Physical Exam Physical Exam Vital Signs Vital Signs - First Documented 04/07/19 17:16 Temp 36.5 Pulse 75 Resp 14 B/P (MAP) 157/98 (117) Pulse Ox 99 O2 Delivery Room Air Capillary Refill : Less Than 3 Seconds Height, Weight, BMI Height: 5'5.00" Weight: 137lbs. 0.0oz. [id number]; 26.97 BMI Method:Stated General Appearance: No Apparent Distress Eyes: Right Eye Normal Inspection, Right Eye PERRL HEENT: PERRL/EOMI, TMs Normal, Normal ENT Inspection, Pharynx Normal, Moist Mucous Membranes Neck: Full Range of Motion, Normal Inspection, Non Tender Respiratory: Chest Non Tender, Lungs Clear, Normal Breath Sounds, No Accessory Muscle Use, No Respiratory Distress Cardiovascular: Regular Rate, Rhythm, No Edema, No Gallop, No JVD, No Murmur, Normal Peripheral Pulses Gastrointestinal: Normal Bowel Sounds, No Organomegaly, No Pulsatile Mass, Non Tender, Soft Back: Normal Inspection, No CVA Tenderness, No Vertebral Tenderness Extremity: Normal Capillary Refill, Normal Inspection, Normal Range of Motion, Non Tender, No Calf Tenderness, No Pedal Edema Neurologic/Psychiatric: Alert, Oriented x3, No Motor/Sensory Deficits, Normal Mood/Affect Skin: Normal Color, Warm/Dry Lymphatic: No Adenopathy Results Results/Procedures Labs Laboratory Tests 04/07/19 17:24 04/08/19 04:30 Patient resulted labs reviewed. Assessment/Plan Admission Diagnosis Assessment: NSTEMI Chest pain HTN HLP Plan: Dr Holly appreciated Admission Status: Inpatient Order (span 2 midnights) Reason for Inpatient Admission: NSTEMI Diagnosis/Problems Diagnosis/Problems (1) NSTEMI (non-ST elevated myocardial infarction) Status: Acute (2) HTN (hypertension) Status: Acute (3) Hypertension Status: Chronic (4) Hypercholesteremia Status: Chronic Clinical Quality Measures DVT/VTE Risk/Contraindication: Risk Factor Score Per Nursin RFS Level Per Nursing on Admit: 2=Moderate ELIANA COCHRAN DO Apr 08, 2019 09:46 POS
[2019-04-08] MEDS ORDERED: LIDOCAINE 1% INJ 20 ML 20 ML VIAL ONE (10:03)
[2019-04-08] MEDS ORDERED: HEParin (CATH LAB) 2,000 ML IV ONE (10:03)
[2019-04-08] MEDS: NS IV 1000 ML 1,000 ML IV SCH (10:43)
[2019-04-08] MEDS ORDERED: fentaNYL INJECTION 100 MCG/2 ML AMP ONE (11:44)
[2019-04-08] MEDS ORDERED: MIDAZOLAM 5 MG/5 ML (VERSED) VIAL ONE (11:44)
[2019-04-08] MEDS ORDERED: MIDAZOLAM 2 MG/2 ML (VERSED) VIAL ONE (12:34)
[2019-04-08] MEDS ORDERED: NS IV 1000 ML 1,000 ML IV SCH (13:00)
[2019-04-08] MEDS ORDERED: PATIENT MAY USE OWN MEDS, ALL PO SCH (13:00)
--- NOTE | 2019-04-08 13:00 | Consultation-Cardiology ---
HPI-Cardiology Cardiology Consultation: Date of Consultation 04/08/19 Time Seen by a Provider: 09:15 Date of Admission Attending Physician Silver Holly MD Facp Fac Ccds Admitting Physician Eliana Toro DO Consulting Physician SILVER HOLLY MD, MA, FACP, FACC, [facility], [facility] HPI: Chief Complaint: CC: Chest/epigastric pain HPI Ms. Larson is a 68 year old female admitted to ICU 4 from the ED with c/o epigastric discomfort. She reports she has had intermittent epigastric discomfort for several years which she describes as a tightness, pressure. She states activity does not typically affect the discomfort. However, over the last month the episodes of discomfort have become more frequent and intense. She states yesterday she began to have the epigastric/lower chest discomfort prior to lunch. She states she ate lunch, typically food improves the discomfort, but it persisted. She states around 4 p.m. she walked around 6 blocks back home from her friends house and the discomfort was "excruciating". She states she could not get comfortable. She tried lying down and ended up having to lie in a position to get any relief. She denies any SOB, palpitations, syncope or near syncope. She denies any n/v/d. She denies any fever or chills. She states in the ED she received "pain medication" in her IV which did provide relief, however the discomfort has returned this morning, although not as severe as yesterday. She states she feels the discomfort is at its usual baseline. Review of Systems-Cardiology Review of Systems Constitutional: No chills, No fever, No malaise Eyes: No vision change Ears/Nose/Throat: No epistaxis, No nasal drainage, No recent hearing loss Respiratory: As described under HPI Cardiovascular: As described under HPI Gastrointestinal: No constipation, No diarrhea, No nausea, No vomiting Genitourinary: No dysuria, No hematuria Musculoskeletal: no symptoms reported Skin: No rash on exposed areas, No ulcerations on exposed areas Psychiatric/Neurological: No seizure, No focal weakness, No syncope Hematologic: No bleeding abnormalities YCL-Fdkgdp-Ulyqal Hx Patient Social History Alcohol Use: Occasionally Uses Recreational Drug Use: No Smoking Status: Never a Smoker Recent Foreign Travel: No Recent Infectious Disease Expo: No Immunizations Up To Date Tetanus Booster (TDap): Unknown Date of Pneumonia Vaccine: Jun 01, 2010 Past Medical History PMH As described under Assessment. Family Medical History Family Medical History: She reports she knows very little about her family health history, although she does not believe any of her family members had CAD or CVA. Family History: Unknown family medical history 19 FATHER 19 MOTHER G8 BROTHER G8 SISTER Allergies and Home Medications Allergies Coded Allergies: Sulfa (Sulfonamide Antibiotics) (Verified Allergy, Unknown, FACE SWELLING/ SECRETIONS, 10/13/15) Home Medications Acyclovir 400 Mg Tablet, 400 MG PO BID, (Reported) Amlodipine Besylate 5 Mg Tablet, 5 MG PO DAILY, (Reported) LAST FILLED #90 11-12-18 Ascorbate Calcium 500 Mg Tablet, 500 MG PO DAILY, (Reported) Bacillus Coagulans 1 Each Tab.chew, 1 TAB.CHEW PO DAILY, (Reported) Biotin 1,000 Mcg Tablet, 1,000 MCG PO DAILY, (Reported) Calcium Carbonate/Vitamin D3 1 Each Tablet, 1 TAB PO DAILY, (Reported) Estradiol 0.5 Mg Tablet, 0.5 MG VG Tu, (Reported) Ginkgo Biloba [place] Extract 60 Mg Capsule, 60 MG PO DAILY, (Reported) Multivitamin 1 Each Tablet, 1 TAB PO DAILY, (Reported) [place]-3 Fatty Acids 1,000 Mg Capsule, 1,000 MG PO DAILY, (Reported) Ubidecarenone 100 Mg Capsule, 100 MG PO DAILY, (Reported) Patient Home Medication List Home Medication List Reviewed: Yes Physical Exam-Cardiology Physical Exam Vital Signs/I&O 04/08/19 04/08/19 04/08/19 04/08/19 01:00 01:00 02:00 03:00 Pulse 60 60 57 58 Resp 10 13 21 B/P (MAP) 121/75 (90) 117/88 (98) 110/70 (83) Pulse Ox 98 96 97 O2 Delivery Room Air Room Air Room Air 04/08/19 04/08/19 04/08/19 04/08/19 03:45 04:00 05:00 06:00 Pulse 57 63 56 Resp 14 9 12 B/P (MAP) 117/68 (84) 124/66 (85) 119/63 (81) Pulse Ox 96 96 96 96 O2 Delivery Room Air Room Air Room Air Room Air 04/08/19 04/08/19 04/08/19 04/08/19 07:00 08:00 08:00 09:00 Pulse 63 63 Resp 13 B/P (MAP) 121/78 (92) Pulse Ox 98 96 96 O2 Delivery Room Air Room Air Room Air 04/08/19 12:00 Pulse 64 Resp 11 B/P (MAP) 135/90 (105) Pulse Ox 98 O2 Delivery Room Air 04/07/19 23:59 Intake Total 1000 ml Output Total 1000 ml Balance 0 ml Capillary Refill : Less Than 3 Seconds Constitutional: AAO x 3, well-developed, well-nourished HEENT: PERRL, hearing is well preserved, oral hygience is good Neck: No carotid bruit; carotid pulses are 2 + bilaterally Respiratory: No accessory muscle use, No respiratory distress; chest expansion is symmetric, chest is bilaterally symmetric, lungs clear to auscultation Cardiovascular: regular rate-rhythm; No JVD; S1 and S2 Gastrointestinal: tender (epigastric to RUQ with palpation), soft, round Rectal: deferred Extremities: no lower extremity edema bilateral Neurologic/Psychiatric: oriented x 3, grossly intact Skin: No rash on exposed areas, No ulcerations on exposed areas Data Review Labs Laboratory Tests 04/07/19 17:24: White Blood Count 7.2, Red Blood Count 4.12L, Hemoglobin 13.2, Hematocrit 39, Mean Corpuscular Volume 94, Mean Corpuscular Hemoglobin 32, Mean Corpuscular Hemoglobin Concent 34, Red Cell Distribution Width 13.5, Platelet Count 272, Mean Platelet Volume 9.8, Neutrophils (%) (Auto) 48, Lymphocytes (%) (Auto) 40, Monocytes (%) (Auto) 8, Eosinophils (%) (Auto) 4, Basophils (%) (Auto) 1, Neutrophils # (Auto) 3.5, Lymphocytes # (Auto) 2.9, Monocytes # (Auto) 0.6, Eosinophils # (Auto) 0.3, Basophils # (Auto) 0.0, Prothrombin Time 12.8, INR Comment 0.9, Activated Partial Thromboplast Time 26, Sodium Level 142, Potassium Level 3.6, Chloride Level 104, Carbon Dioxide Level 24, Anion Gap 14, Blood Urea Nitrogen 7, Creatinine 0.70, Estimat Glomerular Filtration Rate > 60, BUN/Creatinine Ratio 10, Glucose Level 102, Calcium Level 9.2, Corrected Calcium 8.9, Magnesium Level 1.9, Total Bilirubin 0.3, Aspartate Amino Transf (AST/SGOT) 19, Alanine Aminotransferase (ALT/SGPT) 19, Alkaline Phosphatase 62, Troponin I 0.051H, B-Type Natriuretic Peptide 51.9, Total Protein 7.3, Albumin 4.4, Amylase Level 50, Lipase 28, Serum Alcohol 10 04/07/19 17:58: Urine Color YELLOW, Urine Clarity CLEAR, Urine pH 7.5, Urine Specific [place] 1.020, Urine Protein NEGATIVE, Urine Glucose (UA) NEGATIVE, Urine Ketones NEGATIVE, Urine Nitrite NEGATIVE, Urine Bilirubin NEGATIVE, Urine Urobilinogen 0.2, Urine Leukocyte Esterase NEGATIVE, Urine RBC (Auto) TRACE-I, Urine RBC 0-2, Urine WBC NONE, Urine Crystals NONE, Urine Bacteria MODERATEH, Urine Casts NONE, Urine Mucus NEGATIVE, Urine Culture Indicated YES 04/08/19 00:18: Troponin I 0.032H 04/08/19 04:30: White Blood Count 6.3, Red Blood Count 3.69L, Hemoglobin 11.5, Hematocrit 35, Mean Corpuscular Volume 95, Mean Corpuscular Hemoglobin 31, Mean Corpuscular Hemoglobin Concent 33, Red Cell Distribution Width 13.4, Platelet Count 238, Mean Platelet Volume 9.8, Neutrophils (%) (Auto) 44, Lymphocytes (%) (Auto) 44, Monocytes (%) (Auto) 7, Eosinophils (%) (Auto) 4, Basophils (%) (Auto) 1, Neutrophils # (Auto) 2.8, Lymphocytes # (Auto) 2.8, Monocytes # (Auto) 0.4, Eosinophils # (Auto) 0.3, Basophils # (Auto) 0.1, Sodium Level 140, Potassium Level 3.4L, Chloride Level 107, Carbon Dioxide Level 24, Anion Gap 9, Blood Urea Nitrogen 8, Creatinine 0.64, Estimat Glomerular Filtration Rate > 60, BUN/Creatinine Ratio 13, Glucose Level 85, Calcium Level 8.3L, Corrected Calcium 8.6, Total Bilirubin 0.6, Aspartate Amino Transf (AST/SGOT) 17, Alanine Aminotransferase (ALT/SGPT) 14, Alkaline Phosphatase 50, Troponin I 0.038H, Total Protein 5.9L, Albumin 3.6, Triglycerides Level 50, Cholesterol Level 211H, LDL Cholesterol Direct 139H, VLDL Cholesterol 10, HDL Cholesterol 67H Microbiology 04/07/19 Urine Culture - Preliminary, Resulted A/P-Cardiology Assessment/Admission Diagnosis Epigstric/chest pain with minimal troponin elevation: NSTEMI suspected Possible UTI - medical services managing MPI by Dr. Escamilla October 2017 showed Breast attenuation affecting the quality of the images with mild ischemia at the basal to mid anterior wall, which could be related to the underlying breast attenuation. Normal left ventricular size with normal contractility. Calculated ejection fraction 69%. Echo by Dr. Escamilla September 2017 showed LVEF 55-65%. Grade 1 diastolic dysfunction. Mild MR. PASP 35 mmHg. Mild TR. HTN H/O hiatal hernia/Huerta's esophagitis H/O sigmoid colectomy by Dr. Masterson approx 3 years ago d/t diverticulitis (per pt report) Discussion and Recomendations * Given suspicion of ACS, we recommend card cath with possible cor intervention * I had a long and detailed discussion with her regarding rationale, procedure, risks, benefits, potential complications, and alternatives of cath and possible PCI. She understands and provides informed consent * I also discussed her case with Dr Toro Clinical Quality Measures DVT/VTE Risk/Contraindication: Risk Factor Score Per Nursin RFS Level Per Nursing on Admit: 2=Moderate SILVER HOLLY MD FACP FAC [facility]S Apr 08, 2019 13:00 POS
--- NOTE | 2019-04-08 13:35 | CARDIAC CATHETERIZATION ---
DATE OF SERVICE: 04/08/2019 CARDIAC CATHETERIZATION REPORT The patient is a 68-year-old lady who was hospitalized with epigastric pain. Troponin was minimally elevated, raising suspicion of acute coronary syndrome. Cardiac catheterization was recommended. Informed consent was obtained. DESCRIPTION OF PROCEDURE: She was brought to the cardiac catheterization laboratory in a fasting state. Right groin was prepared and draped in usual sterile fashion. Lidocaine 1% was used for local anesthesia. Modified Seldinger technique was used to advance a 5-[place] sheath in the right femoral artery, 5-[place] JL4 catheter was used for left coronary angiography, 5-[place] JR4 catheter was used for right coronary angiography, 5-[place] pigtail catheter was used for left heart catheterization and left ventricular angiography. Angiography of the right femoral artery was carried out through the sheath at the beginning of the procedure. At the end of the procedure, Mynx was used to achieve hemostasis. She tolerated the procedure well. HEMODYNAMICS: Left ventricular end-diastolic pressure following coronary angiography was 14 mmHg. There was no significant pressure gradient on pullback across the aortic valve. Ascending aortic pressure was 140/72 with a mean of 75 mmHg. CORONARY ANGIOGRAPHY: Left main coronary artery is free of significant disease. Left anterior descending artery has minimal plaque. Right coronary artery is dominant and does not exhibit significant disease. LEFT VENTRICULAR ANGIOGRAPHY: Left ventricular angiography was carried out in the right anterior oblique projection. Global left ventricular systolic function was normal. No regional wall motion abnormality was seen. Left ventricular ejection fraction is 60% to 65%. CONCLUSIONS: 1. Minimal coronary plaque. 2. Normal global left ventricular systolic function with ejection fraction of 60% to 65%. 3. Left ventricular end-diastolic pressure is 14 mmHg. CONCLUSIONS: Based on results of the study, it appears appropriate to continue a conservative approach. Her chest discomfort does not appear to be of coronary origin. Focus of cardiovascular management is on risk factor modification and that was reviewed with her. Job ID: [id number] DocumentID: [id number] Dictated Date: 04/08/2019 13:09:28 Marking Machine Tender Date: 04/08/2019 13:34:27 Dictated By: POWER RILEY MD, MA, FACP, FACC,
[2019-04-08] MEDS ORDERED: KCL 20 MEQ TAB (K-DUR) PO NR (14:00)
--- NOTE | 2019-04-08 18:45 | Consultation - Surgery ---
History of Present Illness History of Present Illness Patient Consulted On(fredy/time) 04/08/19 18:38 Time Seen by Provider: 18:09 History of Present Illness Surgery asked to consult regarding abdominal pain. HPI per Cardiology: Ms. Larson is a 68 year old female admitted to ICU 4 from the ED with c/o epigastric discomfort. She reports she has had intermittent epigastric discomfort for several years which she describes as a tightness, pressure. She states activity does not typically affect the discomfort. However, over the last month the episodes of discomfort have become more frequent and intense. She states yesterday she began to have the epigastric/lower chest discomfort prior to lunch. She states she ate lunch, typically food improves the discomfort, but it persisted. She states around 4 p.m. she walked around 6 blocks back home from her friends house and the discomfort was "excruciating". She states she could not get comfortable. She tried lying down and ended up having to lie in a position to get any relief. She denies any SOB, palpitations, syncope or near syncope. She denies any n/v/d. She denies any fever or chills. She states in the ED she received "pain medication" in her IV which did provide relief, however the discomfort has returned this morning, although not as severe as yesterday. She states she feels the discomfort is at its usual baseline. When I spoke to her tonight she described the pain as "gnawing" and it was the worst it had ever been yesterday. She thinks she has had pain in this area starting about 5 years ago, but not really anything that has bothered her over the past 3 yrs ago. She thinks she has had 2-3 EGD's and the last one was about 3 yrs ago; "they didn't see anything". However, 5 years ago she was told she had Huerta's Esophagus. She states Omeprazole helped 5 yrs ago, but it really hasn't helped lately and thinks the pain is slightly different now. She is not sure if the pain is associated with food and doesn't think certain movements bring it on. It happens at different times of the day. She thinks yesterday she had a little pain when she woke up in the morning, but it didn't get bad until she was eating at [employer]. She had chips and salsa with a Grilled chicken salad. Allergies and Home Medications Allergies Coded Allergies: Sulfa (Sulfonamide Antibiotics) (Verified Allergy, Unknown, FACE SWELLING/ SECRETIONS, 10/13/15) Home Medications Acyclovir 400 Mg Tablet, 400 MG PO BID, (Reported) Amlodipine Besylate 5 Mg Tablet, 5 MG PO DAILY, (Reported) LAST FILLED #90 11-12-18 Ascorbate Calcium 500 Mg Tablet, 500 MG PO DAILY, (Reported) Bacillus Coagulans 1 Each Tab.chew, 1 TAB.CHEW PO DAILY, (Reported) Biotin 1,000 Mcg Tablet, 1,000 MCG PO DAILY, (Reported) Calcium Carbonate/Vitamin D3 1 Each Tablet, 1 TAB PO DAILY, (Reported) Estradiol 0.5 Mg Tablet, 0.5 MG VG Tu, (Reported) Ginkgo Biloba [place] Extract 60 Mg Capsule, 60 MG PO DAILY, (Reported) Multivitamin 1 Each Tablet, 1 TAB PO DAILY, (Reported) [place]-3 Fatty Acids 1,000 Mg Capsule, 1,000 MG PO DAILY, (Reported) Ubidecarenone 100 Mg Capsule, 100 MG PO DAILY, (Reported) Patient Home Medication List Home Medication List Reviewed: Yes Past Qpqtcod-Dyzuts-Xdbjze Hx Patient Social History Alcohol Use: Occasionally Uses Recreational Drug Use: No Smoking Status: Never a Smoker Recent Foreign Travel: No Contact w/Someone Who Travel: No Recent Infectious Disease Expo: No Recent Hopitalizations: No Immunizations Up To Date Tetanus Booster (TDap): Unknown PED Vaccines UTD: Yes Date of Pneumonia Vaccine: Jun 01, 2010 Seasonal Allergies Seasonal Allergies: No Surgeries History of Surgeries: Yes (CYST REMOVED FROM HEAD; UMBILICAL HERNIA; COLON RESECTION FOR DIVERTICULITIS; EGD/COLONOSCOPY) Surgeries: Abdominal, Bowel Surgery, Hysterectomy, Oophorectomy Respiratory History of Respiratory Disorde: No Cardiovascular History of Cardiac Disorders: Yes Cardiac Disorders: High Cholesterol, Hypertension Neurological History of Neurological Disord: No Reproductive System Hx Reproductive Disorders: No Sexually Transmitted Disease: No HIV/AIDS: No Genitourinary History of Genitourinary Disor: No Gastrointestinal History of Gastrointestinal Di: Yes (S/P COLON RESECTION) Gastrointestinal Disorders: Gastroesophageal Reflux, Huerta's Esophagus, Chronic Constipation, Diverticulosis, Hiatal Hernia Musculoskeletal History of Musculoskeletal Dis: No (ARTHRTIS) Endocrine History of Endocrine Disorders: No HEENT History of HEENT Disorders: No Cancer History of Cancer: No Psychosocial History of Psychiatric Problem: Yes Behavioral Health Disorders: Anxiety Integumentary History of Skin or Integumenta: No Blood Transfusions History of Blood Disorders: No Adverse Reaction to a Blood Tr: No Family Medical History Significant Family History: Other Conditions/Hx (She states she was not really close with her family and can't give an accurate Family hx; pt thinks her mother and 2 brothers had ALS. She also thinks her mother, sister and grandmother in their 40's....not sure why.) Family Medial History: Unknown family medical history 19 FATHER 19 MOTHER G8 BROTHER G8 SISTER Review of Systems-General Constitutional: diaphoresis, malaise, weakness EENTM: No blurred vision, No double vision, No mouth pain, No mouth swelling, No epistaxis Respiratory: No cough, No dyspnea on exertion, No hemoptysis, No short of breath Cardiovascular: chest pain; No edema; Hx of Intervention; No syncope Gastrointestinal: abdominal pain; No jaundice, No melena; nausea; No vomiting Genitourinary: No dysuria, No frequency, No hematuria Musculoskeletal: joint pain, joint swelling, muscle stiffness Skin: No change in color, No change in hair/nails Psychiatric/Neurological: Anxiety; Denies Depressed, Denies Seizure, Denies Tremors Other pt denies any hx of abnormal bleeding or bruising Physical Exam-General Problems Physical Exam Vital Signs Vital Signs - First Documented 04/07/19 17:16 Temp 36.5 Pulse 75 Resp 14 B/P (MAP) 157/98 (117) Pulse Ox 99 O2 Delivery Room Air Capillary Refill : Less Than 3 Seconds General Appearance: WD/WN, no apparent distress Eyes: Bilateral Eye PERRL, Bilateral Eye EOMI HEENT: pharynx normal; No scleral icterus (R), No scleral icterus (L) Neck: non-tender, full range of motion, supple, normal inspection Respiratory: chest non-tender, lungs clear, normal breath sounds, no resp iratory distress, no accessory muscle use Cardiovascular: regular rate, rhythm, no edema, no murmur Gastrointestinal: soft, no organomegaly; No distended, No rebound; tenderness (subxiphoid and epigastric), hernia (??small umbilical hernia) Back: no CVA tenderness, no vertebral tenderness Extremities: normal range of motion, non-tender, normal inspection, no pedal edema, no calf tenderness 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, no motor/sensory deficits, alert, normal mood/affect, oriented x 3 Skin: normal color, warm/dry Lymphatic: no adenopathy (neck, axilla or groin) Data Review Labs Laboratory Tests 04/08/19 00:18: Troponin I 0.032H 04/08/19 04:30: Troponin I 0.038H, White Blood Count 6.3, Red Blood Count 3.69L, Hemoglobin 11.5, Hematocrit 35, Mean Corpuscular Volume 95, Mean Corpuscular Hemoglobin 31, Mean Corpuscular Hemoglobin Concent 33, Red Cell Distribution Width 13.4, Platelet Count 238, Mean Platelet Volume 9.8, Neutrophils (%) (Auto) 44, Lymphocytes (%) (Auto) 44, Monocytes (%) (Auto) 7, Eosinophils (%) (Auto) 4, Basophils (%) (Auto) 1, Neutrophils # (Auto) 2.8, Lymphocytes # (Auto) 2.8, Monocytes # (Auto) 0.4, Eosinophils # (Auto) 0.3, Basophils # (Auto) 0.1, Sodium Level 140, Potassium Level 3.4L, Chloride Level 107, Carbon Dioxide Level 24, Anion Gap 9, Blood Urea Nitrogen 8, Creatinine 0.64, Estimat Glomerular Filtration Rate > 60, BUN/Creatinine Ratio 13, Glucose Level 85, Calcium Level 8.3L, Corrected Calcium 8.6, Total Bilirubin 0.6, Aspartate Amino Transf (AST/SGOT) 17, Alanine Aminotransferase (ALT/SGPT) 14, Alkaline Phosphatase 50, Total Protein 5.9L, Albumin 3.6, Triglycerides Level 50, Cholesterol Level 211H, LDL Cholesterol Direct 139H, VLDL Cholesterol 10, HDL Cholesterol 67H Microbiology 04/07/19 Urine Culture - Final, Complete NO GROWTH Assessment/Plan Assessment/Plan Assessment/Plan Epigastric and Sub-xiphoid Pain Pt had CT which did not show any acute processes (when I looked at it the gallbladder was very small, almost constricted). According to the pt, her heart catheterization did not show any cardiac problems. I believe pt would benefit from an US of the Gallbladder, HIDA with EF if it doesn't show anything (I don't think it will) and she needs an EGD. Unfortunately she has eaten so can't have the EGD today and tomorrow Endo is booked until 5 or 6pm. I think if the US does not show anything, she can probably go home and finish work-up as an outpt; she is ok with this. All questions answered to her satisfaction. Clinical Quality Measures DVT/VTE Risk/Contraindication: Risk Factor Score Per Nursin RFS Level Per Nursing on Admit: 2=Moderate URSULA DUMONT DO Apr 08, 2019 18:45 POS
[2019-04-09] VITALS: BP 109/63
[2019-04-09 04:00] VITALS: BP 126/85
[2019-04-09] MEDS: NS IV 1000 ML 1,000 ML IV SCH (07:24)
[2019-04-09 08:00] VITALS: BP 131/73
[2019-04-09] MEDS: PANTOPRAZOLE 40 MG (PROTONIX) VIAL IV SCH (08:48)
[2019-04-09] MEDS: ASPIRIN E.C. 81 MG (ECOTRIN) TAB PO SCH (08:48)
[2019-04-09] MEDS: meTOproloL SUCCINATE 50 MG (TOPROL XL) TAB PO SCH (08:48)
--- NOTE | 2019-04-09 09:23 | Diagnostic Imaging Report ---
INDICATION: Abdominal pain TECHNIQUE: Multiple grayscale sonographic images were obtained of the right upper quadrant of the abdomen. CORRELATION STUDY: CT abdomen 04/07/2019 as well as additional older studies back to 09/22/2009 FINDINGS: LIVER: Liver length 15 cm. Within the right lobe is a rounded hyperechoic area 1.4 x 1.3 cm. This has been demonstrated on prior CT imaging for extended period time. Perhaps probable hemangioma. Additional subtle hypoechoic area left lobe liver 1.3 x 1.7 x 1.0 cm. While somewhat less well visualized, this likely has been present for extended period of time as well. There is normal, hepatopedal direction of flow within the main portal vein. GALLBLADDER: The gallbladder demonstrates no definitive shadowing gallstones. No abnormal gallbladder wall thickening or pericholecystic fluid. COMMON BILE DUCT: Nondilated at 4 mm. PANCREAS: Visualized portions appearing unremarkable. RIGHT KIDNEY: Measures 11.3 x 5.0 x 4.2 cm. Mildly prominent appearance about the renal pelvis. No overt hydronephrosis. AORTA/IVC: Not well visualized. OTHER: None. IMPRESSION: 1. Two hepatic lesions are present. While particularly smaller lesion left lobe is somewhat less well visualized, both areas appear to have been present on previous CT studies favoring a benign process. Dictated by: Dictated on workstation # [id number]
--- NOTE | 2019-04-09 09:48 | Discharge Summary ---
Discharge Summary Hospital Course Was the Problem List Reviewed?: Yes Problems/Dx: (1) NSTEMI (non-ST elevated myocardial infarction) Status: Acute (2) HTN (hypertension) Status: Acute Qualifiers: Qualified Codes: I10 - Essential (primary) hypertension (3) Hypertension Status: Chronic (4) Hypercholesteremia Status: Chronic Hospital Course Date of Admission: Apr 07, 2019 at 19:45 Admission Diagnosis : Family Physician/Provider: Eliana Cochran DO Date of Discharge: 04/09/19 Discharge Diagnosis: Chest pain with elevated troponin but negative cardiac cath, abdominal pain with normal CT scan and Abd USG except liver cysts, HTN Hospital Course: Pt was held overnight due to continued abdominal pain. Dr. Ahumada was consulted. Ultrasound was performed showing no evidence of any gallbladder etiology. May need EGD prior to discharge. Will await for Dr. Ruano's plan. Reassuring cardiac cath results. Labs and Pending Lab Test: Microbiology 04/07/19 Urine Culture - Final, Complete NO GROWTH Home Meds Active Reported Premont-3 (Premont-3 Fatty Acids) 1,000 Mg Capsule 1,000 Mg PO DAILY Co Q-10 (Ubidecarenone) 100 Mg Capsule 100 Mg PO DAILY Probiotic (Bacillus Coagulans) 1 Each Tab.chew 1 Tab.chew PO DAILY Estradiol Tablet (Estradiol) 0.5 Mg Tablet 0.5 Mg VG TU Acyclovir 400 Mg Tablet 400 Mg PO BID Ginkgo Biloba Extract (Ginkgo Biloba [place] Extract) 60 Mg Capsule 60 Mg PO DAILY Calcium 500 + Vit D 200 Caplet (Calcium Carbonate/Vitamin D3) 1 Each Tablet 1 Tab PO DAILY Vitamin C (Ascorbate Calcium) 500 Mg Tablet 500 Mg PO DAILY Biotin 1,000 Mcg Tablet 1,000 Mcg PO DAILY Multivitamins (Multivitamin) 1 Each Tablet 1 Tab PO DAILY Amlodipine Besylate 5 Mg Tablet 5 Mg PO DAILY LAST FILLED #90 11-12-18 Assessment/Pt Instructions Dr Cochran , 04/11/19 Discharge Planning: <30 minutes discharge planning Discharge Instructions Discharge Diet: No Restrictions Pneumonia Vaccine Order Indica: Yes Discharge Physical Examination Vital Signs Vital Signs Date Time Temp Pulse Resp B/P (MAP) Pulse Ox O2 Delivery O2 Flow Rate FiO2 04/09/19 08:00 36.3 64 20 131/73 (92) 97 Room Air General Appearance: No Apparent Distress, WD/WN Respiratory: Lungs Clear Cardiovascular: Regular Rate, Rhythm Neurologic/Psychiatric: Alert, Oriented x3, No Motor/Sensory Deficits, Normal Mood/Affect Allergies: Coded Allergies: Sulfa (Sulfonamide Antibiotics) (Verified Allergy, Unknown, FACE SWELLING/ SECRETIONS, 10/13/15) Discharge Summary Date of Admission Apr 07, 2019 at 19:45 Date of Discharge Discharge Date: Apr 08, 2019 Admission Diagnosis Assessment: NSTEMI Chest pain HTN HLP Plan: Dr Holly appreciated Discharge Diagnosis (1) NSTEMI (non-ST elevated myocardial infarction) Status: Acute (2) HTN (hypertension) Status: Acute Qualifiers: Qualified Codes: I10 - Essential (primary) hypertension (3) Hypertension Status: Chronic (4) Hypercholesteremia Status: Chronic Clinical Quality Measures DVT/VTE Risk/Contraindication: Risk Factor Score Per Nursin RFS Level Per Nursing on Admit: 2=Moderate ELIANA COCHRAN DO Apr 09, 2019 09:48 POS
--- NOTE | 2019-04-09 10:43 | Progress Note - Cardiology ---
Cardiology SOAP Progress Note Subjective: No cp or palp or syncope or shortness of breath or groin discomfort or leg discomfort / discoloration Epigastric discomfort as before No N/V/D Objective: I&O/Vital Signs 04/09/19 04/09/19 04/09/19 04/09/19 00:00 00:00 01:00 04:00 Temp 36.6 36.8 Pulse 67 61 66 Resp 16 18 B/P (MAP) 109/63 (78) 126/85 (99) Pulse Ox 99 96 66 O2 Delivery Room Air Room Air 04/09/19 04/09/19 04/09/19 04:00 07:00 08:00 Temp 36.3 Pulse 60 64 Resp 20 B/P (MAP) 131/73 (92) Pulse Ox 96 97 O2 Delivery Room Air Room Air 04/09/19 00:00 Intake Total 500 ml Balance 500 ml Weight (Pounds): 137 Weight (Ounces): 0.0 Weight (Calculated Kilograms): 62.588361 Constitutional: AAO x 3, well-developed, well-nourished Respiratory: No accessory muscle use, No respiratory distress; chest expansion is symmetric, chest is bilaterally symmetric, lungs clear to auscultation Cardiovascular: regular rate-rhythm; No JVD; S1 and S2 Gastrointestional: tender (epigastric to RUQ with palpation), soft, round Extremities: no lower extremity edema bilateral Neurologic/Psychiatric: oriented x 3, grossly intact Skin: No rash on exposed areas, No ulcerations on exposed areas Results/Procedures: Labs Microbiology 04/07/19 Urine Culture - Final, Complete NO GROWTH Laboratory Tests 04/07/19 17:24 04/08/19 04:30 A/P: Assessment: Epigstric pain, non-cardiac, etiology undetermined Card cath on 04/08/19: minimal coronary plaque, normal global left ventricular systolic function with ejection fraction of 60% to 65%, left ventricular end- diastolic pressure 14 mmHg. Possible UTI - medical services managing Echo by Dr. Escamilla September 2017 showed LVEF 55-65%. Grade 1 diastolic dysfunction. Mild MR. PASP 35 mmHg. Mild TR. HTN H/o hiatal hernia/Huerta's esophagitis H/o sigmoid colectomy by Dr. Masterson approx 3 years ago d/t diverticulitis (per pt report) Plan: * I had a long and detailed discussion with her regarding card cath findings * W/u for noncardiac chest/epigastric pain is with Dr Toro * We recommend continuing ASA 81 daily, if allowable from Dr Toro's standpoint. This is because of minimal cor plaque * Outpt f/u is advised at our office POWER RILEY MD FACP FAC CCDS Apr 09, 2019 10:43 POS
[2019-04-09 12:00] VITALS: BP 129/81
--- NOTE | 2019-04-09 12:56 | Progress Note - Surgery ---
Subjective Time Seen by a Provider: 12:35 Subjective/Events-last exam Pt seen and examined, states she was doing fine but now with eating is getting a little of the pain again. Review of Systems General: No Chills, No Night Sweats Pulmonary: No Dyspnea, No Cough Cardiovascular: No: Palpitations Gastrointestinal: Abdominal Pain; No: Nausea, Vomiting Objective Exam Vital Signs Date Time Temp Pulse Resp B/P (MAP) Pulse Ox O2 Delivery O2 Flow Rate FiO2 04/09/19 12:00 36.7 61 18 129/81 (97) 98 Room Air 04/09/19 09:00 96 Room Air 04/09/19 08:00 36.3 64 20 131/73 (92) 97 Room Air 04/09/19 08:00 96 Room Air 04/09/19 07:00 60 04/09/19 04:00 96 Room Air 04/09/19 04:00 36.8 66 18 126/85 (99) 66 04/09/19 01:00 61 04/09/19 00:00 96 Room Air 04/09/19 00:00 36.6 67 16 109/63 (78) 99 Room Air 04/08/19 21:00 96 Room Air 04/08/19 20:15 36.2 04/08/19 20:00 96 Room Air 04/08/19 19:00 61 04/08/19 16:00 96 Room Air 04/08/19 15:47 36.5 59 18 135/80 (98) 97 04/08/19 13:00 55 I & O 04/09/19 07:00 Intake Total 750 ml Balance 750 ml Capillary Refill : Less Than 3 Seconds General Appearance: No Apparent Distress, WD/WN HEENT: PERRL/EOMI, Moist Mucous Membranes Respiratory: Chest Non Tender, Lungs Clear, Normal Breath Sounds, No Accessory Muscle Use, No Respiratory Distress Cardiovascular: Regular Rate, Rhythm, No Murmur Peripheral Pulses: 2+ Dorsalis Pedis (R), 2+ Left Dors-Pedis (L) Gastrointestinal: soft, no organomegaly; No distended, No rebound; tenderness (subxiphoid), hernia (??small umbilical hernia) Extremity: No Pedal Edema Neurologic/Psychiatric: Alert, Oriented x3, No Motor/Sensory Deficits, Normal Mood/Affect Skin: Normal Color, Warm/Dry Results Lab Microbiology 04/07/19 Urine Culture - Final, Complete NO GROWTH Assessment/Plan Assessment/Plan Assessment/Plan Epigastric and Sub-xiphoid Pain Pt had US of the gallbladder today and it did not show any acute problems or gallstones. Therefore the next step is HIDA with EF and she needs an EGD. Will continue workup as an outpt; she is ok with this, but wants to do it this week. I will have my office call her, all questions answered to her satisfaction. Clinical Quality Measures DVT/VTE Risk/Contraindication: Risk Factor Score Per Nursin RFS Level Per Nursing on Admit: 2=Moderate URSULA DUMONT DO Apr 09, 2019 12:56 POS
--- OUTSIDE RECORDS SUMMARY | 2019-05-02 12:24 | XMS REPORT | Clinical Summary ---
Author Author [facility] Organization [facility] Address Unknown Phone Unavailable Care Team Providers Care Web Content Developer Name Role Phone Aly Del Castillo MD Unavailable Aly Del Castillo MD PCP Source Comments Some departments are not documenting in the electronic medical record. If you d o not see the information that you expected, contact Release of Information in [facility] [employer] Information Management department at [phone] for further assistan ce in locating additional records.[facility] Allergies Comments Active Allergy Reactions Severity Noted Date Sulfa (Sulfonamide HIVES 03/22/2012 Antibiotics) Medications End Date Status Medication Sig Dispensed Refills Start Date Active omeprazole DR(+) Take 40 mg by 0 (PRILOSEC) 40 mg capsule mouth daily. Active Problems Not on file Family History Relation Name Status Comments Brother Brother Father Mother Sister Social History Date Tobacco Use Types Packs/Day Years Used Never Smoker Drinks/Week oz/Week Comments Alcohol Use 5 Glasses of wine 5.0 Yes Sex Assigned at Date Recorded Not on file Industry Job Start Date Occupation Not on file Not on file Not on file Travel End Travel History Travel Start No recent travel history available. Last Filed Vital Signs Reading Time Taken Comments Vital Sign 146/87 03/22/2012 2:44 PM SENIOR MANAGEMENT CONSULTANT Blood Pressure 65 03/22/2012 2:44 PM SENIOR MANAGEMENT CONSULTANT Pulse 36.9 C (98.4 F) 03/22/2012 2:44 PM SENIOR MANAGEMENT CONSULTANT Temperature 16 03/22/2012 2:44 PM SENIOR MANAGEMENT CONSULTANT Respiratory Rate - - Oxygen Saturation - - Inhaled Oxygen Concentration 76.5 kg (168 lb 11.2 oz) 03/22/2012 2:44 PM SENIOR MANAGEMENT CONSULTANT Weight 162.6 cm (5' 4") 03/22/2012 2:44 PM SENIOR MANAGEMENT CONSULTANT Height 28.96 03/22/2012 2:44 PM SENIOR MANAGEMENT CONSULTANT Body Mass Index Plan of Treatment Health Maintenance Due Date Last Done Comments HEPATITIS C SCREENING 1948 DTAP/TDAP VACCINES (1 - 1959 Tdap) PHYSICAL (COMPREHENSIVE) 1966 EXAM BREAST CANCER SCREENING 1988 COLORECTAL CANCER 1998 SCREENING SHINGLES RECOMBINANT 1998 VACCINE (1 of 2) OSTEOPOROSIS 2013 SCREENING/MONITORING PNEUMONIA (PCV13/PPSV23) 2013 VACCINES (1 of 2 - PCV13) INFLUENZA VACCINE 12/06/2018 Results Not on filefrom Last 3 Months
--- OUTSIDE RECORDS SUMMARY | 2019-05-02 12:26 | XMS REPORT | Continuity of Care Document ---
Author Organization Unknown Address Unknown Phone Unavailable Allergies Active Description Code Type Severity Reaction Onset Reported/Identified Relationship to Patient Clinical Status Yes Sulfa (Sulfonamide Antibiotics) [id number] Drug Allergy Unknown N/A 016 Yes Sulfa (Sulfonamide Antibiotics) [id number] 0491 Drug Allergy Unknown FACE SWELLING/ 10/13/2015 Medications There is no data. 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 09/22/2009 Ot 535.40 OTH SPECIFIED GASTRITIS,W/O MENTION OF H 09/22/2009 Ot 553.3 DIAP HRAGMATIC HERNIA 09/22/2009 Ot 558.9 GILDARDO NF GASTROENTERIT NEC 09/22/2009 Ot 562.10 DIV ERTICULOSIS COLON (W/O MENT OF HEMORR 09/01/2011 Ot 530.81 ESO PHAGEAL REFLUX 09/01/2011 Ot 553.3 DIAP HRAGMATIC HERNIA 09/01/2011 Ot 787.91 WAYLON RRHEA 12/07/2012 JEANNE MARINO, ANDREA Boyle Ot 562.11 DIVERTICULITIS COLON (W/O MENT OF HEMORR 12/07/2012 ANDREA ANGEL MD Ot 789.09 ABDOMINAL PAIN, OTHER SPECIFIED SITE 04/14/2014 Ot V76.12 04/14/2014 Ot 573.8 04/14/2014 Ot 789.06 04/14/2014 Ot 789.06 04/14/2014 Ot V76.12 04/14/2014 Ot 496 04/14/2014 Ot 786.59 04/14/2014 Ot 787.3 04/14/2014 Ot 789.00 04/14/2014 Ot 791.9 04/14/2014 Ot V72.84 04/14/2014 Ot V72.84 04/14/2014 VIN VIVEROS MD Ot 272 .4 04/14/2014 VIN VIVEROS MD Ot 459.81 04/14/2014 JACKELINE MARINO, VIN Looney Ot 715.90 04/14/2014 JF MARINO, MECCA Tom Ot 789.00 04/14/2014 LEENA MARINO, DONA Boyle Ot 553. 3 04/14/2014 LEENA MARINO, DONA Boyle Ot 562. 10 04/14/2014 LEENA MARINO, DONA Boyle Ot V72. 84 04/14/2014 JF MARINO, MECCA Tom Ot V76.12 04/16/2014 KLARISSA MARINO, SONIA Ot 709.9 04/16/2014 KLARISSA MARINO, SONIA Ot V72.84 04/16/2014 KLARISSA MARINO, SONIA Ot V74.8 04/24/2014 KLARISSA MARINO, SONIA Ot 704.41 [facility] 03/16/2015 Ot 573.8 03/16/2015 Ot 789.06 03/16/2015 Ot 789.06 03/16/2015 Ot V76.12 03/16/2015 Ot 496 03/16/2015 Ot 786.59 03/16/2015 Ot 787.3 03/16/2015 Ot 789.00 03/16/2015 Ot 791.9 03/16/2015 Ot V72.84 03/16/2015 Ot V72.84 03/16/2015 JACKELINE MARINO, VIN Looney Ot 272 .4 03/16/2015 JACKELINE MARINO, VIN Looney Ot 459.81 03/16/2015 JACKELINE MARINO, VIN Looney Ot 715.90 03/16/2015 JF MARINO, MECCA Tom Ot 789.00 03/16/2015 LEENA MARINO, DONA Boyle Ot 553. 3 03/16/2015 LEENA MARINO, DONA Boyle Ot 562. 10 03/16/2015 LEENA MARINO, DONA Boyle Ot V72. 84 03/16/2015 MECCA RHOADES MD Ot V76.12 03/16/2015 KLARISSA MARINO, SONIA Ot 709.9 03/16/2015 KLARISSA MARINO, SONIA Ot V72.84 03/16/2015 KLARISSA MARINO, AVKI Ot V74.8 04/08/2015 PROSPER COCHRAN DO Ot E78.5 04/08/2015 COCHRAN DO, PROSPER Ot G43.11 9 04/08/2015 COCHRAN DO, PROSPER Ot I10 04/09/2015 COCHRAN DO, PROSPER Ot E78.5 04/09/2015 COCHRAN DO, PROSPER Ot G43.11 9 04/09/2015 COCHRAN DO, PROSPER Ot I10 08/31/2015 COCHRAN DO, PROSPER Ot K57.32 DVTRCLI OF LG INT [...] OF INTEST, PART UNSP, W/O PERF 10/07/2015 THOMAS RUIZ MD Ot K57.90 DVRTCLOS OF INTEST, PART UNSP, W/O PERF 10/08/2015 THOMAS RUIZ MD Ot K56.60 UNSPECIFIED INTESTINAL OBSTRUCTION 10/08/2015 RUIZ THOMAS MARINO Ot Z01.812 ENCOUNTER FOR PREPROCEDURAL LABORATORY E [...] DISORDER, UNSPECIFIED 10/15/2015 THOMAS RUIZ MD Ot I1 0 ESSENTIAL (PRIMARY) HYPERTENSION 10/15/2015 THOMAS RUIZ MD Ot K56.69 OTHER INTESTINAL OBSTRUCTION 10/16/2015 THOMAS RUIZ MD Ot E78.0 PURE HYPERCHOLESTEROLEMIA 10/16/2015 THOMAS RUIZ MD Ot E78.5 HYPERLIPIDEMIA, UNSPECIFIED 10/16/2015 THOMAS RUIZ MD Ot E87.6 HYPOKALEMIA 10/16/2015 THOMAS RUIZ MD Ot F41.9 ANXIETY DISORDER, UNSPECIFIED 10/16/2015 THOMAS RUIZ MD Ot I1 0 ESSENTIAL (PRIMARY) HYPERTENSION 10/16/2015 THOMAS RUIZ MD Ot K56.69 OTHER INTESTINAL OBSTRUCTION 10/16/2015 THMOAS RUIZ MD Ot K57.32 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 10/17/2015 THOMAS RUIZ MD Ot K25.9 GASTRIC ULCER, UNSP ACUTE OR CHRONIC, 10/17/2015 THOMAS RUIZ MD Ot K56.60 UNSPECIFIED INTESTINAL OBSTRUCTION 10/17/2015 RUIZ MD, THOMAS M Ot K57.90 DVRTCLOS OF INTEST, PART UNSP, W/O PERF 10/19/2015 PROSPER COCHRAN DO Ot E78.5 HYPERLIPIDEMIA, UNSPECIFIED 10/19/2015 PROSPER COCHRAN DO Ot F41.9 ANXIETY DISORDER, UNSPECIFIED 10/19/2015 COCHRANES VILLARREAL PROSPER Ot I10 ESSENTIAL (PRIMARY) HYPERTENSION 10/19/2015 COCHRANCIERRA SUGGS DOI Ot K21.9 GASTRO-ESOPHAGEAL REFLUX DISEASE WITHOUT 10/19/2015 COCHRANPROSPER SUGGS DO Ot K59.00 CONSTIPATION, UNSPECIFIED 10/19/2015 COCHRANCIERRA SUGGS DOI Ot R53.1 WEAKNESS 10/19/2015 PROSPER COCHRAN DO Ot Z48.81 5 ENCNTR FOR SURGICAL AFTCR FOLLOWING SURG 02/29/2016 Ot V76.12 OTH SCREEN MAMMO- MALIGN NEOPLASM OF [place] 02/29/2016 Ot 496 CHR AI RWAY OBSTRUCT NEC 02/29/[address] PAIN NEC 02/29/2016 Ot 787.3 FLAT UL/ERUCTAT/GAS PAIN 02/29/2016 Ot 789.00 ABD OMINAL PAIN, UNSPECIFIED SITE 02/29/2016 Ot 791.9 ABN URINE FINDINGS NEC 02/29/2016 Ot V72.84 EXA M PRE- OPERATIVE NOS 02/29/2016 Ot V72.84 EXA M PRE- OPERATIVE NOS 02/29/2016 VIN VIVEROS MD Ot 272 .4 HYPERLIPIDEMIA NEC/NOS 02/29/2016 VIN VIVEROS MD Ot 459.81 VENOUS INSUFFICIENCY NOS 02/29/2016 VIN VIVEROS MD Ot 715.90 OSTEOARTHROS NOS-UNSPEC 02/29/2016 JF MARINO, MECCA Tom Ot 789.00 ABDOMINAL PAIN, UNSPECIFIED SITE 02/29/2016 LEENA MARINO, DONA Boyle Ot 553. 3 DIAPHRAGMATIC HERNIA 02/29/2016 LEENA MARINO, DONA Boyle Ot 562. 10 DIVERTICULOSIS COLON (W/O MENT OF HEMORR 02/29/2016 DONA STERN MD Ot V72. 84 EXAM PRE-OPERATIVE NOS 02/29/2016 JF MARINO, MECCA Tom Ot V76.12 OTH SCREEN MAMMO-MALIGN NEOPLASM OF [place] 02/29/2016 SONIA CYR MD Ot 709.9 SKIN DISORDER NOS 02/29/2016 KLARISSA MARINO, SONIA Ot V72.84 EXAM PRE-OPERATIVE NOS 02/29/2016 KLARISSA MARINO, SONIA Ot V74.8 SCREEN-BACTERIAL DIS NEC 02/29/2016 PROSPER COCHRAN DO Ot E78.5 HYPERLIPIDEMIA, UNSPECIFIED 02/29/2016 COCHRANPROSPER SUGGS DO Ot G43.11 9 MIGRAINE WITH AURA, INTRACTABLE, WITHOUT 02/29/2016 PROSPER COCHRAN DO Ot I10 ESSENTIAL (PRIMARY) HYPERTENSION 02/29/2016 PROSPER COCHRAN DO Ot K57.32 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 02/29/2016 JOSEPH MARINO, THOMAS Tom Ot K57.90 DVRTCLOS OF INTEST, PART UNSP, W/O PERF 02/29/2016 Ot V76.12 OTH SCREEN MAMMO- MALIGN NEOPLASM OF [place] 02/29/2016 Ot 496 CHR AI RWAY OBSTRUCT NEC 02/29/[address] PAIN NEC 02/29/2016 Ot 787.3 FLAT UL/ERUCTAT/GAS PAIN 02/29/2016 Ot 789.00 ABD OMINAL PAIN, UNSPECIFIED SITE 02/29/2016 Ot 791.9 ABN URINE FINDINGS NEC 02/29/2016 Ot V72.84 EXA M PRE- OPERATIVE NOS 02/29/2016 Ot V72.84 EXA M PRE- OPERATIVE NOS 02/29/2016 JACKELINE MARINO, VIN Looney Ot 272 .4 HYPERLIPIDEMIA NEC/NOS 02/29/2016 VIN VIVEROS MD Ot 459.81 VENOUS INSUFFICIENCY NOS 02/29/2016 VIN VIVEROS MD Ot 715.90 OSTEOARTHROS NOS-UNSPEC 02/29/2016 JF MARINO, MECCA Tom Ot 789.00 ABDOMINAL PAIN, UNSPECIFIED SITE 02/29/2016 LEENA MARINO, DONA Boyle Ot 553. 3 DIAPHRAGMATIC HERNIA 02/29/2016 LEENA MARINO, DONA Boyle Ot 562. 10 DIVERTICULOSIS COLON (W/O MENT OF HEMORR 02/29/2016 DONA STERN MD Ot V72. 84 EXAM PRE-OPERATIVE NOS 02/29/2016 MECCA RHOADES MD Ot V76.12 OTH SCREEN MAMMO-MALIGN NEOPLASM OF [place] 02/29/2016 KLARISSA MARINO, SONIA Ot 709.9 SKIN DISORDER NOS 02/29/2016 KLARISSA MARINO, SONIA Ot V72.84 EXAM PRE-OPERATIVE NOS 02/29/2016 KLARISSA MARINO, SONIA Ot V74.8 SCREEN-BACTERIAL DIS NEC 02/29/2016 PROSPER COCHRAN DO Ot E78.5 HYPERLIPIDEMIA, UNSPECIFIED 02/29/2016 CIERRA COCHRAN DOI Ot G43.11 9 MIGRAINE WITH AURA, INTRACTABLE, WITHOUT 02/29/2016 CIERRA COCHRAN DOI Ot I10 ESSENTIAL (PRIMARY) HYPERTENSION 02/29/2016 PROSPER COCHRAN DO Ot K57.32 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 02/29/2016 JOSEPH MARINO, THOMAS Tom Ot K57.90 DVRTCLOS OF INTEST, PART UNSP, W/O PERF 02/29/2016 PROSPER COCHRAN DO Ot Z12.31 ENCNTR SCREEN MAMMOGRAM FOR MALIGNANT NE 02/29/2016 PROSPER COCHRAN DO Ot Z12.31 ENCNTR SCREEN MAMMOGRAM FOR MALIGNANT NE 03/01/2016 CIERRA COCHRAN DOI Ot Z12.31 ENCNTR SCREEN MAMMOGRAM FOR MALIGNANT NE 03/08/2016 SAMMIE VILLARREAL PROSPER Ot E78.2 MIXED HYPERLIPIDEMIA 03/09/2016 SAMMIE VILLARREAL PROSPER Ot E78.00 PURE HYPERCHOLESTEROLEMIA, UNSPECIFIED 03/09/2016 SAMMIE VILLARREAL PROSPER Ot E78.1 PURE HYPERGLYCERIDEMIA 03/09/2016 CIERRA COCHRAN DOI Ot Z00.00 ENCNTR FOR GENERAL ADULT MEDICAL EXAM 03/10/2016 CIERRA COCHRAN DOI Ot Z12.31 ENCNTR SCREEN MAMMOGRAM FOR MALIGNANT NE 03/14/2016 SAMMIE VILLARREAL PROSPER Ot E78.00 PURE HYPERCHOLESTEROLEMIA, UNSPECIFIED 03/14/2016 SAMMIE VILLARREAL PROSPER Ot E78.1 PURE HYPERGLYCERIDEMIA 03/14/2016 SAMMIE VILLARREAL PROSPER Ot Z00.00 ENCNTR FOR GENERAL ADULT MEDICAL EXAM 03/14/2016 SAMMIE VILLARREAL PROSPER Ot E78.00 PURE HYPERCHOLESTEROLEMIA, UNSPECIFIED 03/14/2016 SAMMIE VILLARREAL PROSPER Ot E78.1 PURE HYPERGLYCERIDEMIA 03/14/2016 CIERRA COCHRAN DOI Ot Z00.00 ENCNTR FOR GENERAL ADULT MEDICAL EXAM 04/05/2016 PROSPER COCHRAN DO Ot E78.00 PURE HYPERCHOLESTEROLEMIA, UNSPECIFIED 04/05/2016 SAMMIE VILLARREAL PROSPER Ot E78.1 PURE HYPERGLYCERIDEMIA 04/05/2016 CIERRA COCHRAN DOI Ot Z00.00 ENCNTR FOR GENERAL ADULT MEDICAL EXAM 01/17/2017 CIERRA COCHRAN DOI Ot Z12.31 ENCNTR SCREEN MAMMOGRAM FOR MALIGNANT NE 02/21/2017 SAMMIE VILLARREAL PROSPER Ot M79.60 5 PAIN IN LEFT LEG 02/27/2017 COCHRAN DO PROSPER Ot M79.60 5 PAIN IN LEFT LEG 02/27/2017 COCHRAN DO PROSPER Ot M79.60 5 PAIN IN LEFT LEG 03/20/2017 COCHRAN DO PROSPER Ot M79.60 5 PAIN IN LEFT LEG 03/22/2017 CIERRA COCHRAN DOI Ot Z12.31 ENCNTR SCREEN MAMMOGRAM FOR MALIGNANT NE 03/29/2017 CIERRA COCHRAN DOI Ot M79.60 5 PAIN IN LEFT LEG 05/02/2017 VIN VIVEROS MD Ot 272 .4 HYPERLIPIDEMIA NEC/NOS 05/02/2017 VIN VIVEROS MD Ot 459.81 VENOUS INSUFFICIENCY NOS 05/02/2017 VIN VIVEROS MD Ot 715.90 OSTEOARTHROS NOS-UNSPEC 05/02/2017 JF MARINO, MECCA Tom Ot 789.00 ABDOMINAL PAIN, UNSPECIFIED SITE 05/02/2017 LEENA MARINO, DONA Boyle Ot 553. 3 DIAPHRAGMATIC HERNIA 05/02/2017 LEENA MARINO, DONA Boyle Ot 562. 10 DIVERTICULOSIS COLON (W/O MENT OF HEMORR 05/02/2017 LEENA MARINO, DONA Boyle Ot V72. 84 EXAM PRE-OPERATIVE NOS 05/02/2017 JF MARINO, MECCA Tom Ot V76.12 OTH SCREEN MAMMO-MALIGN NEOPLASM OF [place] 05/02/2017 KLARISSA MARINO, SONIA Ot 709.9 SKIN DISORDER NOS 05/02/2017 SONIA CYR MD Ot V72.84 EXAM PRE-OPERATIVE NOS 05/02/2017 SONIA CYR MD Ot V74.8 SCREEN-BACTERIAL DIS NEC 05/02/2017 PROSPER COCHRAN DO Ot E78.5 HYPERLIPIDEMIA, UNSPECIFIED 05/02/2017 PROSPER COCHRAN DO Ot G43.11 9 MIGRAINE WITH AURA, INTRACTABLE, WITHOUT 05/02/2017 COCHRANES VILLARREAL PROSPER Ot I10 ESSENTIAL (PRIMARY) HYPERTENSION 05/02/2017 PROSPER COCHRAN DO Ot K57.32 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 05/02/2017 JOSEPH MARINO, THOMAS Tom Ot K57.90 DVRTCLOS OF INTEST, PART UNSP, W/O PERF 05/02/2017 PROSPER COCHRAN DO Ot Z12.31 ENCNTR SCREEN MAMMOGRAM FOR MALIGNANT NE 05/02/2017 PROSPER COCHRAN DO Ot E78.00 PURE HYPERCHOLESTEROLEMIA, UNSPECIFIED 05/02/2017 SAMMIE VILLARREAL PROSPER Ot E78.1 PURE HYPERGLYCERIDEMIA 05/02/2017 PROSPER COCHRAN DO Ot Z00.00 ENCNTR FOR GENERAL ADULT MEDICAL EXAM W/ 05/02/2017 PROSPER COCHRAN DO Ot Z12.31 ENCNTR SCREEN MAMMOGRAM FOR MALIGNANT NE 05/02/2017 PROSPER COCHRAN DO Ot M79.60 5 PAIN IN LEFT LEG 05/02/2017 ERIN VILLARREAL ROBYN K Ot E78.00 PURE HYPERCHOLESTEROLEMIA, UNSPECIFIED 05/02/2017 ERIN VILLARREAL ROBYN K Ot F41.9 ANXIETY DISORDER, UNSPECIFIED 05/02/2017 ERIN VILLARREAL ROBYN K Ot I10 ESSENTIAL (PRIMARY) HYPERTENSION 05/02/2017 ERIN VILLARREAL ROBYN K Ot K21.9 GASTRO-ESOPHAGEAL REFLUX DISEASE WITHOUT 05/02/2017 ERIN VILLARREAL ROBYN K Ot N76.6 ULCERATION OF VULVA 05/02/2017 RAMY KHAN DOA K Ot R21 RASH AND OTHER NONSPECIFIC SKIN ERUPTION 05/02/2017 RAMY KHAN DOA K Ot Z87.19 PERSONAL HISTORY OF OTHER DISEASES OF TH 05/04/2017 JACKELINE MARINO, VIN Looney Ot 272 .4 HYPERLIPIDEMIA NEC/NOS 05/04/2017 JACKELINE MARINO, VIN Looney Ot 459.81 VENOUS INSUFFICIENCY NOS 05/04/2017 JACKELINE MARINO, VIN Looney Ot 715.90 OSTEOARTHROS NOS-UNSPEC 05/04/2017 JF MARINO, MECCA Tom Ot 789.00 ABDOMINAL PAIN, UNSPECIFIED SITE 05/04/2017 LEENA MARINO, DONA Boyle Ot 553. 3 DIAPHRAGMATIC HERNIA 05/04/2017 LEENA MARINO, DONA Boyle Ot 562. 10 DIVERTICULOSIS COLON (W/O MENT OF HEMORR 05/04/2017 LEENA MARINO, DONA Boyle Ot V72. 84 EXAM PRE-OPERATIVE NOS 05/04/2017 JF MARINO, MECCA Tom Ot V76.12 OTH SCREEN MAMMO-MALIGN NEOPLASM OF [place] 05/04/2017 KLARISSA MARINO, SONIA Ot 709.9 SKIN DISORDER NOS 05/04/2017 KLARISSA MARINO, SONIA Ot V72.84 EXAM PRE-OPERATIVE NOS 05/04/2017 KLARISSA MARINO, SONIA Ot V74.8 SCREEN-BACTERIAL DIS NEC 05/04/2017 PROSPER COCHRAN DO Ot E78.5 HYPERLIPIDEMIA, UNSPECIFIED 05/04/2017 PROSPER COCHRAN DO Ot G43.11 9 MIGRAINE WITH AURA, INTRACTABLE, WITHOUT 05/04/2017 PROSPER COCHRAN DO Ot I10 ESSENTIAL (PRIMARY) HYPERTENSION 05/04/2017 PROSPER COCHRAN DO Ot K57.32 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 05/04/2017 JOSEPH MARINO, THOMAS Tom Ot K57.90 DVRTCLOS OF INTEST, PART UNSP, W/O PERF 05/04/2017 PROSPER COCHRAN DO Ot Z12.31 ENCNTR SCREEN MAMMOGRAM FOR MALIGNANT NE 05/04/2017 PROSPER COCHRAN DO Ot E78.00 PURE HYPERCHOLESTEROLEMIA, UNSPECIFIED 05/04/2017 CIERRA COCHRAN DOI Ot E78.1 PURE HYPERGLYCERIDEMIA 05/04/2017 PROSPER COCHRAN DO Ot Z00.00 ENCNTR FOR GENERAL ADULT MEDICAL EXAM W/ 05/04/2017 PROSPER COCHRAN DO Ot Z12.31 ENCNTR SCREEN MAMMOGRAM FOR MALIGNANT NE 05/04/2017 PROSPER COCHRAN DO Ot M79.60 5 PAIN IN LEFT LEG 05/08/2017 PROSPER COCHRAN DO Ot A60.04 HERPESVIRAL VULVOVAGINITIS 05/08/2017 PROSPER COCHRAN DO Ot B00.89 OTHER HERPESVIRAL INFECTION 05/08/2017 CIERRA COCHRAN DOI Ot E78.00 PURE HYPERCHOLESTEROLEMIA, UNSPECIFIED 05/08/2017 PROSPER COCHRAN DO Ot E78.5 HYPERLIPIDEMIA, UNSPECIFIED 05/08/2017 CIERRA COCHRAN DOI Ot E86.0 DEHYDRATION 05/08/2017 COCHRAN DO, PROSPER Ot E87.6 HYPOKALEMIA 05/08/2017 COCHRAN DO, PROSPER Ot I10 ESSENTIAL (PRIMARY) HYPERTENSION 05/08/2017 COCHRAN DO, PROSPER Ot K21.9 GASTRO-ESOPHAGEAL REFLUX DISEASE WITHOUT 05/08/2017 COCHRAN DO, PROSPER Ot K59.00 CONSTIPATION, UNSPECIFIED 05/08/2017 COCHRAN DO, PROSPER Ot R21 RASH AND OTHER NONSPECIFIC SKIN ERUPTION 05/08/2017 COCHRAN DO, PROSPER Ot R33.9 RETENTION OF URINE, UNSPECIFIED 06/01/2017 COCHRAN DO, PROSPER Ot R33.9 RETENTION OF URINE, UNSPECIFIED 09/19/2017 COCHRAN DO, PROSPER Ot I71.4 ABDOMINAL AORTIC ANEURYSM, WITHOUT RUPTU 10/06/2017 COCHRAN DO, PROSPER Ot I34.0 NONRHEUMATIC MITRAL (VALVE) INSUFFICIENC 10/06/2017 COCHRAN DO, PROSPER Ot R07.9 CHEST PAIN, UNSPECIFIED 10/09/2017 COCHRAN DO, PROSPER Ot R07.9 CHEST PAIN, UNSPECIFIED 10/10/2017 COCHRAN DO, PROSPER Ot I71.4 ABDOMINAL AORTIC ANEURYSM, WITHOUT RUPTU 10/18/2017 COCHRAN DO, PROSPER Ot I71.4 ABDOMINAL AORTIC ANEURYSM, WITHOUT RUPTU 10/25/2017 COCHRAN DO, PROSPER Ot I34.0 NONRHEUMATIC MITRAL (VALVE) INSUFFICIENC 10/25/2017 COCHRAN DO, PROSPER Ot R07.9 CHEST PAIN, UNSPECIFIED 10/27/2017 COCHRAN DO, PROSPER Ot R07.9 CHEST PAIN, UNSPECIFIED 11/01/2017 COCHRAN DO, PROSPER Ot I34.0 NONRHEUMATIC MITRAL (VALVE) INSUFFICIENC 11/01/2017 COCHRAN DO, PROSPER Ot R07.9 CHEST PAIN, UNSPECIFIED 11/01/2017 COCHRAN DO, PROSPER Ot R07.9 CHEST PAIN, UNSPECIFIED 06/13/2018 LEENA MARINO, DONA Boyle Ot 553. 3 DIAPHRAGMATIC HERNIA 06/13/2018 LEENA MARINO, DONA Boyle Ot 562. 10 DIVERTICULOSIS COLON (W/O MENT OF HEMORR 06/13/2018 LEENA MARINO, DONA Boyle Ot O52. 84 EXAM PRE-OPERATIVE NOS 06/13/2018 JF MARINO, MECCA Tom Ot V76.12 OTH SCREEN MAMMO-MALIGN NEOPLASM OF [place] 06/13/2018 KLARISSA MARINO, SONIA Ot 709.9 SKIN DISORDER NOS 06/13/2018 KLARISSA MARINO, SONIA Ot V72.84 EXAM PRE-OPERATIVE NOS 06/13/2018 SONIA CYR MD Ot V74.8 SCREEN-BACTERIAL DIS NEC 06/13/2018 SAMMIE VILLARREAL PROSPER Ot E78.5 HYPERLIPIDEMIA, UNSPECIFIED 06/13/2018 SAMMIE VILLARREAL PROSPER Ot G43.11 9 MIGRAINE WITH AURA, INTRACTABLE, WITHOUT 06/13/2018 SAMMIE VILLARREAL PROSPER Ot I10 ESSENTIAL (PRIMARY) HYPERTENSION 06/13/2018 SAMMIE VILLARREAL PROSPER Ot K57.32 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 06/13/2018 JOSEPH MARINO, THOMAS Tom Ot K57.90 DVRTCLOS OF INTEST, PART UNSP, W/O PERF 06/13/2018 SAMMIE VILLARREAL PROSPER Ot Z12.31 ENCNTR SCREEN MAMMOGRAM FOR MALIGNANT NE 06/13/2018 SAMMIE VILLARREAL PROSPER Ot E78.00 PURE HYPERCHOLESTEROLEMIA, UNSPECIFIED 06/13/2018 SAMMIE VILLARREAL PROSPER Ot E78.1 PURE HYPERGLYCERIDEMIA 06/13/2018 SAMMIE VILLARREAL PROSPER Ot Z00.00 ENCNTR FOR GENERAL ADULT MEDICAL EXAM W/ 06/13/2018 CIERRA COCHRAN DOI Ot Z12.31 ENCNTR SCREEN MAMMOGRAM FOR MALIGNANT NE 06/13/2018 SAMMIE VILLARREAL PROSPER Ot M79.60 5 PAIN IN LEFT LEG 06/13/2018 SAMMIE VILLARREAL PROSPER Ot R33.9 RETENTION OF URINE, UNSPECIFIED 06/13/2018 SAMMIE VILLARREAL PROSPER Ot I71.4 ABDOMINAL AORTIC ANEURYSM, WITHOUT RUPTU 06/13/2018 SAMMIE VILLARREAL PROSPER Ot I34.0 NONRHEUMATIC MITRAL (VALVE) INSUFFICIENC 06/13/2018 SAMMIE VILLARREAL PROSPER Ot R07.9 CHEST PAIN, UNSPECIFIED 06/13/2018 SAMMIE VILLARREAL PROSPER Ot R07.9 CHEST PAIN, UNSPECIFIED 06/13/2018 JOSEPH MARINO, THOMAS Tom Ot R16.0 HEPATOMEGALY, NOT ELSEWHERE CLASSIFIED 06/13/2018 JOSEPH MARINO, THOMAS Tom Ot R19.04 LEFT LOWER QUADRANT ABDOMINAL SWELLING, 06/13/2018 JOSEPH MARINO, THOMAS Tom Ot Z98.890 OTHER SPECIFIED POSTPROCEDURAL STATES 07/04/2018 JOSEPH MARINO, THOMAS Tom Ot R16.0 HEPATOMEGALY, NOT ELSEWHERE CLASSIFIED 07/04/2018 JOSEPH MARINO, THOMAS Tom Ot R19.04 LEFT LOWER QUADRANT ABDOMINAL SWELLING, 07/04/2018 JOSEPH MARINO, THOMAS Tom Ot Z98.890 OTHER SPECIFIED POSTPROCEDURAL STATES 07/09/2018 THOMAS RUIZ MD Ot R16.0 HEPATOMEGALY, NOT ELSEWHERE CLASSIFIED 07/09/2018 JOSEPH MARINO, THOMAS Tom Ot R19.04 LEFT LOWER QUADRANT ABDOMINAL SWELLING, 07/09/2018 JOSEPH MARINO, THOMAS Tom Ot Z98.890 OTHER SPECIFIED POSTPROCEDURAL STATES 03/06/2019 COCHRAN DO PROSPER Ot Z12.31 ENCNTR SCREEN MAMMOGRAM FOR MALIGNANT NE 03/12/2019 COCHRAN DO PROSPER Ot Z12.31 ENCNTR SCREEN MAMMOGRAM FOR MALIGNANT NE 04/09/2019 OSVALDO MARINO FACC, ALI FACP CCDS Ot E78.00 PURE HYPERCHOLESTEROLEMIA, UNSPECIFIED 04/09/2019 OSVALDO MARINO FACC, ALI FACP CCDS Ot E78.5 HYPERLIPIDEMIA, UNSPECIFIED 04/09/2019 OSVALDO MARINO FACC, ALI FACP CCDS Ot F41.9 ANXIETY DISORDER, UNSPECIFIED 04/09/2019 OSVALDO MARINO FACC, ALI FACP CCDS Ot I08.1 RHEUMATIC DISORDERS OF BOTH MITRAL AND T 04/09/2019 OSVALDO MARINO FACC, ALI FACP CCDS Ot I10 ESSENTIAL (PRIMARY) HYPERTENSION 04/09/2019 OSVALDO MARINO FACC, ALI FACP CCDS Ot I25.10 ATHSCL HEART DISEASE OF [place] CORONARY 04/09/2019 OSVALDO MARINO FACC, ALI FACP CCDS Ot K21.9 GASTRO-ESOPHAGEAL REFLUX DISEASE WITHOUT 04/09/2019 OSVALDO MARINO FACC, ALI FACP CCDS Ot K44.9 DIAPHRAGMATIC HERNIA WITHOUT OBSTRUCTION 04/09/2019 OSVALDO MARINO FACC, ALI FACP CCDS Ot K76.9 LIVER DISEASE, UNSPECIFIED 04/09/2019 OSVALDO MARINO FACC, ALI FACP CCDS Ot R07.89 OTHER CHEST PAIN 04/09/2019 OSVALDO MARINO FACC, ALI FACP CCDS Ot R10.13 EPIGASTRIC PAIN 04/09/2019 [facility]VALDO [facility], [facility] CCD[facility] Ot R78.89 FINDING OF OTH SUBSTANCES, NOT NORMALLY 04/09/2019 [facility]VALDO [facility], [facility] Ot R91.8 OTHER NONSPECIFIC ABNORMAL FINDING OF [place] 04/09/2019 OSVALDO MARINO FACC, [facility] CCDS Ot Z23 ENCOUNTER FOR IMMUNIZATION 04/09/2019 OSVALDO MARINO FACC, [facility] Ot Z90.710 ACQUIRED ABSENCE OF BOTH CERVIX AND UTER 04/09/2019 OSVALDO MARINO [facility] Z90.722 ACQUIRED ABSENCE OF OVARIES, BILATERAL 04/11/2019 JULIA VILLARREAL URSULA B Ot Z01.8 18 ENCOUNTER FOR OTHER PREPROCEDURAL EXAMIN 04/12/2019 TIFFANY DUMONT DOIC B Ot Z01.8 18 ENCOUNTER FOR OTHER PREPROCEDURAL EXAMIN 04/17/2019 TIFFANY DUMONT DOIC B Ot E78.5 HYPERLIPIDEMIA, UNSPECIFIED 04/17/2019 TIFFANY DUMONT DOIC B Ot F41.9 ANXIETY DISORDER, UNSPECIFIED 04/17/2019 JULIA VILLARREAL URSULA B Ot I10 ESSENTIAL (PRIMARY) HYPERTENSION 04/17/2019 JULIA VILLARREAL URSULA B Ot K21.0 GASTRO-ESOPHAGEAL REFLUX DISEASE WITH ES 04/17/2019 TIFFANY DUMONT DOIC B Ot K22.8 OTHER SPECIFIED DISEASES OF ESOPHAGUS 04/17/2019 TIFFANY DUMONT DOIC B Ot K29.5 0 UNSPECIFIED CHRONIC GASTRITIS WITHOUT BL 04/17/2019 JULIA VILLARREAL URSULA B Ot K44.9 DIAPHRAGMATIC HERNIA WITHOUT OBSTRUCTION 04/17/2019 TIFFANY DUMONT DOIC B Ot Z79.8 99 OTHER DIRECTOR CARDIOVASCULAR (CURRENT) DRUG THERAPY 04/17/2019 TIFFANY DUMONT DOIC B Ot Z88.2 ALLERGY STATUS TO SULFONAMIDES STATUS 04/17/2019 JULIA VILLARREAL URSULA B Ot Z90.7 10 ACQUIRED ABSENCE OF BOTH CERVIX AND UTER Procedures Code Description Performed By Per formed On 5VHF3IS RE SECTION OF SIGMOID COLON, PERCUTANEOUS 10/12/2015 [id number] RO BOTIC ASSISTED PROCEDURE OF TRUNK, PER 10/12/2015 [id number] ME ASURE OF CARDIAC SAMPL PRESSURE, L H 04/08/2019 [id number] FL UOROSCOPY OF MULT COR ART USING L OSM 04/08/2019 [id number] FL UOROSCOPY OF LEFT HEART USING LOW OSMO 04/08/2019 Results Test Result Range Comprehensive metabolic panel - 03/08/16 09:36 Serum or plasma sodium measurement (moles/volume) 142 mmol/L 135-145 Serum or plasma potassium measurement (moles/volume) 3.9 mmol/L 3.6-5.0 Serum or plasma chloride measurement (moles/volume) 107 mmol/L 98-107 Carbon dioxide 25 mmol/L 21-32 Serum or plasma anion gap determination (moles/volume) 10 mmol/L 5-14 Serum or plasma urea nitrogen measurement (mass/volume ) 16 mg/dL 7-18 Serum or plasma creatinine measurement (mass/volume) 0.68 mg/dL 0.60-1.30 Serum or plasma urea nitrogen/creatinine mass ratio 24 NRG Serum or plasma creatinine measurement w ith calculation of estimated glomerular filtration rate > NRG Serum or plasma glucose measurement (mass/volume) 87 mg/dL 70-105 Serum or plasma calcium measurement (mass/volume) 9.2 mg/dL 8.5-10.1 Serum or plasma total bilirubin measurement (mass/volu me) 0.9 mg/dL 0.1-1.0 Serum or plasma alkaline phosphatase morris surement (enzymatic activity/volume) 71 U/L 40-136 Serum or plasma aspartate aminotransfera se measurement (enzymatic activity/volume) 16 U/L 5-34 Serum or plasma alanine aminotransferase measurement (enzymatic activity/volume) 19 U/L 0-55 Serum or plasma protein measurement (mass/volume) 6.6 g/dL 6.4-8.2 Serum or plasma albumin measurement (mass/volume) 4.0 g/dL 3.2-4.5 Serum or plasma triglyceride measurement (mass/volume) - 03/08/16 09:36 Serum or plasma triglyceride measurement (mass/volume) 67 mg/dL <150 Serum or plasma cholesterol measurement (mass/volume) - 03/08/16 09:36 Serum or plasma cholesterol measurement (mass/volume) 233 mg/dL < 200 THYROID STIMULATING HORMONE - 03/08/16 0 9:36 THYROID STIMULATING HORMONE 2.58 u[iU]/mL 0.35-4.94 Complete blood count (CBC) with automate d white blood cell (WBC) differential - 02/20/17 15:38 Blood leukocytes automated count (number/volume) 7.1 10*3/uL 4.3-11.0 Blood erythrocytes automated count (number/volume) 4.03 10*6/uL 4.35-5.85 Venous blood hemoglobin measurement (mass/volume) 12.2 g/dL 11.5-16.0 Blood hematocrit (volume fraction) 37 % 35-52 Automated erythrocyte mean corpuscular volume 92 [ foz_us] 80-99 Automated erythrocyte mean corpuscular h emoglobin (mass per erythrocyte) 30 pg 25-34 Automated erythrocyte mean corpuscular h emoglobin concentration measurement (mass/volume) 33 g/dL 32-36 Automated erythrocyte distribution width ratio 13. 6 % 10.0- 14.5 Automated blood platelet count (count/volume) 253 10*3/uL [...] 10*3 1.0-4.0 Blood monocytes automated count (number/volume) 0. 5 10*3 0.0-1.0 Automated eosinophil count 0.4 10*3/uL 0 .0-0.3 Automated blood basophil count (count/volume) 0.0 10*3/uL 0.0-0.1 Erythrocyte sedimentation rate by marcela gren method - 02/20/17 15:38 Erythrocyte sedimentation rate by westergren method 7 mm 0- 30 Comprehensive metabolic panel - 02/20/17 15:38 Serum or plasma sodium measurement (moles/volume) 139 mmol/L 135-145 Serum or plasma potassium measurement (moles/volume) 3.4 mmol/L 3.6-5.0 Serum or plasma chloride measurement (moles/volume) 103 mmol/L 98-107 Carbon dioxide 28 mmol/L 21-32 Serum or plasma anion gap determination (moles/volume) 8 mmol/L 5-14 Serum or plasma urea nitrogen measurement (mass/volume ) 13 mg/dL 7-18 Serum or plasma creatinine measurement (mass/volume) 0.67 mg/dL 0.60-1.30 Serum or plasma urea nitrogen/creatinine mass ratio 19 NRG Serum or plasma creatinine measurement w ith calculation of estimated glomerular filtration rate > NRG Serum or plasma glucose measurement (mass/volume) 80 mg/dL 70-105 Serum or plasma calcium measurement (mass/volume) 9.1 mg/dL 8.5-10.1 Serum or plasma total bilirubin measurement (mass/volu me) 0.5 mg/dL 0.1-1.0 Serum or plasma alkaline phosphatase morris surement (enzymatic activity/volume) 71 U/L 40-136 Serum or plasma aspartate aminotransfera se measurement (enzymatic activity/volume) 17 U/L 5-34 Serum or plasma alanine aminotransferase measurement (enzymatic activity/volume) 16 U/L 0-55 Serum or plasma protein measurement (mass/volume) 6.6 g/dL 6.4-8.2 Serum or plasma albumin measurement (mass/volume) 3.8 g/dL 3.2-4.5 Serum or plasma uric acid measurement (m ass/volume) - 02/20/17 15:38 Serum or plasma uric acid measurement (mass/volume) 4.7 mg/dL 2.6-7.2 Complete urinalysis with reflex to cultu re - 05/02/17 09:31 Urine color determination YELLOW NRG Urine clarity determination SLIGHTLY CLOUDY NRG Urine pH measurement by test strip 7 5-9 Specific gravity of urine by test strip 1.005 1.016-1.022 Urine protein assay by test strip, semi-quantitative 2+ NEGATIVE Urine glucose detection by automated test strip NE GATIVE NEGATIVE Erythrocytes detection in urine sediment by light micr oscopy 3+ NEGATIVE Urine ketones detection by automated test strip 2+ NEGATIVE Urine nitrite detection by test strip NEGATIVE NEGATIVE Urine total bilirubin detection by test strip NEGA TIVE NEGATIVE Urine urobilinogen measurement by automated test strip (mass/volume) NORMAL NORMAL Urine leukocyte esterase detection by dipstick 3+ NEGATIVE Automated urine sediment erythrocyte cou nt by microscopy (number/high power field) [HPF] NRG Automated urine sediment leukocyte count by microscopy (number/high power field) [HPF] NRG Bacteria detection in urine sediment by light microsco py NEGATIVE NRG Squamous epithelial cells detection in u rine sediment by light microscopy 2-5 NRG Crystals detection in urine sediment by light microsco py NONE NRG Casts detection in urine sediment by light microscopy NONE NRG Mucus detection in urine sediment by light microscopy SMALL NRG Complete urinalysis with reflex to culture YES NRG Bacterial urine culture - 05/02/17 09:31 URINE CULTURE RESULTS MORE THAN 3 ISOLATES NRG Bacteria identification in genital speci men by aerobe culture - 05/02/17 09:50 FREE TEXT EXTERNAL PLUS ABUNDANT NORMAL RICKY NRG QUANTITY OF GROWTH Scant Growth NRG Bacteria identification in genital specimen by aerobe culture [id number] NRG Chlamydia trachomatis DNA detection by p robe and signal amplification method - 05/02/17 09:50 Chlamydia trachomatis DNA detection by p robe and target amplification method Not Detected Not Detected [id number] - 05/02/17 09:50 [id number] Negative Negative Serum herpes simplex virus 1 IgG antibody assay (units /volume) 5.67 H 0.00-0.89 Serum herpes simplex virus 2 IgG antibod y assay by immunoassay (units/volume) 0.32 {index_val} 0.00-0.89 Cerebrospinal fluid herpes simplex virus 1+2 IgM antibody assay (units/volume) 0.60 % 0.00-0.89 Human immunodeficiency virus (HIV) type 1 and 2 antibody detection - 05/02/17 09:50 Serum HIV 1+2 antibody detection by immunoblot Non-Reactive Non-Reactive Acute hepatitis panel - 05/02/17 09:50 Confirmatory quantitative serum or plasm a hepatitis B virus surface antigen measurement Non-Reactive Non-Reactive Hepatitis A virus IgM antibody assay Non-Reactive Non- Reactive Hepatitis B virus core IgM antibody assay Non-Reac tive Non- Reactive Serum hepatitis C virus antibody detection Non-[place] ctive Non-Reactive Microscopic examination by LORENZO preparati on - 05/02/17 09:50 Microscopic examination by LORENZO preparation TNP NRG Microscopic examination by wet preparati on - 05/02/17 09:50 WET PREP RESULTS NO YEAST OBSERVED, NO TRICH OMONAS OBSERVED NRG Neisseria gonorrhoeae DNA detection by p robe and signal amplification method - 05/02/17 09:50 Gonorrhea amp DNA-urine Not Detected No t Detected Serum reagin antibody assay (units/volum e) by RPR - 05/02/17 09:50 Serum reagin antibody assay (units/volume) by RPR Non-Reactive Non-Reactive Herpes simplex virus (HSV) culture - 09:50 Herpes simplex virus (HSV) culture POS NRG Complete blood count (CBC) with automate d white blood cell (WBC) differential - 05/02/17 10:21 Blood leukocytes automated count (number/volume) 7.1 10*3/uL 4.3-11.0 Blood erythrocytes automated count (number/volume) 4.32 10*6/uL 4.35-5.85 Venous blood hemoglobin measurement (mass/volume) 13.1 g/dL 11.5-16.0 Blood hematocrit (volume fraction) 40 % 35-52 Automated erythrocyte mean corpuscular volume 92 [ foz_us] 80-99 Automated erythrocyte mean corpuscular h emoglobin (mass per erythrocyte) 30 pg 25-34 Automated erythrocyte mean corpuscular h emoglobin concentration measurement (mass/volume) 33 g/dL 32-36 Automated erythrocyte distribution width ratio 13. 4 % 10.0- 14.5 Automated blood platelet count (count/volume) 232 10*3/uL [...] 10*3 1.0-4.0 Blood monocytes automated count (number/volume) 0. 6 10*3 0.0-1.0 Automated eosinophil count 0.1 10*3/uL 0 .0-0.3 Automated blood basophil count (count/volume) 0.0 10*3/uL 0.0-0.1 Comprehensive metabolic panel - 05/02/17 10:21 Serum or plasma sodium measurement (moles/volume) 139 mmol/L 135-145 Serum or plasma potassium measurement (moles/volume) 3.4 mmol/L 3.6-5.0 Serum or plasma chloride measurement (moles/volume) 102 mmol/L 98-107 Carbon dioxide 24 mmol/L 21-32 Serum or plasma anion gap determination (moles/volume) 13 mmol/L 5-14 Serum or plasma urea nitrogen measurement (mass/volume ) 10 mg/dL 7-18 Serum or plasma creatinine measurement (mass/volume) 0.68 mg/dL 0.60-1.30 Serum or plasma urea nitrogen/creatinine mass ratio 15 NRG Serum or plasma creatinine measurement w ith calculation of estimated glomerular filtration rate > NRG Serum or plasma glucose measurement (mass/volume) 93 mg/dL 70-105 Serum or plasma calcium measurement (mass/volume) 8.5 mg/dL 8.5-10.1 Serum or plasma total bilirubin measurement (mass/volu me) 0.5 mg/dL 0.1-1.0 Serum or plasma alkaline phosphatase morris surement (enzymatic activity/volume) 71 U/L 40-136 Serum or plasma aspartate aminotransfera se measurement (enzymatic activity/volume) 15 U/L 5-34 Serum or plasma alanine aminotransferase measurement (enzymatic activity/volume) 14 U/L 0-55 Serum or plasma protein measurement (mass/volume) 6.5 g/dL 6.4-8.2 Serum or plasma albumin measurement (mass/volume) 3.8 g/dL 3.2-4.5 Complete blood count (CBC) with automate d white blood cell (WBC) differential - 05/04/17 18:30 Blood leukocytes automated count (number/volume) 8.8 10*3/uL 4.3-11.0 Blood erythrocytes automated count (number/volume) 4.19 10*6/uL 4.35-5.85 Venous blood hemoglobin measurement (mass/volume) 12.9 g/dL 11.5-16.0 Blood hematocrit (volume fraction) 38 % 35-52 Automated erythrocyte mean corpuscular volume 90 [ foz_us] 80-99 Automated erythrocyte mean corpuscular h emoglobin (mass per erythrocyte) 31 pg 25-34 Automated erythrocyte mean corpuscular h emoglobin concentration measurement (mass/volume) 34 g/dL 32-36 Automated erythrocyte distribution width ratio 12. 9 % 10.0- 14.5 Automated blood platelet count (count/volume) 231 10*3/uL [...] 10*3 1.0-4.0 Blood monocytes automated count (number/volume) 0. 8 10*3 0.0-1.0 Automated eosinophil count 0.3 10*3/uL 0 .0-0.3 Automated blood basophil count (count/volume) 0.0 10*3/uL 0.0-0.1 Erythrocyte sedimentation rate by marcela gren method - 05/04/17 18:30 Erythrocyte sedimentation rate by westergren method 16 mm 0- 30 Comprehensive metabolic panel - 05/04/17 18:30 Serum or plasma sodium measurement (moles/volume) 139 mmol/L 135-145 Serum or plasma potassium measurement (moles/volume) 3.7 mmol/L 3.6-5.0 Serum or plasma chloride measurement (moles/volume) 101 mmol/L 98-107 Carbon dioxide 29 mmol/L 21-32 Serum or plasma anion gap determination (moles/volume) 9 mmol/L 5-14 Serum or plasma urea nitrogen measurement (mass/volume ) 10 mg/dL 7-18 Serum or plasma creatinine measurement (mass/volume) 0.68 mg/dL 0.60-1.30 Serum or plasma urea nitrogen/creatinine mass ratio 15 NRG Serum or plasma creatinine measurement w ith calculation of estimated glomerular filtration rate > NRG Serum or plasma glucose measurement (mass/volume) 100 mg/dL 70-105 Serum or plasma calcium measurement (mass/volume) 9.4 mg/dL 8.5-10.1 Serum or plasma total bilirubin measurement (mass/volu me) 0.4 mg/dL 0.1-1.0 Serum or plasma alkaline phosphatase morris surement (enzymatic activity/volume) 68 U/L 40-136 Serum or plasma aspartate aminotransfera se measurement (enzymatic activity/volume) 13 U/L 5-34 Serum or plasma alanine aminotransferase measurement (enzymatic activity/volume) 14 U/L 0-55 Serum or plasma protein measurement (mass/volume) 6.9 g/dL 6.4-8.2 Serum or plasma albumin measurement (mass/volume) 3.7 g/dL 3.2-4.5 Serum or plasma C reactive protein measu rement (mass/volume) - 05/04/17 18:30 Serum or plasma C reactive protein measurement (mass/v olume) 3.29 mg/dL 0.00-0.50 Herpes simplex virus (HSV) culture - 09:25 Herpes simplex virus (HSV) culture POS NRG Complete blood count (CBC) with automate d white blood cell (WBC) differential - 05/06/17 05:22 Blood leukocytes automated count (number/volume) 6.0 10*3/uL 4.3-11.0 Blood erythrocytes automated count (number/volume) 3.77 10*6/uL 4.35-5.85 Venous blood hemoglobin measurement (mass/volume) 11.6 g/dL 11.5-16.0 Blood hematocrit (volume fraction) 34 % 35-52 Automated erythrocyte mean corpuscular volume 91 [ foz_us] 80-99 Automated erythrocyte mean corpuscular h emoglobin (mass per erythrocyte) 31 pg 25-34 Automated erythrocyte mean corpuscular h emoglobin concentration measurement (mass/volume) 34 g/dL 32-36 Automated erythrocyte distribution width ratio 12. 9 % 10.0- 14.5 Automated blood platelet count (count/volume) 236 10*3/uL [...] 10*3 1.0-4.0 Blood monocytes automated count (number/volume) 0. 4 10*3 0.0-1.0 Automated eosinophil count 0.4 10*3/uL 0 .0-0.3 Automated blood basophil count (count/volume) 0.0 10*3/uL 0.0-0.1 Comprehensive metabolic panel - 05/06/17 05:22 Serum or plasma sodium measurement (moles/volume) 140 mmol/L 135-145 Serum or plasma potassium measurement (moles/volume) 3.2 mmol/L 3.6-5.0 Serum or plasma chloride measurement (moles/volume) 106 mmol/L 98-107 Carbon dioxide 26 mmol/L 21-32 Serum or plasma anion gap determination (moles/volume) 8 mmol/L 5-14 Serum or plasma urea nitrogen measurement (mass/volume ) 6 mg/dL 7-18 Serum or plasma creatinine measurement (mass/volume) 0.55 mg/dL 0.60-1.30 Serum or plasma urea nitrogen/creatinine mass ratio 11 NRG Serum or plasma creatinine measurement w ith calculation of estimated glomerular filtration rate > NRG Serum or plasma glucose measurement (mass/volume) 87 mg/dL 70-105 Serum or plasma calcium measurement (mass/volume) 7.7 mg/dL 8.5-10.1 Serum or plasma total bilirubin measurement (mass/volu me) 0.4 mg/dL 0.1-1.0 Serum or plasma alkaline phosphatase morris surement (enzymatic activity/volume) 52 U/L 40-136 Serum or plasma aspartate aminotransfera se measurement (enzymatic activity/volume) 13 U/L 5-34 Serum or plasma alanine aminotransferase measurement (enzymatic activity/volume) 11 U/L 0-55 Serum or plasma protein [...] 5-14 Serum or plasma urea nitrogen measurement (mass/volume ) 8 mg/dL 7-18 Serum or plasma creatinine measurement (mass/volume) 0.60 mg/dL 0.60-1.30 Serum or plasma urea nitrogen/creatinine mass ratio 13 NRG Serum or plasma creatinine measurement w ith calculation of estimated glomerular filtration rate > NRG Serum or plasma glucose measurement (mass/volume) 91 mg/dL 70-105 Serum or plasma calcium measurement (mass/volume) 8.4 mg/dL 8.5-10.1 Serum or plasma total bilirubin measurement (mass/volu me) 0.4 mg/dL 0.1-1.0 Serum or plasma alkaline phosphatase morris surement (enzymatic activity/volume) 53 U/L 40-136 Serum or plasma aspartate aminotransfera se measurement (enzymatic activity/volume) 16 U/L 5-34 Serum or plasma alanine aminotransferase measurement (enzymatic activity/volume) 15 U/L 0-55 Serum or plasma protein measurement (mass/volume) 5.4 g/dL 6.4-8.2 Serum or plasma albumin measurement (mass/volume) 3.0 g/dL 3.2-4.5 Complete blood count (CBC) with automate d white blood cell (WBC) differential - 05/07/17 05:18 Blood leukocytes automated count (number/volume) 7.1 10*3/uL 4.3-11.0 Blood erythrocytes automated count (number/volume) 3.64 10*6/uL 4.35-5.85 Venous blood hemoglobin measurement (mass/volume) 11.0 g/dL 11.5-16.0 Blood hematocrit (volume fraction) 34 % 35-52 Automated erythrocyte mean corpuscular volume 92 [ foz_us] 80-99 Automated erythrocyte mean corpuscular h emoglobin (mass per erythrocyte) 30 pg 25-34 Automated erythrocyte mean corpuscular h emoglobin concentration measurement (mass/volume) 33 g/dL 32-36 Automated erythrocyte distribution width ratio 12. 8 % 10.0- 14.5 Automated blood platelet count (count/volume) 246 10*3/uL [...] 10*3 1.0-4.0 Blood monocytes automated count (number/volume) 0. 5 10*3 0.0-1.0 Automated eosinophil count 0.4 10*3/uL 0 .0-0.3 Automated blood basophil count (count/volume) 0.0 10*3/uL 0.0-0.1 Complete blood count (CBC) with automate d white blood cell (WBC) differential - 04/07/19 17:24 Blood leukocytes automated count (number/volume) 7.2 10*3/uL 4.3-11.0 Blood erythrocytes automated count (number/volume) 4.12 10*6/uL 4.35-5.85 Venous blood hemoglobin measurement (mass/volume) 13.2 g/dL 11.5-16.0 Blood hematocrit (volume fraction) 39 % 35-52 Automated erythrocyte mean corpuscular volume 94 [ foz_us] 80-99 Automated erythrocyte mean corpuscular h emoglobin (mass per erythrocyte) 32 pg 25-34 Automated erythrocyte mean corpuscular h emoglobin concentration measurement (mass/volume) 34 g/dL 32-36 Automated erythrocyte distribution width ratio 13. 5 % 10.0- 14.5 Automated blood platelet count (count/volume) 272 10*3/uL 130-400 Automated blood platelet mean volume measurement 9.8 [foz_us] 7.4-10.4 Automated blood neutrophils/100 leukocytes 48 % 42-75 Automated blood lymphocytes/100 leukocytes 40 % 12-44 Blood monocytes/100 leukocytes 8 % 0-12 Automated blood eosinophils/100 leukocytes 4 % 0-10 Automated blood basophils/100 leukocytes 1 % 0-10 Blood neutrophils automated count (number/volume) 3.5 10*3 1.8-7.8 Blood lymphocytes automated count (number/volume) 2.9 10*3 1.0-4.0 Blood monocytes automated count (number/volume) 0. 6 10*3 0.0-1.0 Automated eosinophil count 0.3 10*3/uL 0 .0-0.3 Automated blood basophil count (count/volume) 0.0 10*3/uL 0.0-0.1 PT panel in platelet poor plasma by coag ulation assay - 04/07/19 17:24 Prothrombin time (PT) in platelet poor plasma by coagu lation assay 12.8 s 12.2-14.7 INR in platelet poor plasma or blood by coagulation as say 0.9 0.8-1.4 Activated partial thromboplastin time (a PTT) in platelet poor plasma bycoagulation assay - 04/07/19 17:24 Activated partial thromboplastin time (a PTT) in platelet poor plasma bycoagulation assay 26 s 24-35 Comprehensive metabolic panel - 04/07/19 17:24 Serum or plasma sodium measurement (moles/volume) 142 mmol/L 135-145 Serum or plasma potassium measurement (moles/volume) 3.6 mmol/L 3.6-5.0 Serum or plasma chloride measurement (moles/volume) 104 mmol/L 98-107 Carbon dioxide 24 mmol/L 21-32 Serum or plasma anion gap determination (moles/volume) 14 mmol/L 5-14 Serum or plasma urea nitrogen measurement (mass/volume ) 7 mg/dL 7-18 Serum or plasma creatinine measurement (mass/volume) 0.70 mg/dL 0.60-1.30 Serum or plasma urea nitrogen/creatinine mass ratio 10 NRG Serum or plasma creatinine measurement w ith calculation of estimated glomerular filtration rate > NRG Serum or plasma glucose measurement (mass/volume) 102 mg/dL 70-105 Serum or plasma calcium measurement (mass/volume) 9.2 mg/dL 8.5-10.1 Serum or plasma total bilirubin measurement (mass/volu me) 0.3 mg/dL 0.1-1.0 Serum or plasma alkaline phosphatase morris surement (enzymatic activity/volume) 62 U/L 40-136 Serum or plasma aspartate aminotransfera se measurement (enzymatic activity/volume) 19 U/L 5-34 Serum or plasma alanine aminotransferase measurement (enzymatic activity/volume) 19 U/L 0-55 Serum or plasma protein measurement (mass/volume) 7.3 g/dL 6.4-8.2 Serum or plasma albumin measurement (mass/volume) 4.4 g/dL 3.2-4.5 CALCIUM CORRECTED 8.9 mg/dL 8.5-10.1 Magnesium - 04/07/19 17:24 Magnesium 1.9 mg/dL 1.6-2.4 Serum or plasma troponin i.cardiac measu rement (mass/volume) - 04/07/19 17:24 Serum or plasma troponin i.cardiac measurement (mass/v olume) 0.051 ng/mL <0.028 Serum or plasma amylase measurement (enz ymatic activity/volume) - 04/07/19 17:24 Serum or plasma amylase measurement (enzymatic activit y/volume) 50 U/L 25-125 Lipase - 04/07/19 17:24 Lipase 28 U/L 8-78 Serum or plasma ethanol measurement (mas s/volume) - 04/07/19 17:24 Serum or plasma ethanol measurement (mass/volume) 10 mg/dL <10 Serum or plasma lithium measurement (mol es/volume) - 04/07/19 17:24 BNP PT 51.9 pg/mL <100.0 Complete urinalysis with reflex to cultu re - 04/07/19 17:58 Urine color determination YELLOW NRG Urine clarity determination CLEAR NR G Urine pH measurement by test strip 7.5 5-9 Specific gravity of urine by test strip 1.020 1.016-1.022 Urine protein assay by test strip, semi-quantitative NEGATIVE NEGATIVE Urine glucose detection by automated test strip NE GATIVE NEGATIVE Erythrocytes detection in urine sediment by light micr oscopy TRACE-I NEGATIVE Urine ketones detection by automated test strip NE GATIVE NEGATIVE Urine nitrite detection by test strip NEGATIVE NEGATIVE Urine total bilirubin detection by test strip NEGA TIVE NEGATIVE Urine urobilinogen measurement by automated test strip (mass/volume) 0.2 mg/dL < = 1.0 Urine leukocyte esterase detection by dipstick NEG ATIVE NEGATIVE Automated urine sediment erythrocyte cou nt by microscopy (number/high power field) [HPF] NRG Automated urine sediment leukocyte count by microscopy (number/high power field) NONE NRG Bacteria detection in urine sediment by light microsco py MODERATE NRG Crystals detection in urine sediment by light microsco py NONE NRG Casts detection in urine sediment by light microscopy NONE NRG Mucus detection in urine sediment by light microscopy NEGATIVE NRG Complete urinalysis with reflex to culture YES NRG Bacterial urine culture - 04/07/19 17:58 Bacterial urine culture NG NRG Serum or plasma troponin i.cardiac measu rement (mass/volume) - 04/08/19 00:18 Serum or plasma troponin i.cardiac measurement (mass/v olume) 0.032 ng/mL <0.028 Complete blood count (CBC) with automate d white blood cell (WBC) differential - 04/08/19 04:30 Blood leukocytes automated count (number/volume) 6.3 10*3/uL 4.3-11.0 Blood erythrocytes automated count (number/volume) 3.69 10*6/uL 4.35-5.85 Venous blood hemoglobin measurement (mass/volume) 11.5 g/dL 11.5-16.0 Blood hematocrit (volume fraction) 35 % 35-52 Automated erythrocyte mean corpuscular volume 95 [ foz_us] 80-99 Automated erythrocyte mean corpuscular h emoglobin (mass per erythrocyte) 31 pg 25-34 Automated erythrocyte mean corpuscular h emoglobin concentration measurement (mass/volume) 33 g/dL 32-36 Automated erythrocyte distribution width ratio 13. 4 % 10.0- 14.5 Automated blood platelet count (count/volume) 238 10*3/uL 130-400 Automated blood platelet mean volume measurement 9.8 [foz_us] 7.4-10.4 Automated blood neutrophils/100 leukocytes 44 % 42-75 Automated blood lymphocytes/100 leukocytes 44 % 12-44 Blood monocytes/100 leukocytes 7 % 0-12 Automated blood eosinophils/100 leukocytes 4 % 0-10 Automated blood basophils/100 leukocytes 1 % 0-10 Blood neutrophils automated count (number/volume) 2.8 10*3 1.8-7.8 Blood lymphocytes automated count (number/volume) 2.8 10*3 1.0-4.0 Blood monocytes automated count (number/volume) 0. 4 10*3 0.0-1.0 Automated eosinophil count 0.3 10*3/uL 0 .0-0.3 Automated blood basophil count (count/volume) 0.1 10*3/uL 0.0-0.1 Comprehensive metabolic panel - 04/08/19 04:30 Serum or plasma sodium measurement (moles/volume) 140 mmol/L 135-145 Serum or plasma potassium measurement (moles/volume) 3.4 mmol/L 3.6-5.0 Serum or plasma chloride measurement (moles/volume) 107 mmol/L 98-107 Carbon dioxide 24 mmol/L 21-32 Serum or plasma anion gap determination (moles/volume) 9 mmol/L 5-14 Serum or plasma urea nitrogen measurement (mass/volume ) 8 mg/dL 7-18 Serum or plasma creatinine measurement (mass/volume) 0.64 mg/dL 0.60-1.30 Serum or plasma urea nitrogen/creatinine mass ratio 13 NRG Serum or plasma creatinine measurement w ith calculation of estimated glomerular filtration rate > NRG Serum or plasma glucose measurement (mass/volume) 85 mg/dL 70-105 Serum or plasma calcium measurement (mass/volume) 8.3 mg/dL 8.5-10.1 Serum or plasma total bilirubin measurement (mass/volu me) 0.6 mg/dL 0.1-1.0 Serum or plasma alkaline phosphatase morris surement (enzymatic activity/volume) 50 U/L 40-136 Serum or plasma aspartate aminotransfera se measurement (enzymatic activity/volume) 17 U/L 5-34 Serum or plasma alanine aminotransferase measurement (enzymatic activity/volume) 14 U/L 0-55 Serum or plasma protein measurement (mass/volume) 5.9 g/dL 6.4-8.2 Serum or plasma albumin measurement (mass/volume) 3.6 g/dL 3.2-4.5 CALCIUM CORRECTED 8.6 mg/dL 8.5-10.1 Lipid 1996 panel - 04/08/19 04:30 Serum or plasma triglyceride measurement (mass/volume) 50 mg/dL <150 Serum or plasma cholesterol measurement (mass/volume) 211 mg/dL < 200 Serum or plasma cholesterol in HDL measurement (mass/v olume) 67 mg/dL 40-60 Cholesterol in LDL [mass/volume] in serum or plasma by direct assay 139 mg/dL 1-129 Serum or plasma cholesterol in VLDL measurement (mass/ volume) 10 mg/dL 5-40 Serum or plasma troponin i.cardiac measu rement (mass/volume) - 04/08/19 04:30 Serum or plasma troponin i.cardiac measurement (mass/v olume) 0.038 ng/mL <0.028 Methicillin resistant Staphylococcus aur eus (MRSA) screening culture - 04/08/19 16:46 Methicillin resistant Staphylococcus aureus (MRSA) scr eening culture NEG NRG Encounters ACCT No. Visit Date/Time Discharge Status Pt. Type Provider Facility Loc./Unit Complaint [id number] 04/12/2019 11:15:00 13:52:00 DIS Outpatient URSULA DUMONT DO [facility] ENDO EPIGASTRIC PAIN [id number] 04/11/2019 05:48:00 12/05/2 019 12:51:00 DIS Outpatient JULIA VILLARREALURSULA [facility] PREOP EGD [id number] 04/07/2019 19:45:00 13:50:00 DIS Inpatient OSVALDO MARINO FAC, POWER MARQUEZ CCD S [facility] CSD NSTEMI [id number] 03/08/2019 10:04:00 23:59:59 CLS Outpatient COCHRAN DO, PROSPER [facility] RAD SCREENING [id number] 06/13/2018 09:51:00 019 23:59:59 CLS Outpatient JOSEPH MARINO, THOMAS Tom [facility] RAD LLQ ABD SWELLING [id number] 10/06/2017 06:59:00 018 23:59:59 CLS Outpatient COCHRAN DO, PROSPER [facility] CARD CHEST PAIN IN ADULT [id number] 10/05/2017 12:25:00 018 23:59:59 CLS Outpatient COCHRAN DO, PROSPER [facility] CARD R07.9 CHEST PAIN IN [place] LT [id number] 09/18/2017 07:26:00 018 23:59:59 CLS Outpatient COCHRAN DO, PROSPER [facility] RAD I71.4 ABDFOMINAL AORTIC ANEURYSM, WITHOUT RUPTURE [id number] 05/31/2017 20:31:00 018 23:59:59 CLS Outpatient COCHRAN DO, PROSPER [facility] 4THo CATHETER [id number] 05/05/2017 11:18:00 018 15:30:00 DIS Inpatient COCHRAN DO, PROSPER V [facility] 4TH DEHYDRATION [id number] 05/02/2017 08:59:00 017 10:59:00 DIS Emergency ROBYN KHAN DO a [facility] ER BREAKOUTS AND PAIN IN G ENITAL AREA [id number] 03/01/2017 08:59:00 017 23:59:59 CLS Outpatient COCHRAN DO, PROSPER [facility] RAD Z12.31 [id number] 02/20/2017 15:15:00 017 23:59:59 CLS Outpatient SAMMIE VILLARREAL PROSPER [facility] RAD LT LEG PAIN M79.605 R60 .0 [id number] 03/08/2016 09:24:00 016 23:59:59 CLS Outpatient SAMMIE VILLARREAL PROSPER [facility] LAB ZOO.00,E78.0 [id number] 02/29/2016 14:49:00 016 23:59:59 CLS Outpatient SAMMIE VILLARREAL PROSPER [facility] RAD SCREENING [id number] 10/16/2015 09:45:00 016 11:45:00 DIS Inpatient PROSPER COCHRAN DO V [facility] 4TH SWB, SIGMOID DIVERTIC S TRICTURE [id number] 10/12/2015 11:21:00 016 09:30:00 DIS Inpatient THOMAS RUIZ MD Via [facility] 4TH SIGMOID DIVERTIC STRICT URE [id number] 10/08/2015 10:15:00 016 12:19:00 DIS Outpatient THOMAS RUIZ MD Via [facility] PREOP STRICTURE [id number] 09/30/2015 12:06:00 016 17:15:00 DIS Outpatient THOMAS RUIZ MD Via [facility] SDC ABNORMAL CT;GERD [id number] 09/29/2015 05:37:00 016 08:28:00 DIS Outpatient THOMAS RUIZ MD Via [facility] PREOP ABNORMAL CT; GERD [id number] 09/11/2015 12:54:00 016 23:59:59 CLS Outpatient THOMAS RUIZ MD Via [facility] RAD ABD ABSCESS,DIVERTICUL ITIS,COLON THICKENING [id number] 08/25/2015 10:14:00 016 23:59:59 CLS Outpatient ASMMIE VILLARREAL PROSPER Via [facility] RAD DIVERTICULITIS OF LARGE INTESTINE W/O PERFORATION [id number] 03/16/2015 13:57:00 015 23:59:59 CLS Outpatient PROSPER COCHRAN DO Via [facility] RAD HEADACHE [id number] 04/24/2014 07:22:00 014 11:30:00 DIS Outpatient SONIA CYR MD Via [facility] SCALP LESION [id number] 04/14/2014 13:30:00 014 23:59:59 CLS Outpatient SONIA CYR MD Via [facility] PREOP SCALP LESION [id number] 02/22/2013 07:32:00 23:59:59 CLS Outpatient MECCA RHOADES MD Via [facility] RAD SCREENING [id number] 02/22/2013 07:29:00 23:59:59 C[facility] [id number] 02/20/2013 07:20:00 23:59:59 CLS Outpatient DONA STERN MD Via [facility] PREOP BARRX [id number] 12/19/2012 12:04:00 23:59:59 CLS Outpatient MECCA RHOADES MD Via [facility] RAD HX OF ACUTE DIVERTICULITIS,ABD PAIN [id number] 12/06/2012 22:46:00 013 01:52:00 DIS Emergency ANDREA ANGEL MD Via [facility] ER ABD PAIN [id number] 10/10/2012 08:29:00 23:59:59 CLS Outpatient VIN VIVEROS MD Via [facility] LAB OA,HLP,VENOUS INSUFFICI NECY [id number] 04/29/2019 10:00:00 P EN Preadmit URSULA DUMONT DO Via [facility] CARD EPIGASTRIC ABD PAIN [id number] 04/14/2014 13:29:00 Document Registration [id number] 09/01/2011 06:28:00 Document Registration [id number] 08/30/2011 07:33:00 Document Registration [id number] 06/23/2011 08:29:00 Document Registration [id number] 11/18/2010 15:14:00 Document Registration [id number] 10/15/2010 15:17:00 Document Registration [id number] 02/25/2010 07:37:00 Document Registration [id number] 10/12/2009 08:12:00 Document Registration [id number] 09/22/2009 08:00:00 Document Registration [id number] 04/01/2009 15:26:00 Document Registration [email or web address] 04/24/2014 07:23:13 ACT Document Registration
== END 2019-04-09 13:50 | disposition home or self-care (01) | DRG 287 ==
LOC: EDUNIT# 17:05 → ER 17:06 → ICU 19:45 → CSD 04-08 13:40
PROVIDERS: ADMIT Internal Medicine Cardiovascular Disease; ATTEND Internal Medicine Cardiovascular Disease
PROC: 4A023N7 Measurement of Cardiac Sampling and Pressure, Left Heart, Percutaneous Approach (ICD-10-PCS; principal; 2019-04-08)
PROC: B2111ZZ Fluoroscopy of Multiple Coronary Arteries using Low Osmolar Contrast (ICD-10-PCS; 2019-04-08)
PROC: B2151ZZ Fluoroscopy of Left Heart using Low Osmolar Contrast (ICD-10-PCS; 2019-04-08)
DX: R07.89 Other chest pain (principal); R10.13 Epigastric pain; R78.89 Finding of other specified substances, not normally found in blood; E78.5 Hyperlipidemia, unspecified; E78.00 Pure hypercholesterolemia, unspecified; I10 Essential (primary) hypertension; I25.10 Atherosclerotic heart disease of native coronary artery without angina pectoris; K44.9 Diaphragmatic hernia without obstruction or gangrene; K21.9 Gastro-esophageal reflux disease without esophagitis; F41.9 Anxiety disorder, unspecified; R91.8 Other nonspecific abnormal finding of lung field; K76.9 Liver disease, unspecified; I08.1 Rheumatic disorders of both mitral and tricuspid valves; Z90.710 Acquired absence of both cervix and uterus; Z90.722 Acquired absence of ovaries, bilateral; Z23 Encounter for immunization
CPT/HCPCS: 36415; 71275; 74022; 74177; 76705; 80053; 80061; 80320; 81000; 82150; 83690; 83735; 83880; 84484; 85025; 85610; 85730; 87081; 87088; 93005; 93041; 93458; 96361; 96372; 96374; 96375

== ENCOUNTER 2019-04-11 05:48 | Outpatient (CLI) | payer MEDICARE ==
[~2019-04-11] VITALS: Ht 162 cm; Wt 66.8 kg
[~2019-04-11 05:48] MED LIST changes: +BACI1TAB3 PO; +ESTR0.5T VG; +OMEG10005 PO; +UBID100C44 PO
== END 2019-04-11 12:51 | disposition home or self-care (01) ==
LOC: PREOP 05:48
PROVIDERS: ATTEND Surgery
DX: Z01.818 Encounter for other preprocedural examination (principal)

== ENCOUNTER 2019-04-12 11:15 | Day surgery (SDC) | payer MEDICARE ==
[~2019-04-12] VITALS: Ht 162 cm; Wt 66.8 kg
[~2019-04-12 11:15] MED LIST changes: -DIAZ5TAB3 PO; +DIAZ5TAB49 PO; +OMEP-280 PO; -OMEP20CA13 PO
[2019-04-12] MEDS ORDERED: LACTATED RINGERS 1,000 ML IV STA (11:55)
[2019-04-12] MEDS ORDERED: HURRICAINE EXT TUBE (BENZOCAINE) XX PRN (12:00)
[2019-04-12] MEDS ORDERED: LACTATED RINGERS 1,000 ML IV ONE (12:01)
[2019-04-12] MEDS ORDERED: proPOfol 200 MG/20 ML (DIPRIVAN) VIAL IV ONE (12:06)
[2019-04-12] MEDS ORDERED: MIDAZOLAM 2 MG/2 ML (VERSED) VIAL ONE (12:07)
[2019-04-12 12:39] VITALS: BP 132/79
--- NOTE | 2019-04-12 12:42 | Progress Note-Pre Operative ---
Pre-Operative Progress Note H&P Reviewed The H&P was reviewed, patient examined and no changes noted. Time Seen by Provider: 11:36 Date H&P Reviewed: Apr 12, 2019 Time H&P Reviewed: 11:35 Pre-Operative Diagnosis: Epigastric Abd pain URSULA DUMONT DO Apr 12, 2019 12:42 POS
[2019-04-12 12:55] VITALS: BP 130/75
[2019-04-12 13:00] VITALS: BP 117/70
--- NOTE | 2019-04-12 13:03 | Progress Note-Post Operative ---
Post-Operative Progess Note Surgeon (s)/Test Conductor (s) Surgeon URSULA DUMONT DO Test Conductor: none Pre-Operative Diagnosis Epigastric Abd pain Post-Operative Diagnosis Gastritis Hiatal Hernia Esophageal polyp Procedure & Operative Findings Date of Procedure 04/12/19 Procedure Performed/Findings EGD with bx Anesthesia Type IV sedation by anesthesia Estimated Blood Loss Estimated blood loss (mL): scant Specimens/Packing Specimens Removed antral bx GE jxn bx Esophageal bx URSULA DUMONT DO Apr 12, 2019 13:03 POS
--- NOTE | 2019-04-12 13:05 | Endoscopy Discharge Instruct ---
Endo Procedure/Findings Findings 1.: Gastritis 2.: Hiatal Hernia 3.: Polyp (Esophagus) Discharge Instructions - Activity: You might feel a little sleepy until tomorrow. This is due to the medicine you received to relax you. Until tomorrow, you should: NOT drive a car, operate machinery or power tools. NOT drink any alcoholic beverages. NOT make any important decisions or sign importortant papers. Do not return to work until tomorrow, unless otherwise instructed. Resume previous activities tomorrow. Diet: Start by taking liquids. If you tolerate liquids, advance to solid food. Make an appointment for 2 weeks. Notify Physician - If you experience excessive bleeding, unusual abdominal pain, fever, or chest pain, contact your doctor immediately. URSULA DUMONT DO Apr 12, 2019 13:05 POS
[2019-04-12 13:10] VITALS: BP 118/69
[2019-04-12 13:15] VITALS: BP 118/69
--- NOTE | 2019-04-12 13:43 | Anesthesia-General Post-Op ---
MAC Patient Condition Mental Status/LOC: Same as Preop Cardiovascular: Satisfactory Nausea/Vomiting: Absent Respiratory: Satisfactory Pain: Controlled Complications: Absent Post Op Complications Complications None Follow Up Care/Instructions Patient Instructions None needed. Anesthesiology Discharge Order Discharge Order Patient is doing well, no complaints, stable vital signs, no apparent adverse anesthesia problems. EFFIE PANTOJA DO Apr 12, 2019 13:43 POS
[2019-04-12 13:50] VITALS: BP 117/75
--- NOTE | 2019-04-13 01:18 | OPERATIVE REPORT ---
DATE OF SERVICE: 04/12/2019 PREOPERATIVE DIAGNOSES: Epigastric pain. POSTOPERATIVE DIAGNOSES: 1. Gastritis. 2. Hiatal hernia. 3. Esophageal polyp. PROCEDURE: EGD with biopsy. SURGEON: Rodrick Ruano DO. TRIMMER SAWYER: None. ANESTHESIA: IV sedation by anesthesia. SPECIMEN: Biopsy from the antrum, one biopsy from the body of stomach, one biopsy of the GE junction, and then a biopsy of the esophageal polyp. BLOOD LOSS: Scant. FLUIDS: Per anesthesia. POSTOPERATIVE CONDITION: Stable. INDICATION FOR PROCEDURE: The patient is a 68-year-old female who has been having epigastric pain and some chest pain, had a cardiac workup that was negative, needed an EGD and she is also getting a gallbladder workup. FINDINGS: The patient had some mild gastritis. Duodenum looked okay. Small hiatal hernia and looked like she had some polyps in the esophagus. PROCEDURE NOTE: After informed consent was obtained, the patient was brought to the endoscopy suite and placed in the left lateral decubitus position. She was administered IV sedation by the anesthesiologist who then monitored her vitals the entire time, heart rate, blood pressure and pulse ox and the scope was inserted down the mouth through the esophagus into the stomach, pushed towards the antrum, took a picture of the antrum. Pushed into the duodenum, duodenum looked fine, took a picture. Pulled back and then did a biopsy of the antrum and then retroflexed the scope, saw a small hiatal hernia, took a picture, did a biopsy of body of stomach and then pulled the scope back up into the esophagus, did a biopsy of the GE junction and then suctioned the air out of the stomach and then pulled the scope up into the esophagus, where we saw what looked like polyps and did a biopsy of polyps and pulled the scope up out the mouth. The patient tolerated the procedure, recovered in endoscopy suite. Job ID: [id number] DocumentID: [id number] Dictated Date: 04/12/2019 14:42:55 Tool Dispatcher Date: 04/13/2019 01:17:43 Dictated By: RODRICK RUANO DO
--- OUTSIDE RECORDS SUMMARY | 2019-05-08 16:57 | XMS REPORT | Clinical Summary ---
Author Author [facility] Organization [facility] Address Unknown Phone Unavailable Care Team Providers Care Controlled Area Checker Name Role Phone Aly Del Castillo MD Unavailable Aly Del Castillo MD PCP Source Comments Some departments are not documenting in the electronic medical record. If you d o not see the information that you expected, contact Release of Information in [facility] Information Management department at [phone] for further assistan ce in locating additional records.[facility] Allergies Comments Active Allergy Reactions Severity [...] Comments Vital Sign 146/87 03/22/2012 2:44 PM LAP WELDER Blood Pressure 65 03/22/2012 2:44 PM LAP WELDER Pulse 36.9 C (98.4 F) 03/22/2012 2:44 PM LAP WELDER Temperature 16 03/22/2012 2:44 PM LAP WELDER Respiratory Rate - - Oxygen Saturation - - Inhaled Oxygen Concentration 76.5 kg (168 lb 11.2 oz) 03/22/2012 2:44 PM LAP WELDER Weight 162.6 cm (5' 4") 03/22/2012 2:44 PM LAP WELDER Height 28.96 03/22/2012 2:44 PM LAP WELDER Body Mass Index Plan of Treatment Health [...]
--- OUTSIDE RECORDS SUMMARY | 2019-05-08 16:57 | XMS REPORT | Continuity of Care Document ---
Author Organization Unknown Address Unknown Phone Unavailable Allergies Active Description Code Type Severity Reaction Onset Reported/Identified Relationship to Patient Clinical Status Yes Sulfa (Sulfonamide Antibiotics) [id number] 0491 Drug Allergy Unknown N/A 016 Yes Sulfa (Sulfonamide Antibiotics) G53003 0491 Drug Allergy Unknown FACE SWELLING/ 10/13/2015 [...] V74.8 04/24/2014 KLARISSA MARINO, SONIA Ot 704.41 [facility] 03/16/2015 Ot 573.8 03/16/2015 Ot 789.06 03/16/2015 Ot 789.06 03/16/2015 Ot V76.12 03/16/2015 Ot 496 03/16/2015 Ot 786.59 03/16/2015 Ot 787.3 03/16/2015 Ot 789.00 03/16/2015 Ot 791.9 03/16/2015 Ot V72.84 03/16/2015 Ot V72.84 03/16/2015 JACKELINE MARINO, VIN Looney Ot 272 .4 03/16/2015 JACKELINE MARINO, VIN Looney Ot 459.81 03/16/2015 JACKELINE MARINO, VIN Looney Ot 715.90 03/16/2015 JF MARINO, MECCA Tmo Ot 789.00 03/16/2015 LEENA MARINO, DONA Boyle [...] RUIZ MD Ot E78.0 PURE HYPERCHOLESTEROLEMIA 10/16/2015 THOMSA RUIZ MD Ot E78.5 HYPERLIPIDEMIA, UNSPECIFIED 10/16/2015 [...] Ot V72. 84 EXAM PRE-OPERATIVE NOS 05/04/2017 FJ MARINO, MECCA Tom Ot V76.12 OTH SCREEN [...] HEMORR 06/13/2018 LEENA MARINO, DONA Boyle Ot B92. 84 EXAM PRE-OPERATIVE NOS 06/13/2018 JF MARINO, [...] CCDS Ot I25.10 ATHSCL HEART DISEASE OF [place] CORONARY 04/09/2019 OSVALDO MARINO FACC, ALI FACP [...] CCDS Ot R10.13 EPIGASTRIC PAIN 04/09/2019 [facility]AC, [facility] Ot R78.89 FINDING OF OTH SUBSTANCES, NOT NORMALLY 04/09/2019 OSVALDO MARINO [facility], ALI FACP CCDS Ot R91.8 OTHER NONSPECIFIC ABNORMAL FINDING OF TRACY 04/09/2019 OSVALDO MARINO [facility], ALI FACP CCDS Ot Z23 ENCOUNTER FOR IMMUNIZATION 04/09/2019 OSVALDO PERALTA, ALI FACP CCDS Ot Z90.710 ACQUIRED ABSENCE OF BOTH CERVIX AND UTER 04/09/2019 OSVALDO MARINO [facility] Z90.722 ACQUIRED ABSENCE OF OVARIES, BILATERAL 04/11/2019 JULIA VILLARREAL URSULA B Ot Z01.8 18 ENCOUNTER FOR OTHER PREPROCEDURAL EXAMIN 04/12/2019 TIFFANY DUMONT DOIC B Ot E78.5 HYPERLIPIDEMIA, UNSPECIFIED 04/12/2019 JULIA VILLARREAL URSULA B Ot F41.9 ANXIETY DISORDER, UNSPECIFIED 04/12/2019 JULIA VILLARREAL URSULA B Ot I10 ESSENTIAL (PRIMARY) HYPERTENSION 04/12/2019 TIFFANY DUMONT DOIC B Ot K21.0 GASTRO-ESOPHAGEAL REFLUX DISEASE WITH ES 04/12/2019 JULIA VILLARREAL URSULA B Ot K22.8 OTHER SPECIFIED DISEASES OF ESOPHAGUS 04/12/2019 TIFFANY DUMONT DOIC B Ot K29.5 0 UNSPECIFIED CHRONIC GASTRITIS WITHOUT BL 04/12/2019 TIFFANY DUMONT DOIC B Ot K44.9 DIAPHRAGMATIC HERNIA WITHOUT OBSTRUCTION 04/12/2019 TIFFANY DUMONT DOIC B Ot Z79.8 99 OTHER [facility] (CURRENT) DRUG THERAPY 04/12/2019 TIFFANY DUMONT DOIC B Ot Z88.2 ALLERGY STATUS TO SULFONAMIDES STATUS 04/12/2019 TIFFANY DUMONT DOIC B Ot Z90.7 10 ACQUIRED ABSENCE OF BOTH CERVIX AND UTER 04/12/2019 JULIA VILLARREAL URSULA B Ot Z01.8 18 ENCOUNTER FOR OTHER PREPROCEDURAL EXAMIN 04/17/2019 TIFFANY DUMONT DOIC B Ot E78.5 HYPERLIPIDEMIA, UNSPECIFIED 04/17/2019 JULIA VILLARREAL URSULA B Ot F41.9 ANXIETY DISORDER, UNSPECIFIED 04/17/2019 JULIA VILLARREAL URSULA B Ot I10 ESSENTIAL (PRIMARY) HYPERTENSION 04/17/2019 JULIA VILLARREAL URSULA B Ot K21.0 GASTRO-ESOPHAGEAL REFLUX DISEASE WITH ES 04/17/2019 URSULA DUMONT DO Ot K22.8 OTHER SPECIFIED DISEASES OF ESOPHAGUS 04/17/2019 URSULA DUMONT DO Ot K29.5 0 UNSPECIFIED CHRONIC GASTRITIS WITHOUT BL 04/17/2019 URSULA DUMONT DO Ot K44.9 DIAPHRAGMATIC HERNIA WITHOUT OBSTRUCTION 04/17/2019 URSULA DUMONT DO Ot Z79.8 99 OTHER [facility] (CURRENT) DRUG THERAPY 04/17/2019 URSULA DUMONT DO Ot Z88.2 ALLERGY STATUS TO SULFONAMIDES STATUS 04/17/2019 JULIA VILLARREAL URSULA Henriquez Ot Z90.7 10 ACQUIRED ABSENCE OF BOTH CERVIX AND UTER 05/06/2019 CIERRA COCHRAN DOI Ot Z12.31 ENCNTR SCREEN MAMMOGRAM FOR MALIGNANT NE Procedures Code Description Performed By Per formed On [id number] RE SECTION OF SIGMOID COLON, PERCUTANEOUS 10/12/2015 [id number] RO BOTIC ASSISTED PROCEDURE OF TRUNK, PER 10/12/2015 [id number] ME ASURE OF CARDIAC SAMPL PRESSURE, L H 04/08/2019 [id number] FL UOROSCOPY OF MULT COR ART USING L OSM 04/08/2019 [id number] FL UOROSCOPY OF LEFT HEART USING LOW [...] 09:50 FREE TEXT EXTERNAL PLUS ABUNDANT NORMAL RCIKY NRG QUANTITY OF GROWTH Scant Growth NRG Bacteria identification in genital specimen by aerobe culture [id number] NRG Chlamydia trachomatis DNA detection by p robe and signal amplification method - 05/02/17 09:50 Chlamydia trachomatis DNA detection by p robe and target amplification method Not Detected Not Detected [id number] - 05/02/17 09:50 [id number] Negative Negative Serum herpes simplex virus 1 [...] Reactive Serum hepatitis C virus antibody detection Non-Qulin ctive Non-Reactive Microscopic examination by LORENZO preparati [...] Status Pt. Type Provider Facility Loc./Unit Complaint [id number] 04/29/2019 10:00:00 23:59:59 CLS Preadmit URSULA DUMONT DO V [facility] CARD EPIGASTRIC ABD PAIN [id number] 04/12/2019 11:15:00 13:52:00 DIS Outpatient URSULA DUMONT DO Via [facility] ENDO EPIGASTRIC PAIN [id number] 04/11/2019 05:48:00 12:51:00 DIS Outpatient URSULA DUMONT DO Via [facility] PREOP EGD [id number] 04/07/2019 19:45:00 13:50:00 DIS Inpatient OSVALDO MARINO FACC, POWER MARQUEZ CCD S Via [facility] CSD NSTEMI [id number] 03/08/2019 10:04:00 23:59:59 CLS Outpatient PROSPER COCHRAN DO Via [facility] RAD SCREENING [id number] 06/13/2018 09:51:00 23:59:59 CLS Outpatient THOMAS RUIZ MD Via [facility] RAD LLQ ABD SWELLING [id number] 10/06/2017 06:59:00 23:59:59 CLS Outpatient COCHRAN DO, PROSPER Via [facility] CARD CHEST PAIN IN ADULT [id number] 10/05/2017 12:25:00 018 23:59:59 CLS Outpatient COCHRAN DO, PROSPER Via [facility] CARD R07.9 CHEST PAIN IN KENAN LT [id number] 09/18/2017 07:26:00 018 23:59:59 CLS Outpatient COCHRAN DO, PROSPER Via [facility] RAD I71.4 ABDFOMINAL AORTIC ANEURYSM, WITHOUT RUPTURE [id number] 05/31/2017 20:31:00 018 23:59:59 CLS Outpatient COCHRAN DO, PROSPER Via [facility] 4THo CATHETER [id number] 05/05/2017 11:18:00 018 15:30:00 DIS Inpatient COCHRAN DO, PROSPER V ia [facility] 4TH DEHYDRATION [id number] 05/02/2017 08:59:00 017 10:59:00 DIS Emergency ERIN DO, ROBYN K Vi a [facility] ER BREAKOUTS AND PAIN IN G ENITAL AREA [id number] 03/01/2017 08:59:00 017 23:59:59 CLS Outpatient COCHRAN DO, PROSPER Via [facility] RAD Z12.31 [id number] 02/20/2017 15:15:00 017 23:59:59 CLS Outpatient COCHRAN DO, PROSPER Via [facility] RAD LT LEG PAIN M79.605 R60 .0 [id number] 03/08/2016 09:24:00 016 23:59:59 CLS Outpatient COCHRAN DO, PROSPER Via [facility] LAB ZOO.00,E78.0 [id number] 02/29/2016 14:49:00 016 23:59:59 CLS Outpatient COCHRAN DO, PROSPER Via [facility] RAD SCREENING [id number] 10/16/2015 09:45:00 016 11:45:00 DIS Inpatient COCHRAN DO, PROSPER V ia [facility] 4TH SWB, SIGMOID DIVERTIC S TRICTURE [id number] 10/12/2015 11:21:00 016 09:30:00 DIS Inpatient THOMAS RUIZ MD Via [facility] 4TH SIGMOID DIVERTIC STRICT URE [id number] 10/08/2015 10:15:00 016 12:19:00 DIS Outpatient THOMAS RUIZ MD Via [facility] PREOP STRICTURE [id number] 09/30/2015 12:06:00 016 17:15:00 DIS Outpatient JOSEPH MARINO, THOMAS Tom Via [facility] ABNORMAL CT;GERD [id number] 09/29/2015 05:37:00 016 08:28:00 DIS Outpatient THOMAS RUIZ MD Via [facility] PREOP ABNORMAL CT; GERD [id number] 09/11/2015 12:54:00 016 23:59:59 CLS Outpatient THOMAS RUIZ MD Via [facility] RAD ABD ABSCESS,DIVERTICUL ITIS,COLON THICKENING [id number] 08/25/2015 10:14:00 016 23:59:59 CLS Outpatient PROSPER COCHRAN DO Via [facility] RAD DIVERTICULITIS OF LARGE INTESTINE W/O PERFORATION [id number] 03/16/2015 13:57:00 015 23:59:59 CLS Outpatient PROSPER COCHRAN DO Via [facility] RAD HEADACHE [id number] 04/24/2014 07:22:00 014 11:30:00 DIS Outpatient SONIA CYR MD Via [facility] SDC SCALP LESION [id number] 04/14/2014 13:30:00 014 23:59:59 CLS Outpatient SONIA CYR MD Via [facility] PREOP SCALP LESION [id number] 02/22/2013 07:32:00 013 23:59:59 CLS Outpatient MECCA RHOADES MD Via [facility] RAD SCREENING [id number] 02/22/2013 07:29:00 23:59:59 CLS Outpatient DONA STERN MD Via [facility] SDC BARRX [id number] 02/20/2013 07:20:00 23:59:59 CLS Outpatient DONA STERN MD Via [facility] PREOP BARRX [id number] 12/19/2012 12:04:00 23:59:59 CLS Outpatient JF MARINO, MECCA Tom Via [facility] RAD HX OF ACUTE DIVERTICULITIS,ABD PAIN [id number] 12/06/2012 22:46:00 01:52:00 DIS Emergency ANDREA ANGEL MD Via [facility] ER ABD PAIN [id number] 10/10/2012 08:29:00 23:59:59 CLS Outpatient JACKELINE MARINO, VIN Looney Via [facility] LAB OA,HLP,VENOUS INSUFFICI NECY [id number] 04/14/2014 13:29:00 Document Registration [id number] 09/01/2011 06:28:00 Document Registration [id number] 08/30/2011 07:33:00 Document Registration [id number] 06/23/2011 08:29:00 Document Registration [id number] 11/18/2010 15:14:00 Document Registration [id number] 10/15/2010 15:17:00 Document Registration [id number] 02/25/2010 07:37:00 Document Registration [id number] 10/12/2009 08:12:00 Document Registration [id number] 09/22/2009 08:00:00 Document Registration [id number] 04/01/2009 15:26:00 Document Registration [email or web address] 04/24/2014 07:23:13 ACT Document Registration
[2019-05-24] MEDS ORDERED: ACHD5005 PO (12:11)
== END 2019-04-12 13:52 | disposition home or self-care (01) ==
LOC: ENDO 11:15
PROVIDERS: ATTEND Surgery
DX: K29.50 Unspecified chronic gastritis without bleeding (principal); K21.0 Gastro-esophageal reflux disease with esophagitis; K22.8 Other specified diseases of esophagus; K44.9 Diaphragmatic hernia without obstruction or gangrene; I10 Essential (primary) hypertension; E78.5 Hyperlipidemia, unspecified; F41.9 Anxiety disorder, unspecified; Z88.2 Allergy status to sulfonamides; Z90.710 Acquired absence of both cervix and uterus; Z79.899 Other long term (current) drug therapy
CPT/HCPCS: 88305

== ENCOUNTER → 2019-05-16 | Outpatient (CLI) | payer MEDICARE ==
[~2019-05-16] MED LIST changes: +CATHETER FLUSH 10 ML SYR IV PRN; +DIAZ5TAB3 PO; -DIAZ5TAB49 PO; -OMEP-280 PO; +OMEP20CA13 PO
--- NOTE | 2019-05-16 12:50 | Diagnostic Imaging Report ---
INDICATION: Epigastric pain. TECHNIQUE: Patient was administered 4.8 mCi technetium 99m Choletec intravenously and imaging over the abdomen was performed. After 60 minutes, the patient ingested one can of Ensure and a gallbladder ejection fraction was calculated. FINDINGS: There is homogeneous uptake of activity by the liver. Prompt excretion of activity into the gallbladder and common duct is seen. There is normal passage of activity into the small bowel. Gallbladder ejection fraction is 87%. IMPRESSION: 1. Patent cystic duct and common bile duct. 2. Gallbladder ejection fraction of 87%. Dictated by: Dictated on workstation # [id number]
== END ==
LOC: CARD 09:35
PROVIDERS: ATTEND Surgery
DX: R10.13 Epigastric pain (principal)
CPT/HCPCS: 78227

== ENCOUNTER 2019-05-22 05:37 | Outpatient (CLI) | payer MEDICARE ==
[~2019-05-22] VITALS: Ht 162 cm; Wt 66.8 kg
[~2019-05-22 05:37] MED LIST changes: -CATHETER FLUSH 10 ML SYR IV PRN; -DIAZ5TAB3 PO; +DIAZ5TAB49 PO; +OMEP-280 PO; -OMEP20CA13 PO
[2019-05-24] MEDS ORDERED: ACHD5005 PO (12:11)
== END 2019-05-22 09:53 | disposition home or self-care (01) ==
LOC: PREOP 05:37
PROVIDERS: ATTEND Surgery
DX: Z01.818 Encounter for other preprocedural examination (principal)

== ENCOUNTER → 2020-11-26 | Outpatient (CLI) | payer MEDICARE ==
[~2020-11-26] MED LIST changes: -ACYC400T PO; +ACYC400T21 PO; +AMLO-250 PO; -AMLO5TAB9 PO; -LIDO15SO2 MM; +LIDO20SO23 MM; +MULT-567 PO; -MULT1TAB69 PO; -OMEP-280 PO; +OMEP20CA18 PO; -POLY17PO31 PO; +POLY17PO54 PO
--- NOTE | 2020-11-26 12:18 | Diagnostic Imaging Report ---
PROCEDURE: US carotid duplex, bilateral. TECHNIQUE: Multiple real-time grayscale images were obtained over the carotid arteries in various projections, bilaterally. Additional spectral analysis and color Doppler duplex images were also obtained. INDICATION: Findings of some mild intimal thickening and soft plaque in the ball involving the bilateral common carotids. There is maintenance of the normal laminar blood flow pattern with normal spectral waveforms and normal velocities in the common internal and external carotids. The vertebral flow is in the normal antegrade direction bilaterally in the ICA to CCA. Percent ratios are normal bilaterally. No findings of a hemodynamically significant stenosis. IMPRESSION: Very slight intimal thickening and soft plaque in the carotids without hemodynamic significant stenosis Parameters based on the consensus panel Rodriguez-Scale and Doppler ultrasound criteria published March 2003, Radiology, Volume 229. DOPPLER (peak systolic velocity M/S Right Left CCA .74 .82 ICA Proximal .27 .39 ICA Mid .37 .64 ICA Distal .41 .92 RATIO .55 1.1 ECA .40 .75 VERT .37 .35 Dictated by: Dictated on workstation # [id number]
== END ==
LOC: RAD 10:45
PROVIDERS: ATTEND Internal Medicine
DX: I65.23 Occlusion and stenosis of bilateral carotid arteries (principal)
CPT/HCPCS: 93880

== ENCOUNTER 2021-01-07 09:58 | Outpatient (RCR) | payer MEDICARE ==
[~2021-01-07] VITALS: Ht 165.1 cm; Wt 66.8 kg
== END 2021-01-12 09:26 | disposition home or self-care (01) ==
LOC: PREOP 09:58
PROVIDERS: ATTEND Surgery
DX: Z01.818 Encounter for other preprocedural examination (principal)

== ENCOUNTER → 2021-01-15 | Outpatient (CLI) | payer MEDICARE | LOC: LAB FS 10:00 | PROVIDERS: ATTEND Surgery | DX: Z01.812 Encounter for preprocedural laboratory examination (principal); Z12.11 Encounter for screening for malignant neoplasm of colon; Z20.822 Contact with and (suspected) exposure to COVID-19; Z87.19 Personal history of other diseases of the digestive system | CPT/HCPCS: 87635 ==

== ENCOUNTER 2021-01-18 10:49 | Day surgery (SDC) | payer MEDICARE ==
[~2021-01-18] VITALS: Ht 165.1 cm; Wt 66.8 kg
[2021-01-18] MEDS ORDERED: LACTATED RINGERS 1,000 ML IV STA (10:58)
[2021-01-18] MEDS ORDERED: HURRICAINE EXT TUBE (BENZOCAINE) XX PRN (11:00)
[2021-01-18] MEDS ORDERED: LACTATED RINGERS 1,000 ML IV ONE (11:03)
[2021-01-18 11:05] VITALS: BP 137/87
--- NOTE | 2021-01-18 11:37 | Progress Note-Pre Operative ---
Pre-Operative Progress Note H&P Reviewed The H&P was reviewed, patient examined and no changes noted. Time Seen by Provider: 11:34 Date H&P Reviewed: Jan 18, 2021 Time H&P Reviewed: 11:34 Pre-Operative Diagnosis: Hx of Huerta's, GERD, Hx of colon resection, change in bowel habits URSULA DUMONT DO Jan 18, 2021 11:37
[2021-01-18] MEDS ORDERED: PROPOFOL INJECTION 50 ML IV ONE (12:49)
[2021-01-18 13:25] VITALS: BP 140/76
--- NOTE | 2021-01-18 13:26 | Progress Note-Post Operative ---
Post-Operative Progess Note Surgeon (s)/Polytechnic Registrar (s) Surgeon URSULA DUMONT DO Polytechnic Registrar: JOSIAH Tavarez Pre-Operative Diagnosis Hx of Huerta's, GERD, Hx of colon resection, change in bowel habits Post-Operative Diagnosis Gastritis hiatal hernia esophagitis Diverticula int hemorrhoids Procedure & Operative Findings Date of Procedure 01/18/21 Procedure Performed/Findings EGD with bx Colonoscopy PROCEDURE NOTE: After informed consent was obtained, the patient was brought to the endoscopy suite, placed in bed in left lateral decubitus position. She was administered IV sedation by the OUTREACH TEAM MEMBER who then monitored vitals the entire time, heart rate, blood pressure and pulse ox and the scope was inserted down the mouth through the esophagus into the stomach. On the way down, noted some mild esophagitis, took a picture, pushed into the stomach, pushed past the antrum into the duodenum. Duodenum looked good. Pulled back and did a biopsy of antrum, then retroflexed the scope, saw small hiatal hernia, took a picture of this and then pulled the scope into the GE junction, took another picture of the GE junction and then did a biopsy of the GE junction. Pushed the scope back into the stomach, suctioned all the air out of the stomach. At this point pulled the scope up the esophagus and out the mouth. Switched camera, switched gloves, went down below, started the colonoscopy. Pushed all the way into about 100 cm to get all the way to cecum, took a picture of the appendiceal orifice, noted the ileocecal valve and then slowly withdrew the scope, insufflating to look circumferentially at the jo starting in the cecum, up the ascending colon to the hepatic flexure, then down the transverse colon, splenic flexure, into the descending colon and found the anastomosis between descending colon and the rectum, took a picture. Finally retroflexed in the rectal vault, saw some minimal internal hemorrhoids and took a picture of this. The patient tolerated the procedure and she recovered in the endoscopy suite. Anesthesia Type IV sedation by OUTREACH TEAM MEMBER Estimated Blood Loss Estimated blood loss (mL): scant Specimens/Packing Specimens Removed antral bx GE jxn bx URSULA DUMONT DO Jan 18, 2021 13:26
--- NOTE | 2021-01-18 13:27 | Endoscopy Discharge Instruct ---
Endo Procedure/Findings Findings 1.: Gastritis 2.: Hiatal Hernia, Other Findings (Esophagitis) 3.: Diverticulosis 4.: Internal Hemorrhoids Discharge Instructions - Activity: You might feel a little sleepy until tomorrow. This is due to the medicine you received to relax you. Until tomorrow, you should: NOT drive a car, operate machinery or power tools. NOT drink any alcoholic beverages. NOT make any important decisions or sign importortant papers. Do not return to work until tomorrow, unless otherwise instructed. Resume previous activities tomorrow. Diet: Start by taking liquids. If you tolerate liquids, advance to solid food. 1.: EGD in 3 years 2.: Colonscopy in 10 years Notify Physician - If you experience excessive bleeding, unusual abdominal pain, fever, or chest pain, contact your doctor immediately. URSULA DUMONT DO Jan 18, 2021 13:27
[2021-01-18 13:30] VITALS: BP 131/74
[2021-01-18 13:35] VITALS: BP 131/74
[2021-01-18 13:55] VITALS: BP 130/75
--- NOTE | 2021-01-18 13:59 | Anesthesia-General Post-Op ---
MAC Patient Condition Mental Status/LOC: Same as Preop Cardiovascular: Satisfactory Nausea/Vomiting: Absent Respiratory: Satisfactory Pain: Controlled Complications: Absent Post Op Complications Complications None Follow Up Care/Instructions Patient Instructions None needed. Anesthesiology Discharge Order Discharge Order Patient is doing well, no complaints, stable vital signs, no apparent adverse anesthesia problems. EFFIE PANTOJA DO Jan 18, 2021 13:59
== END 2021-01-18 14:00 | disposition home or self-care (01) ==
LOC: ENDO 10:49
PROVIDERS: ATTEND Surgery
DX: K29.50 Unspecified chronic gastritis without bleeding (principal); K21.00 Gastro-esophageal reflux disease with esophagitis, without bleeding; R19.5 Other fecal abnormalities; K44.9 Diaphragmatic hernia without obstruction or gangrene; K57.30 Diverticulosis of large intestine without perforation or abscess without bleeding; K64.9 Unspecified hemorrhoids; I10 Essential (primary) hypertension; E78.5 Hyperlipidemia, unspecified; K21.9 Gastro-esophageal reflux disease without esophagitis; Z79.899 Other long term (current) drug therapy; Z98.0 Intestinal bypass and anastomosis status; Z90.49 Acquired absence of other specified parts of digestive tract; Z90.710 Acquired absence of both cervix and uterus; Z87.19 Personal history of other diseases of the digestive system

== ENCOUNTER → 2021-05-26 | Outpatient (CLI) | payer MEDICARE ==
--- NOTE | 2021-05-26 13:20 | Diagnostic Imaging Report ---
INDICATION: Routine screening. Comparison is made with prior mammogram 03/08/2019 and 03/01/2017. 2-D and 3-D bilateral screening mammography was performed with CAD. Both breasts are heterogeneously dense, limiting the sensitivity of mammography. There are benign parenchymal and vascular calcifications bilaterally. No mass or malignant-appearing microcalcifications are seen. Axillae are unremarkable. IMPRESSION: BI-RADS Category 2 No mammographic features suspicious for malignancy are identified. Dictated by: Dictated on workstation # [id number]
== END ==
LOC: RAD 11:00
PROVIDERS: ATTEND Internal Medicine
DX: Z12.31 Encounter for screening mammogram for malignant neoplasm of breast (principal)
CPT/HCPCS: 77063; 77067

== ENCOUNTER 2022-03-14 18:17 | Observation (INO) | payer MEDICARE ==
[~2022-03-14] VITALS: Ht 165.1 cm; Wt 75.3 kg
[~2022-03-14 18:17] MED LIST changes: +HYDR-4085 PO; -HYDR-87 PO
[2022-03-14] MEDS ORDERED: ONDANSETRON 4 MG/2 ML (SDV) Z0FRAN IV PRN (18:30)
[2022-03-14] MEDS ORDERED: BISACODYL 10 MG SUPP (DULCOLAX) PR PRN (18:30)
[2022-03-14] MEDS ORDERED: diphenhydrAMINE 25 MG TAB (BENADRYL) PO PRN (18:30)
[2022-03-14] MEDS ORDERED: ACETAMINOPHEN 325 MG TABLET PO PRN (18:30)
[2022-03-14] MEDS ORDERED: MELATONIN 3 MG TABLET PO PRN (18:30)
[2022-03-14] MEDS ORDERED: ONDANSETRON 4 MG (ZOFRAN) ORAL DISSOLVE TAB PO PRN (18:30)
[2022-03-14] MEDS ORDERED: CALCIUM CARBONATE 500 MG (TUMS) TAB.CHEW PO PRN (18:30)
[2022-03-14] MEDS ORDERED: diphenhydrAMINE 50 MG/ML INJ (BENADRYL) IVP PRN (18:30)
[2022-03-14] MEDS ORDERED: LACTULOSE SYRUP 10GM/15ML (ENULOSE) 30ML UDC PO PRN (18:30)
[2022-03-14] MEDS ORDERED: MILK OF MAGNESIA 400 MG/5 ML 30 ML UDC PO PRN (18:30)
[2022-03-14] MEDS ORDERED: ENOXAPARIN 100 MG/1 ML (LOVENOX) SYR SC SCH (18:30)
[2022-03-14] MEDS ORDERED: ANTACID SUSP 30 ML UDC (MYLANTA) PO PRN (18:30)
[2022-03-14] MEDS ORDERED: HYDROmorphone 2 MG/ML VIAL (DILAUDID) IV PRN (18:30)
[2022-03-14] MEDS ORDERED: polyethylene glycoL POWDER 17 GM (MIRALAX) PACK PO PRN (18:30)
[2022-03-14 19:20] VITALS: BP 150/85
[2022-03-14 19:23] LABS: BASOPHILS # (AUTO) 0.1 10^3/uL (0.0-0.1); BASOPHILS % (AUTO) 1 % (0-10); EOSINOPHILS # (AUTO) 0.4 10^3/uL (0.0-0.3); EOSINOPHILS % (AUTO) 4 % (0-10); HEMATOCRIT 36 % (35-52); HEMOGLOBIN 11.8 g/dL (11.5-16.0); LYMPHOCYTES # (AUTO) 3.1 10^3/uL (1.0-4.0); LYMPHOCYTES % (AUTO) 35 % (12-44); MEAN CORPUSCULAR HEMOGLOBIN 32 pg (25-34); MEAN CORPUSCULAR HGB CONC 33 g/dL (32-36); MEAN CORPUSCULAR VOLUME 97 fL (80-99); MEAN PLATELET VOLUME 9.9 fL (9.0-12.2); MONOCYTES # (AUTO) 0.6 10^3/uL (0.0-1.0); MONOCYTES % (AUTO) 7 % (0-12); NEUTROPHILS # (AUTO) 4.7 10^3/uL (1.8-7.8); NEUTROPHILS % (AUTO) 53 % (42-75); PLATELET COUNT 280 10^3/uL (130-400); WHITE BLOOD COUNT 8.9 10^3/uL (4.3-11.0)
--- NOTE | 2022-03-14 19:30 | Diagnostic Imaging Report ---
INDICATION: Dyspnea. Single AP view of the chest is obtained with comparison made to study of 10/12/2015. FINDINGS: Heart size and pulmonary vascularity are within normal limits, and the lungs are clear, bilaterally. IMPRESSION: Unremarkable chest. Dictated by: Dictated on workstation # [id number]
[2022-03-14 19:38] LABS: ERYTHROCYTE SEDIMENTATION RATE 14 MM/HR (0-30)
[2022-03-14 19:42] LABS: ALBUMIN 3.9 GM/DL (3.2-4.5); BILIRUBIN,TOTAL 0.2 MG/DL (0.1-1.0); CALCIUM 9.8 MG/DL (8.5-10.1); CREATININE SERUM 0.68 MG/DL (0.60-1.30); POTASSIUM 3.9 MMOL/L (3.6-5.0); TOTAL PROTEIN 6.8 GM/DL (6.4-8.2)
[2022-03-14] MEDS: ENOXAPARIN 80 MG/0.8 ML (LOVENOX) SYR SC SCH (20:09)
[2022-03-14] MEDS: ALPRAZolam 0.5 MG (XANAX) TAB PO SCH (20:09)
[2022-03-14] MEDS ORDERED: ASPIRIN E.C. 81 MG (ECOTRIN) TAB PO ONE ×2 (20:30→23:45)
[2022-03-14] MEDS: DOCUSATE SODIUM 100 MG (COLACE) CAP PO SCH (21:31)
[2022-03-14] MEDS: SENNOSIDES 8.6 MG (SENOKOT) TAB PO SCH (21:32)
[2022-03-14 22:46] VITALS: BP 150/85
[2022-03-14] MEDS ORDERED: RT-ALBUTEROL SULF 2.5 MG/3 ML PRE-MIX VIAL INH PRN (23:15)
[2022-03-14 23:53] VITALS: BP 117/59
[2022-03-15 03:54] VITALS: BP 115/72
[2022-03-15] MEDS: ALPRAZolam 0.5 MG (XANAX) TAB PO SCH ×5 (04:58→16:13)
[2022-03-15 05:50] LABS: BASOPHILS # (AUTO) 0.1 10^3/uL (0.0-0.1); BASOPHILS % (AUTO) 1 % (0-10); EOSINOPHILS # (AUTO) 0.4 10^3/uL (0.0-0.3); EOSINOPHILS % (AUTO) 7 % (0-10); HEMATOCRIT 35 % (35-52); HEMOGLOBIN 11.5 g/dL (11.5-16.0); LYMPHOCYTES # (AUTO) 2.9 10^3/uL (1.0-4.0); LYMPHOCYTES % (AUTO) 51 % (12-44); MEAN CORPUSCULAR HEMOGLOBIN 32 pg (25-34); MEAN CORPUSCULAR HGB CONC 33 g/dL (32-36); MEAN CORPUSCULAR VOLUME 96 fL (80-99); MEAN PLATELET VOLUME 10.1 fL (9.0-12.2); MONOCYTES # (AUTO) 0.4 10^3/uL (0.0-1.0); MONOCYTES % (AUTO) 7 % (0-12); NEUTROPHILS # (AUTO) 1.9 10^3/uL (1.8-7.8); NEUTROPHILS % (AUTO) 33 % (42-75); PLATELET COUNT 251 10^3/uL (130-400); WHITE BLOOD COUNT 5.7 10^3/uL (4.3-11.0)
[2022-03-15 06:03] LABS: ALBUMIN 3.4 GM/DL (3.2-4.5); BILIRUBIN,TOTAL 0.4 MG/DL (0.1-1.0); CALCIUM 8.8 MG/DL (8.5-10.1); CREATININE SERUM 0.66 MG/DL (0.60-1.30); POTASSIUM 3.8 MMOL/L (3.6-5.0)
[2022-03-15 07:25] VITALS: BP 144/74
[2022-03-15] MEDS: ENOXAPARIN 80 MG/0.8 ML (LOVENOX) SYR SC SCH (08:33)
[2022-03-15] MEDS ORDERED: ASPIRIN E.C. 81 MG (ECOTRIN) TAB PO SCH (09:00)
[2022-03-15] MEDS: SENNOSIDES 8.6 MG (SENOKOT) TAB PO SCH (09:18)
[2022-03-15] MEDS: DOCUSATE SODIUM 100 MG (COLACE) CAP PO SCH (09:18)
[2022-03-15] MEDS ORDERED: FLUT9.9S NSEACH (10:38)
[2022-03-15] MEDS ORDERED: CETI10TA17 PO (10:38)
[2022-03-15] MEDS ORDERED: CITA20TA9 PO (10:38)
[2022-03-15] MEDS ORDERED: PRED5DRO17 OD (10:38)
[2022-03-15] MEDS ORDERED: TRZ50T PO (10:38)
[2022-03-15] MEDS ORDERED: VALA500T7 PO (10:38)
[2022-03-15] MEDS ORDERED: FURO20TA4 PO (10:38)
[2022-03-15] MEDS ORDERED: OLME20TA24 PO (10:38)
[2022-03-15] MEDS ORDERED: KETO5DRO14 OD (10:38)
[2022-03-15] MEDS ORDERED: [UNRECOGNIZED DRUG - OTHER] PO (10:38)
[2022-03-15] MEDS ORDERED: POTA10TA PO (10:38)
[2022-03-15] MEDS ORDERED: [UNRECOGNIZED DRUG - CODE] PO (10:43)
--- NOTE | 2022-03-15 11:13 | Short Stay Summary ---
ALVERTORICHIE 03/15/22 1113: History of Present Illness History of Present Illness Reason for visit/HPI Patient is a 71-year-old female with a history of hypercholesterolemia and HTN who was admitted directly to [facility] on 03/14 for leg pain and edema. The patient states they always have edema in their lower extremities but it worsened yesterday and became painful. The patient was helping to put in a storm door yesterday and was on their feet for an extended period of time. Shortly after, the patient noted that her legs were more edematous and had become painful, especially while walking. The patient describes pain in both lower extremities but worse on the right especially on the medial aspect of the knee and characterizes the pain as a throbbing pressure. The patient reports that both the swelling and pain are improved from yesterday. There is still edema present in both lower extremities with the right leg being slightly more swollen than the left, and the patient reports some minor tenderness on palpation. The patient also complains of a dry cough and some mild rhinorrhea that they have had for the past month. The patient was seen in office for this and started on zyrtec and flonase which has helped alleviate those symptoms. The patient also states that they have had occasional pain in their left breast for the past few months. The patient describes it as an occasional shooting pain that will sometime awake her from sleep. She feels that this pain is located more in the breast tissue and not the chest wall and reports some minor tenderness when she palpates this area. The patient has not noticed any new masses or changes in her breast tissue, and had her latest mammogram in May. Date of Admission Mar 14, 2022 at 18:30 Date of Discharge Time Seen by Provider: 10:30 Attending Physician Eliana Cochran DO Admitting Physician Admitting Physician: Eliana Cochran DO Attending Physician: Eliana Cochran DO Consult Allergies and Home Medications Allergies Coded Allergies: Sulfa (Sulfonamide Antibiotics) (Verified Allergy, Unknown, FACE SWELLING/ SECRETIONS, 10/13/15) Patient Home Medication List Home Medication List Reviewed: Yes Biotin (Biotin) 1,000 Mcg Tablet, 1,000 MCG PO DAILY, (Reported) Entered as Reported by: JAXON RODRIGUEZ on 05/05/17 1000 Last Action: Reviewed Cetirizine HCl (Cetirizine HCl) 10 Mg Tablet, 10 MG PO DAILY, (Reported) Entered as Reported by: SOL CHUNG on 03/15/22 1038 Last Action: Reviewed Citalopram Hydrobromide (Citalopram HBr) 20 Mg Tablet, 20 MG PO Q48H, (Reported) Entered as Reported by: SOL CHUNG on 03/15/22 1038 Last Action: Reviewed Fluticasone Propionate (Flonase Allergy Relief) 50 Mcg/Actuation [facility].susp, 1-2 SPRAY NSEACH DAILY PRN for CONGESTION, (Reported) Entered as Reported by: SOL CHUNG on 03/15/22 1038 Last Action: Reviewed Furosemide (Furosemide) 20 Mg Tablet, 20-40 MG PO DAILY PRN for FLUID RETENTION, (Reported) Entered as Reported by: SOL CHUNG on 03/15/221037 Last Action: Reviewed Ginkgo Biloba [place] Extract (Ginkgo Biloba Extract) 60 Mg Capsule, 60 MG PO DAILY, (Reported) Entered as Reported by: JAXON RODRIGUEZ on 05/05/17 1000 Last Action: Reviewed Ketorolac Tromethamine (Ketorolac Tromethamine) 0.5 % Drops, 1 DROP OD QID, (Reported) Entered as Reported by: SOL CHUNG on 03/15/22 1038 Last Action: Reviewed Multivit-Min/Folic Acid/Ani985 (Alive Premium Women's Gummy) 80 Mcg-66.7 Mg Tab.chew, 1 EACH PO DAILY, (Reported) Entered as Reported by: SOL CHUNG on 03/15/22 1043 Last Action: Reviewed Olmesartan Medoxomil (Olmesartan Medoxomil) 20 Mg Tablet, 20 MG PO DAILY, (Reported) Entered as Reported by: SOL CHUNG on 03/15/22 1038 Last Action: Reviewed Potassium Chloride (K-Tab ER) 10 Meq Tablet.er, 10 MEQ PO DAILY PRN for WHEN TAKING FUROSEMIDE, (Reported) Entered as Reported by: SOL CHUNG on 03/15/22 1038 Last Action: Reviewed Prednisolone Acetate (Prednisolone Acetate) 1 % Drops.susp, 1 DROP OD QID, (Reported) Entered as Reported by: SOL CHUNG on 03/15/22 1038 Last Action: Reviewed Trazodone HCl (Trazodone HCl) 50 Mg Tablet, 50 MG PO HS PRN for SLEEP, (Reported) Entered as Reported by: SOL CHUNG on 03/15/22 1038 Last Action: Reviewed Valacyclovir HCl (Valacyclovir) 500 Mg Tablet, 500 MG PO DAILY, (Reported) Entered as Reported by: SOL CHUNG on 03/15/22 1038 Last Action: Reviewed Discontinued Medications Acyclovir (Acyclovir) 400 Mg Tablet, 400 MG PO BID, (Reported) Discontinued Reason: No Longer Taking Entered as Reported by: JAXON RODRIGEUZ on 04/08/19902 Last Action: Discontinued Amlodipine Besylate (Amlodipine Besylate) 5 Mg Tablet, 5 MG PO DAILY, (Reported) Discontinued Reason: No Longer Taking Entered as Reported by: ELVIS ANTOINE on 10/08/15 1042 Last Action: Discontinued Ascorbate Calcium (Vitamin C) 500 Mg Tablet, 500 MG PO DAILY, (Reported) Discontinued Reason: No Longer Taking Entered as Reported by: JAXON RODRIGUEZ on 05/05/17 1000 Last Action: Discontinued Bacillus Coagulans (Probiotic) 1 Each Tab.chew, 1 TAB.CHEW PO DAILY, (Reported) Discontinued Reason: No Longer Taking Entered as Reported by: JAXON RODRIGUEZ on 04/08/19902 Last Action: Discontinued Calcium Carbonate/Vitamin D3 (Calcium 500 + Vit D 200 Caplet) 1 Each Tablet, 1 TAB PO DAILY, (Reported) Discontinued Reason: No Longer Taking Entered as Reported by: JAXON RODRIGUEZ on 05/05/17 1000 Last Action: Discontinued Estradiol (Estradiol Tablet) 0.5 Mg Tablet, 0.5 MG VG Tu, (Reported) Discontinued Reason: No Longer Taking Entered as Reported by: JAXON RODRIGUEZ on 04/08/19902 Last Action: Discontinued Multivitamin (Multivitamins) 1 Each Tablet, 1 TAB PO DAILY, (Reported) Discontinued Reason: No Longer Taking Entered as Reported by: JAXON RODRIGUEZ on 05/05/17 1000 Last Action: Discontinued Mv-Mn/Folic/Lutein/Herbal 293 (Alive Men's 50 Plus Gummy) 120 Mcg-150 Mcg-50 Mg Tab.chew, 1 EACH PO DAILY, (Reported) Discontinued Reason: Prescription changed Entered as Reported by: SOL CHUNG on 03/15/22 1038 Last Action: New Order [place]-3 Fatty Acids ([place]-3) 1,000 Mg Capsule, 1,000 MG PO DAILY, (Reported) Discontinued Reason: No Longer Taking Entered as Reported by: JAXON RODRIGUEZ on 04/08/19902 Last Action: Discontinued Ubidecarenone (Co Q-10) 100 Mg Capsule, 100 MG PO DAILY, (Reported) Discontinued Reason: No Longer Taking Entered as Reported by: JAXON RODRIGUEZ on 04/08/19902 Last Action: Discontinued Past Aqoallk-Wsyevy-Kjzvko Hx Patient Social History Marrital Status: Smoking Status: Never a Smoker 2nd Hand Smoke Exposure: No Recent Hopitalizations: No Have you traveled recently?: No Alcohol Use?: Yes Pt feels they are or have been: No Immunizations Up To Date Tetanus Booster (TDap): Unknown Pediatric: Yes Date of Pneumonia Vaccine: Jun 01, 2010 Date of Influenza Vaccine: Apr 15, 2019 Seasonal Allergies Seasonal Allergies: No Surgeries Yes (colon resection) Abdominal, Bowel Surgery, Eye Surgery, Hysterectomy, Oophorectomy Respiratory No Currently Using CPAP: No Currently Using BIPAP: No Cardiovascular Yes High Cholesterol, Hypertension Neurological No Reproductive System Hx Reproductive Disorders: No Sexually Transmitted Disease: No HIV/AIDS: No Genitourinary No Gastrointestinal Yes (S/P COLON RESECTION) Gastroesophageal Reflux, Huerta's Esophagus, Chronic Constipation, Diverticulosis, Hiatal Hernia, Gall Bladder Disease Musculoskeletal Yes Arthritis Endocrine History of Endocrine Disorders: No HEENT History of HEENT Disorders: No Cancer No Psychosocial History of Psychiatric Problem: Yes Behavioral Health Disorders: Anxiety Integumentary History of Skin or Integumenta: No Blood Transfusions History of Blood Disorders: No Adverse Reaction to a Blood Tr: No Family Medical History Significant Family History: Other Conditions/Hx Family Hx: Unknown family medical history 19 FATHER 19 MOTHER G8 BROTHER G8 SISTER Review of Systems Constitutional: No chills, No fever EENTM: No hearing loss, No blurred vision Respiratory: cough (dry); No wheezing Cardiovascular: see HPI Gastrointestinal: No abdominal pain, No nausea, No vomiting Genitourinary: incontinence; No pain Skin: No change in color, No change in hair/nails Psychiatric/Neurological: Denies Numbness, Denies Tremors Physical Exam Vital Signs Vital Signs - First Documented 03/14/22 03/14/22 19:20 22:46 Temp 35.7 Pulse 73 Resp 18 B/P (MAP) 150/85 (106) Pulse Ox 95 O2 Delivery Room Air FiO2 21 Capillary Refill : Height, Weight, BMI Height: 5'5.00" Weight: 137lbs. 0.0oz. 62.522331pa; 27.62 BMI Method:Stated General Appearance: No Apparent Distress, WD/WN HEENT: PERRL/EOMI Neck: Non Tender, Supple Respiratory: Lungs Clear, Normal Breath Sounds, No Accessory Muscle Use Cardiovascular: Regular Rate, Rhythm, No Murmur Gastrointestinal: Non Tender, Soft Rectal: Deferred Back: No CVA Tenderness Extremity: Calf Tenderness (minor, R LE), Pedal Edema (B/l LE) Neurologic/Psychiatric: Alert, Oriented x3 Skin: Normal Color, Warm/Dry Lymphatic: No Adenopathy Clinical Quality Measures DVT/VTE Risk/Contraindication: Contraindications-Mechi: Other *list below* Other: dvt Short Stay Diagnosis Discharge Diagnosis-Short Stay Admission Diagnosis: Leg pain/edema Final Discharge Diagnosis: Edema Leg pain HTN Hypercholesterolemia Depression Elevated troponin Allergic rhinitis Conclusion Labs Laboratory Tests 03/14/22 19:12: White Blood Count 8.9, Red Blood Count 3.74L, Hemoglobin 11.8, Hematocrit 36, Mean Corpuscular Volume 97, Mean Corpuscular Hemoglobin 32, Mean Corpuscular Hemoglobin Concent 33, Red Cell Distribution Width 12.7, Platelet Count 280, Mean Platelet Volume 9.9, Immature Granulocyte % (Auto) 0, Neutrophils (%) (Auto) 53, Lymphocytes (%) (Auto) 35, Monocytes (%) (Auto) 7, Eosinophils (%) (Auto) 4, Basophils (%) (Auto) 1, Neutrophils # (Auto) 4.7, Lymphocytes # (Auto) 3.1, Monocytes # (Auto) 0.6, Eosinophils # (Auto) 0.4H, Basophils # (Auto) 0.1, Immature Granulocyte # (Auto) 0.0, Erythrocyte Sedimentation Rate 14, D-Dimer 0.58H, Sodium Level 139, Potassium Level 3.9, Chloride Level 103, Carbon Dioxide Level 25, Anion Gap 11, Blood Urea Nitrogen 14, Creatinine 0.68, Estimat Glomerular Filtration Rate 92, BUN/Creatinine Ratio 21, Glucose Level 92, Lactic Acid Level 0.57, Calcium Level 9.8, Corrected Calcium 9.9, Total Bilirubin 0.2, Aspartate Amino Transf (AST/SGOT) 19, Alanine Aminotransferase (ALT/SGPT) 14, Alkaline Phosphatase 70, Troponin I 0.032H, C-Reactive Protein High Sensitivity 0.25, B-Type Natriuretic Peptide 27.1, Total Protein 6.8, Albumin 3.9, Procalcitonin 0.02 03/15/22 05:20: White Blood Count 5.7, Red Blood Count 3.60L, Hemoglobin 11.5, Hematocrit 35, Mean Corpuscular Volume 96, Mean Corpuscular Hemoglobin 32, Mean Corpuscular Hemoglobin Concent 33, Red Cell Distribution Width 12.5, Platelet Count 251, Mean Platelet Volume 10.1, Immature Granulocyte % (Auto) 0, Neutrophils (%) (Auto) 33L, Lymphocytes (%) (Auto) 51H, Monocytes (%) (Auto) 7, Eosinophils (%) (Auto) 7, Basophils (%) (Auto) 1, Neutrophils # (Auto) 1.9, Lymphocytes # (Auto) 2.9, Monocytes # (Auto) 0.4, Eosinophils # (Auto) 0.4H, Basophils # (Auto) 0.1, Immature Granulocyte # (Auto) 0.0, Sodium Level 140, Potassium Level 3.8, Chloride Level 106, Carbon Dioxide Level 24, Anion Gap 10, Blood Urea Nitrogen 16, Creatinine 0.66, Estimat Glomerular Filtration Rate 93, BUN/Creatinine Ratio 24, Glucose Level 91, Calcium Level 8.8, Corrected Calcium 9.3, Total Bilirubin 0.4, Aspartate Amino Transf (AST/SGOT) 17, Alanine Aminotransferase (ALT/SGPT) 12, Alkaline Phosphatase 63, Troponin I 0.034H, Total Protein 6.0L, Albumin 3.4 Conclusion/Plan Venous US of the right LE revealed no venous thrombosis Cardiology consulted Had a previous slight elevation in troponin in 2019 followed by a normal heart cath Restart home meds Compression socks and elevation Will schedule mammogram outpatient ELIANA COCHRAN DO 03/16/22 0538: Allergies and Home Medications Allergies Coded Allergies: Sulfa (Sulfonamide Antibiotics) (Verified Allergy, Unknown, FACE SWELLING/ SECRETIONS, 10/13/15) Patient Home Medication List Biotin (Biotin) 1,000 Mcg Tablet, 1,000 MCG PO DAILY, (Reported) Entered as Reported by: JAXON RODRIGUEZ on 05/05/17 1000 Last Action: Reviewed Cetirizine HCl (Cetirizine HCl) 10 Mg Tablet, 10 MG PO DAILY, (Reported) Entered as Reported by: SOL CHUNG on 03/15/22 1038 Last Action: Reviewed Citalopram Hydrobromide (Citalopram HBr) 20 Mg Tablet, 20 MG PO Q48H, (Reported) Entered as Reported by: SOL CHUNG on 03/15/22 1038 Last Action: Reviewed Fluticasone Propionate (Flonase Allergy Relief) 50 Mcg/Actuation [facility].susp, 1-2 SPRAY NSEACH DAILY PRN for CONGESTION, (Reported) Entered as Reported by: SOL CHUNG on 03/15/22 1038 Last Action: Reviewed Furosemide (Furosemide) 20 Mg Tablet, 20-40 MG PO DAILY PRN for FLUID RETENTION, (Reported) Entered as Reported by: SOL CHUNG on 03/15/221037 Last Action: Reviewed Ginkgo Biloba [place] Extract (Ginkgo Biloba Extract) 60 Mg Capsule, 60 MG PO DAILY, (Reported) Entered as Reported by: JAXON RODRIGUEZ on 05/05/17 1000 Last Action: Reviewed Ketorolac Tromethamine (Ketorolac Tromethamine) 0.5 % Drops, 1 DROP OD QID, (Reported) Entered as Reported by: SOL CHUNG on 03/15/221037 Last Action: Reviewed Multivit-Min/Folic Acid/Ngg356 (Alive Premium Women's Gummy) 80 Mcg-66.7 Mg Tab.chew, 1 EACH PO DAILY, (Reported) Entered as Reported by: SOL CHUNG on 03/15/22 1043 Last Action: Reviewed Olmesartan Medoxomil (Olmesartan Medoxomil) 20 Mg Tablet, 20 MG PO DAILY, (Reported) Entered as Reported by: SOL CHUNG on 03/15/22 1038 Last Action: Reviewed Potassium Chloride (K-Tab ER) 10 Meq Tablet.er, 10 MEQ PO DAILY PRN for WHEN TAKING FUROSEMIDE, (Reported) Entered as Reported by: SOL CHUNG on 03/15/221037 Last Action: Reviewed Prednisolone Acetate (Prednisolone Acetate) 1 % Drops.susp, 1 DROP OD QID, (Reported) Entered as Reported by: SOL CHUNG on 03/15/221037 Last Action: Reviewed Trazodone HCl (Trazodone HCl) 50 Mg Tablet, 50 MG PO HS PRN for SLEEP, (Reported) Entered as Reported by: SOL CHUNG on 03/15/22 1038 Last Action: Reviewed Valacyclovir HCl (Valacyclovir) 500 Mg Tablet, 500 MG PO DAILY, (Reported) Entered as Reported by: SOL CHUNG on 03/15/22 1038 Last Action: Reviewed Discontinued Medications Acyclovir (Acyclovir) 400 Mg Tablet, 400 MG PO BID, (Reported) Discontinued Reason: No Longer Taking Entered as Reported by: JAXON RODRIGUEZ on 04/08/19902 Last Action: Discontinued Amlodipine Besylate (Amlodipine Besylate) 5 Mg Tablet, 5 MG PO DAILY, (Reported) Discontinued Reason: No Longer Taking Entered as Reported by: ELVIS ANTOINE on 10/08/15 1042 Last Action: Discontinued Ascorbate Calcium (Vitamin C) 500 Mg Tablet, 500 MG PO DAILY, (Reported) Discontinued Reason: No Longer Taking Entered as Reported by: JAXON RODRIGUEZ on 05/05/17 1000 Last Action: Discontinued Bacillus Coagulans (Probiotic) 1 Each Tab.chew, 1 TAB.CHEW PO DAILY, (Reported) Discontinued Reason: No Longer Taking Entered as Reported by: JAXON RODRIGUEZ on 04/08/19902 Last Action: Discontinued Calcium Carbonate/Vitamin D3 (Calcium 500 + Vit D 200 Caplet) 1 Each Tablet, 1 TAB PO DAILY, (Reported) Discontinued Reason: No Longer Taking Entered as Reported by: JAXON RODRIGUEZ on 05/05/17 1000 Last Action: Discontinued Estradiol (Estradiol Tablet) 0.5 Mg Tablet, 0.5 MG VG Tu, (Reported) Discontinued Reason: No Longer Taking Entered as Reported by: JAXON RODRIGUEZ on 04/08/19902 Last Action: Discontinued Multivitamin (Multivitamins) 1 Each Tablet, 1 TAB PO DAILY, (Reported) Discontinued Reason: No Longer Taking Entered as Reported by: JAXON RODRIGUEZ on 05/05/17 1000 Last Action: Discontinued Mv-Mn/Folic/Lutein/Herbal 293 (Alive Men's 50 Plus Gummy) 120 Mcg-150 Mcg-50 Mg Tab.chew, 1 EACH PO DAILY, (Reported) Discontinued Reason: Prescription changed Entered as Reported by: SOL CHUNG on 03/15/22 1038 Last Action: New Order [place]-3 Fatty Acids ([place]-3) 1,000 Mg Capsule, 1,000 MG PO DAILY, (Reported) Discontinued Reason: No Longer Taking Entered as Reported by: JAXON RODRIGUEZ on 04/08/19902 Last Action: Discontinued Ubidecarenone (Co Q-10) 100 Mg Capsule, 100 MG PO DAILY, (Reported) Discontinued Reason: No Longer Taking Entered as Reported by: JAXON RODRIGUEZ on 04/08/19902 Last Action: Discontinued Past Edwnvsl-Rttwzk-Glkakh Hx Family Medical History Family Hx: Unknown family medical history 19 FATHER 19 MOTHER G8 BROTHER G8 SISTER Short Stay Diagnosis Discharge Diagnosis-Short Stay Admission Diagnosis: Right leg edema and pain Edema Final Discharge Diagnosis: Venous insufficiency/lymphedema Elevated troponin with essentially normal cath 2019 Conclusion Conclusion/Plan DC home Updated patient on results and plan via phone call to patient and she will see me next week and get compression stockings and wear faithfully Supervisory-Addendum Brief Verification & Attestation Participated in pt care: history, MDM, physical Personally performed: exam, history, MDM, supervision of care Care discussed with: Medical Student Procedures: n/a Results interpretation: Verified all documentation Verification and Attestation of Medical Student E/M Service A medical student performed and documented this service in my presence. I reviewed and verified all information documented by the medical student and made modifications to such information, when appropriate. I personally performed the physical exam and medical decision making. Eliana Cochran Mar 16, 2022,05:36 RICHIE DEL TORO Mar 15, 2022 11:13 ELIANA COCHRAN DO Mar 16, 2022 05:38
--- NOTE | 2022-03-15 11:19 | Diagnostic Imaging Report ---
PROCEDURE: US right lower extremity venous. TECHNIQUE: Multiple real-time grayscale images were obtained over the right lower extremity in various projections. Additional spectral analysis and color Doppler duplex images were also obtained. INDICATION: Right lower extremity edema. FINDINGS: Color Doppler imaging. There is normal compression and augmentation of flow throughout the left lower extremity. IMPRESSION: Negative right lower extremity for venous thrombosis. Dictated by: Dictated on workstation # [id number]
[2022-03-15 11:32] VITALS: BP 139/75
[2022-03-15] MEDS ORDERED: ARTIFICAL TEARS 0.4 ML UNIT DOSE (REFRESH PLUS) OU PRN (12:00)
--- NOTE | 2022-03-15 12:21 | Consultation-Cardiology ---
HPI-Cardiology Cardiology Consultation Date of Consultation 03/15/22 Date of Admission Time Seen by Provider: 10:30 Indication: BLE edema, right leg pain HPI Patient is a 71 y/o female with history of HTN, HLP. C/o increased pain and edema to BLE over the past months. States pain to right leg became much worse yesterday and she was having difficulty ambulating. Denies any chest pain, dyspnea, dizziness or lightheadedness. Reports pain in right leg at medial aspect of knee and calf. Home Medications & Allergies Allergies: Coded Allergies: Sulfa (Sulfonamide Antibiotics) (Verified Allergy, Unknown, FACE SWELLING/ SECRETIONS, 10/13/15) Home Medication List Reviewed: Yes FFI-Asoigp-Zklhwr Hx Patient Social History Marital Status: Employed/Student: retired Smoking Status: Never a Smoker 2nd Hand Smoke Exposure: No Recent Hopitalizations: No Have you traveled recently?: No Alcohol Use?: Yes Immunizations Up To Date Tetanus Booster (TDap): Unknown Date of Pneumonia Vaccine: Jun 01, 2010 Date of Influenza Vaccine: Apr 15, 2019 Past Medical History HTN, HLP Family Medical History Significant Family History: Other Conditions/Hx Family History: Unknown family medical history 19 FATHER 19 MOTHER G8 BROTHER G8 SISTER Review of Systems-General Review of Systems Constitutional: no symptoms reported, see HPI; No chills, No fever EENTM: see HPI, no symptoms reported; No hearing loss, No blurred vision Respiratory: no symptoms reported, see HPI; No wheezing Cardiovascular: see HPI; No chest pain; edema; No Hx of Intervention, No palpitations Gastrointestinal: No abdominal pain, No nausea, No vomiting Genitourinary: incontinence; No pain Skin: No change in color, No change in hair/nails Psychiatric/Neurological: Denies Numbness, Denies Tremors Reviewed Test Results Reviewed Test Results Lab Laboratory Tests 03/14/22 19:12: White Blood Count 8.9, Red Blood Count 3.74L, Hemoglobin 11.8, Hematocrit 36, Mean Corpuscular Volume 97, Mean Corpuscular Hemoglobin 32, Mean Corpuscular Hemoglobin Concent 33, Red Cell Distribution Width 12.7, Platelet Count 280, Mean Platelet Volume 9.9, Immature Granulocyte % (Auto) 0, Neutrophils (%) (Auto) 53, Lymphocytes (%) (Auto) 35, Monocytes (%) (Auto) 7, Eosinophils (%) (Auto) 4, Basophils (%) (Auto) 1, Neutrophils # (Auto) 4.7, Lymphocytes # (Auto) 3.1, Monocytes # (Auto) 0.6, Eosinophils # (Auto) 0.4H, Basophils # (Auto) 0.1, Immature Granulocyte # (Auto) 0.0, Erythrocyte Sedimentation Rate 14, D-Dimer 0.58H, Sodium Level 139, Potassium Level 3.9, Chloride Level 103, Carbon Dioxide Level 25, Anion Gap 11, Blood Urea Nitrogen 14, Creatinine 0.68, Estimat Glomerular Filtration Rate 92, BUN/Creatinine Ratio 21, Glucose Level 92, Lactic Acid Level 0.57, Calcium Level 9.8, Corrected Calcium 9.9, Total Bilirubin 0.2, Aspartate Amino Transf (AST/SGOT) 19, Alanine Aminotransferase (ALT/SGPT) 14, Alkaline Phosphatase 70, Troponin I 0.032H, C-Reactive Protein High Sensitivity 0.25, B-Type Natriuretic Peptide 27.1, Total Protein 6.8, Albumin 3.9, Procalcitonin 0.02 03/15/22 05:20: White Blood Count 5.7, Red Blood Count 3.60L, Hemoglobin 11.5, Hematocrit 35, Mean Corpuscular Volume 96, Mean Corpuscular Hemoglobin 32, Mean Corpuscular Hemoglobin Concent 33, Red Cell Distribution Width 12.5, Platelet Count 251, Mean Platelet Volume 10.1, Immature Granulocyte % (Auto) 0, Neutrophils (%) (Auto) 33L, Lymphocytes (%) (Auto) 51H, Monocytes (%) (Auto) 7, Eosinophils (%) (Auto) 7, Basophils (%) (Auto) 1, Neutrophils # (Auto) 1.9, Lymphocytes # (Auto) 2.9, Monocytes # (Auto) 0.4, Eosinophils # (Auto) 0.4H, Basophils # (Auto) 0.1, Immature Granulocyte # (Auto) 0.0, Sodium Level 140, Potassium Level 3.8, Chloride Level 106, Carbon Dioxide Level 24, Anion Gap 10, Blood Urea Nitrogen 16, Creatinine 0.66, Estimat Glomerular Filtration Rate 93, BUN/Creatinine Ratio 24, Glucose Level 91, Calcium Level 8.8, Corrected Calcium 9.3, Total Bilirubin 0.4, Aspartate Amino Transf (AST/SGOT) 17, Alanine Aminotransferase (ALT/SGPT) 12, Alkaline Phosphatase 63, Troponin I 0.034H, Total Protein 6.0L, Albumin 3.4 ECG Impression ECG Initial ECG Rhythm: Normal Sinus Physical Exam Physical Exam Vital Signs Vital Signs - First Documented 03/14/22 03/14/22 19:20 22:46 Temp 35.7 Pulse 73 Resp 18 B/P (MAP) 150/85 (106) Pulse Ox 95 O2 Delivery Room Air FiO2 21 Capillary Refill : Height, Weight, BMI Height: 5'5.00" Weight: 137lbs. 0.0oz. [id number]; 27.62 BMI Method:Stated General Appearance: No Apparent Distress, WD/WN HEENT: PERRL/EOMI Neck: Non Tender, Supple Respiratory: Lungs Clear, Normal Breath Sounds, No Accessory Muscle Use Cardiovascular: Regular Rate, Rhythm, No Murmur Gastrointestinal: Non Tender, Soft Rectal: Deferred Back: No CVA Tenderness Extremity: Calf Tenderness (minor, R LE), Pedal Edema (B/l LE) Neurologic/Psychiatric: Alert, Oriented x3 Skin: Normal Color, Warm/Dry Lymphatic: No Adenopathy A/P-Cardiology Admission Diagnosis BLE pain and edema HTN HLP elevated troponin Assessment/Plan BLE pain and edema, right greater than left. Underwent Venous US to RLE revealing no DVT. Recommend compression stocking and full venous insufficiency study as outpatient. I will evaluate 2D Echo Minimally elevated troponin of undetermined etiology, noted to have minimally elevated troponin in 2019. Nonobstructive coronary artery disease per cardiac catheterization done in 2019 HTN, restart home blood pressure medications and continue to monitor HLP, monitored as outpatient. Thank you for allowing us to participate in the management of Ms. Prado. This is Amber Rucker PA-C, as a scribe for Dr. Escamilla. Patient was seen and evaluated with Amber, I interviewed and examined the patient and discussed the management plan and agree with the current scribed note Patient has been having lower extremity edema which has been causing some pain especially behind her right knee, she has small varicose vein. Probably due to venous insufficiency, venous Doppler did not show any DVT. I recommended the use of compression socks and evaluate if it helped. BMP is normal. Will evaluate 2D echo Patient was noted to have mild elevation in troponin. She also had normal cardiac cath in 2019 after having mild elevation in troponin Patient has history of hypertension and hyperlipidemia, restart home medication and monitor level I reviewed the note and made few minor modification using Italic font Clinical Quality Measures DVT/VTE Risk/Contraindication: Contraindications-Mechi: Other *list below* Other: dvt AMBER RICE Mar 15, 2022 12:21 NOHEMI ESCAMILLA MD Mar 15, 2022 13:04
== END 2022-03-15 13:42 | disposition home or self-care (01) ==
LOC: UNDOADMOB 18:30 → 4TH 18:30 → UNDODISOB 03-15 13:42
PROVIDERS: ADMIT Internal Medicine; ATTEND Internal Medicine
DX: M79.605 Pain in left leg (principal); M79.604 Pain in right leg; R60.0 Localized edema; I25.10 Atherosclerotic heart disease of native coronary artery without angina pectoris; I10 Essential (primary) hypertension; E78.5 Hyperlipidemia, unspecified; R77.8 Other specified abnormalities of plasma proteins
CPT/HCPCS: 71045; 80053 ×2; 83605; 83880; 84145; 84484 ×2; 85025 ×2; 85379; 85652; 86141; 93005; 93971; 96372 ×2; C8929; G0378; G0379; 36415; 93306

== ENCOUNTER → 2022-05-18 | Outpatient (CLI) | payer MEDICARE ==
[~2022-05-18] MED LIST changes: +CETI10TA17 PO; +CITA20TA9 PO; +FLUT9.9S NSEACH; +FURO20TA4 PO; +KETO5DRO14 OD; +OLME20TA24 PO; +POTA10TA PO; +PRED5DRO17 OD; +TRZ50T PO; +VALA500T7 PO; +[UNRECOGNIZED DRUG - CODE] PO; +[UNRECOGNIZED DRUG - OTHER] PO
--- NOTE | 2022-05-18 19:10 | Diagnostic Imaging Report ---
INDICATION: Pain in the left breast in the region of the nipple. EXAMINATION: Sonography interrogation of the area of pain in the periareolar and retroareolar region was performed. FINDINGS: No discrete mass is identified. No sonographic abnormality is identified. No fluid collection or cyst is seen. IMPRESSION: No sonographic abnormality is detected. ACR BI-RADS Category 1: Negative. Result letter will be mailed to the patient. Note: At least 10% of breast cancer is not imaged by mammography. Dictated by: Dictated on workstation # [id number]
--- NOTE | 2022-05-18 19:12 | Diagnostic Imaging Report ---
INDICATION: Pain around the left nipple. COMPARISON: Prior mammograms from 05/26/2021 and 03/08/2019. EXAMINATION: 2D and 3D bilateral diagnostic mammography was performed with CAD. The current study was also evaluated with a Computer Aided Detection (CAD) system. FINDINGS: Both breasts are heterogeneously dense, limiting the sensitivity of mammography. No mass or malignant-appearing microcalcifications are seen. Axillae are unremarkable. IMPRESSION: No mammographic features suspicious for malignancy are identified. Even so, sonographic interrogation of the area of pain in the left breast is recommended and will be performed today. ACR BI-RADS Category 0: Incomplete. (Needs additional imaging evaluation). Result letter will be mailed to the patient. Note: At least 10% of breast cancer is not imaged by mammography. Dictated by: Dictated on workstation # [id number]
== END ==
LOC: RAD 14:03
PROVIDERS: ATTEND Internal Medicine
DX: N64.4 Mastodynia (principal); N63.0 Unspecified lump in unspecified breast
CPT/HCPCS: 76642; 77066; G0279; 77062

== ENCOUNTER → 2022-10-24 | Outpatient (CLI) | payer MEDICARE ==
[~2022-10-24] MED LIST changes: -KETO5DRO14 OD; +KETO5DRO20 OD; +LIDO15SO3 MM; -LIDO20SO23 MM
--- NOTE | 2022-10-24 13:57 | Diagnostic Imaging Report ---
Indication: Chest pain PA and lateral chest obtained at 12:00 p.m. Heart is borderline in size. Mediastinal silhouette is unremarkable. The lungs are clear. There is no pneumothorax or pleural fluid. 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 Impression: No acute process in the chest. Dictated by: Dictated on workstation # [id number]
== END ==
LOC: CARD 11:05
PROVIDERS: ATTEND Internal Medicine
DX: R07.9 Chest pain, unspecified (principal)
CPT/HCPCS: 71046; C8929; 93005; 93306